=== PATIENT | male | born 1925 | race Caucasian/White ===

== ENCOUNTER 2017-07-17 13:52 | Inpatient (IN) | payer OTHER, MEDICARE ==
[~2017-07-17] VITALS: Ht 165.1 cm; Wt 70.8 kg
[~2017-07-17 13:52] MED LIST: ATORVASTATIN CA40 M1 PO; BACLOFEN10 M1 PO; DILTIAZEM 24HR240 MG PO; DONEPEZIL HCL5 MG PO; ISOSORBIDE MONO30 M1 PO; LISINOPRIL10 M1 PO; NITROSTAT0.4 M1 SL; PHENYTOIN SODI100 MG PO; RISPERDAL0.25 M1 PO; RISPERDAL1 M1 PO; TRAMADOL HCL50 M1 PO; VITAMIN B-121000 MC3 PO
[2017-07-17 14:22] LABS: ABSOLUTE BASOPHIL COUNT 0 /CUMM (0.0-0.2); ABSOLUTE EOSINOPHIL COUNT 0.3 /CUMM (0.0-0.7); ABSOLUTE GRANULOCYTE CT 4.6 /CUMM (1.4-6.5); ABSOLUTE LYMPH COUNT 0.9 /CUMM (1.2-3.4); ABSOLUTE MONOCYTE COUNT 0.5 /CUMM (0.10-0.60); BASOPHIL % 0.4 % (0.0-2.0); HEMATOCRIT 39.5 % (42-52); MEAN CORPUSCULAR HGB 28.8 PG (27.0-31.0); MEAN CORPUSCULAR HGB CONC 32.9 G/DL (33.0-37.0); MEAN CORPUSCULAR VOLUME 87.5 FL (80.0-94.0); MEAN PLATELET VOLUME 7.9 FL (7.4-10.4); PLATELET COUNT 166 /CUMM (130-400); RBC DISTRIBUTION WIDTH 14.6 % (11.5-14.5); RED BLOOD CELL CT 4.52 /CUMM (4.70-6.10); WHITE BLOOD CELL COUNT 6.3 /CUMM (4.8-10.8)
[2017-07-17 14:23] LABS: PT 12.8 SEC (9.4-12.5)
--- NOTE | 2017-07-17 15:06 | ED AMS/SEIZURE/WEAK/DIZZY ---
History of Present Illness General Chief Complaint: Altered Mental Status Stated Complaint: BIBA ALTERED MENTAL STATUS Source: patient, family Exam Limitations: poor historian Vital Signs & Intake/Output Vital Signs & Intake/Output Vital Signs Date Time Temp Pulse Resp B/P B/P Pulse O2 O2 Flow FiO2 Mean Ox Delivery Rate 07/17 1357 98.5 100 18 161/70 95 Room Air Allergies Coded Allergies: adhesive (UNKNOWN 12/05/15) Reconcile Medications Aspirin (Ecotrin*) 81 MG TABLET.DR 1 TAB PO DAILY HEART HEALTH (Reported) Atorvastatin Calcium 40 MG TABLET 1 TAB PO DAILY CHOLESTEROL (Reported) Cyanocobalamin (Vitamin B-12) (Unknown Strength) TABLET (Unknown Dose) PO AD SUPPLEMENT (Reported) Cyanocobalamin (Vitamin B-12) 1,000 MCG TABLET 1 TAB PO DAILY VITAMIN SUPPORT (Reported) Diltiazem HCl (Diltiazem 24HR ER) 240 MG CAP.ER.24H 1 CAP PO DAILY HEART/BP ( Reported) Donepezil HCl 5 MG TABLET 1 TAB PO DAILY MEMORY (Reported) Folic Acid 1 MG TABLET 1 TAB PO DAILY VITAMIN SUPPORT (Reported) Isosorbide Mononitrate (Isosorbide Mononitrate ER) 30 MG TAB.ER.24H 1 TAB PO DAILY HEART (Reported) Lisinopril 10 MG TABLET 1 TAB PO DAILY BP (Reported) Nitroglycerin (Nitrostat) (Unknown Strength) TAB.SUBL 0.3 MG SL AD PRN HEART (Reported) 1st sign of attack; may repeat every 5 minutes until relief; if pain persists after 3 tablets in 15 minutes, prompt medical att Phenytoin Sodium Extended 100 MG CAPSULE 1 CAP PO BID SEIZURES (Reported) Risperidone (Risperdal) 0.25 MG TABLET 1 TAB PO 4 TIMES/DAY MENTAL HEALTH ( Reported) Vit C/E/Zn/Coppr/Lutein/Zeaxan (Preservision Areds 2 Softgel) 250-200-40 CAPSULE 1 CAP PO BID EYE (Reported) Triage Note: PER EMS LAST SEEN BY STACI AT 2300 07/16/17,AIDE WENT TO HOUSE TODAY, PT WAS STILL ASLEEP, WHICH IS UNUSUAL FOR PT STRONG ODOR OF URINE. PER EMS UNABLE TO SPEAK FOLLOW DIRECTION UPON ED ARRIVAL ABLE TO SLOWLY MOVE ALL 4 EXTREMITIES WITH EQUAL STRENGTH, PT ANSWERS SIMPLE QUESTIONS APPROP INCONTINENT OF LARGE AMT OF STRONG ODOROUS URINE Triage Nurses Notes Reviewed? yes HPI: Patient presents for evaluation of altered mental status noted this morning by family. He was last seen in his usual state of health at about 11:00 last night. Today the patient seemed to sleep a lot more than usual. (Haylee GRIFFIN,Harvinder Trinidad) Past History Travel History Traveled to [place] past 21 day No Medical History Any Pertinent Medical History? 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 No (Haylee GRIFFIN,Harvinder Trinidad) Review of Systems Review of Systems Constitutional: Reports: no symptoms. EENTM: Reports: no symptoms. Respiratory: Reports: no symptoms. Cardiovascular: Reports: no symptoms. GI: Reports: no symptoms. Genitourinary: Reports: no symptoms. Musculoskeletal: Reports: no symptoms. Skin: Reports: no symptoms. Neurological/Psychological: Reports: see HPI. Hematologic/Endocrine: Reports: no symptoms. Immunologic/Allergic: Reports: no symptoms. All Other Systems: Reviewed and Negative (Haylee GRIFFIN,Harvinder Trinidad) Physical Exam Physical Exam General Appearance: SEE BELOW Comments: Gen.: Well-nourished, well-developed, no acute respiratory distress. Alert but somewhat lethargic appearing. Head: Normocephalic, atraumatic. Eyes: Normal inspection bilaterally Ears: Normal inspection bilaterally Nose: Normal inspection Throat/mouth : Moist mucosa Neck: Supple, full range of motion, no goiter Heart: Regular rate and rhythm, no murmurs rubs or gallops Lungs: Clear to auscultation bilaterally with normal air entry Chest: Nontender Back: Normal range of motion Abdomen: Soft, nontender, nondistended, normal bowel sounds Extremities: Normal range of motion grossly, equal radial pulses, no cyanosis clubbing or edema Neurologic: Cranial nerves grossly intact, speech is clear Skin: warm and dry Psychiatric: Calm, cooperative, no apparent delusions or hallucinations (Haylee GRIFFIN,Harvinder Trinidad) Core Measures ACS in differential dx? No CVA/TIA Diagnosis No Sepsis Present: No Sepsis Focused Exam Completed? No (Harvinder Coburn DO) Progress Differential Diagnosis: anemia, CVA/stroke, dehydration, electrolyte imbalance, hypoglycemia, hypoxia, intracranial Hem., intracranial mass/tumor, pneumonia, seizure disorder, UTI/pyelo Plan of Care: Orders Procedure Date/time Status Heart Healthy Diet 07/18 B Active Patient Data 07/17 162 Active ED Holding Orders 07/17 161 Active Admit to inpatient 07/17 1619 Active Vital Signs 07/17 161 Active EKG 07/17 161 Active CULTURE,URINE 07/17 140 Active URINALYSIS 07/17 1402 Complete TROPONIN LEVEL 07/17 1402 Complete PROTHROMBIN TIME 07/17 140 Complete COMPREHENSIVE METABOLIC PANEL 07/17 1402 Complete CBC WITHOUT DIFFERENTIAL 07/17 140 Complete Laboratory Tests 07/17/17 1408: Anion Gap 15, Estimated GFR > 60, BUN/Creatinine Ratio 19.0, Glucose 183 H, Calcium 9.4, Total Bilirubin 0.5, AST 17, ALT 32, Alkaline Phosphatase 114, Troponin I 0.02, Total Protein 6.5, Albumin 3.8, Globulin 2.7, Albumin/Globulin Ratio 1.4, PT 12.8 H, INR 1.17, CBC w Diff NO MAN DIFF REQ, RBC 4.52 L, MCV 87.5, MCH 28.8, MCHC 32.9 L, RDW 14.6 H, MPV 7.9, Gran % 73.0, Lymphocytes % 14.6 L, Monocytes % 8.0, Eosinophils % 4.0, Basophils % 0.4, Absolute Granulocytes 4.6, Absolute Lymphocytes 0.9 L, Absolute Monocytes 0.5, Absolute Eosinophils 0.3, Absolute Basophils 0 07/17/17 1400: Urinalysis LIGHT H, Urine Color YEL, Urine Clarity HAZY H, Urine pH 6.0, Ur Specific [place] 1.020, Urine Protein NEG, Urine Ketones NEG, Urine Nitrite NEG, Urine Bilirubin NEG, Urine Urobilinogen 0.2, Ur Leukocyte Esterase NEG, Ur Microscopic SEDIMENT EXAMINED, Urine RBC 15-25 H, Urine WBC 1-3 H, Ur Epithelial Cells FEW, Hyaline Casts RARE H, Granular Casts RARE H, Urine Mucus FEW, Urine Hemoglobin MOD H, Urine Glucose NEG Microbiology 07/17 1400 URINE ROUT: Urine Culture - RECD Comments: 07/17/2017 3:46:12 PM patient signed out to Dr. Coburn at shift exchange administrator. (Harvinder Leach MD) Initial ED EKG: pending (Harvinder Coburn DO) Departure Departure Condition: Stable Referrals: Uday Marina MD (PCP/Family) Departure Forms: Customer Survey General Discharge Information (Harvinder Leach MD) Departure Disposition: STILL A PATIENT Clinical Impression Primary Impression: Altered mental status Secondary Impressions: CHF (congestive heart failure) Admission Note Spoke With: Alexander Leslie MD Documentation of Exam: Documentation of any treatments & extenuating circumstances including Concerns Regarding Discharge (functional status, medication knowledge or non-compliance, living conditions, etc.) that warrant an admission rather than observation: [ Patient needs admission for telemetry monitoring, serial troponins, neuro checks every 6 hours, consider MRI of the head] 07/17/17 4:30 PM The patient was signed out to me by Dr. Leach. He is being admitted to the telemetry unit for further care. EKG shows lateral T-wave abnormality and poor R-wave progression which is new compared to the old tracing. (Harvinder Coburn DO)
[2017-07-17] MEDS ORDERED: VITAMIN B-121000 MC3 PO (15:11)
[2017-07-17] MEDS ORDERED: ASPIRIN EC81 M1 PO (15:11)
[2017-07-17] MEDS ORDERED: FOLIC ACID1 M1 PO (15:11)
[2017-07-17] MEDS ORDERED: PRESERVISION A1 EAC1 PO (15:11)
[2017-07-17] MEDS ORDERED: RISPERDAL0.25 M1 PO (15:12)
--- NOTE | 2017-07-17 15:13 | RADIOLOGY REPORT ---
EXAMINATION: XR CHEST CLINICAL INFORMATION: Found by family. Nonverbal COMPARISON: Chest x-ray 12/05/2015 TECHNIQUE: 2 views of the chest were obtained. FINDINGS: Cardiomediastinal contour is unchanged. The heart size appears mildly enlarged. There are calcifications of the aorta. There is mild central pulmonary vascular congestion with increased lung markings, mild interstitial edema. There is no focal consolidation or pleural effusion. There is degenerative spondylosis of dorsal spine with multilevel disc height narrowing and endplate spurring of vertebrae. IMPRESSION: Mild central pulmonary vascular congestion with increased lung markings, mild interstitial edema.
--- NOTE | 2017-07-17 16:00 | CT SCAN REPORT ---
EXAMINATION: CT HEAD WITHOUT CONTRAST CLINICAL INFORMATION: Altered mental status. COMPARISON: CT head 12/05/2015 TECHNIQUE: Contiguous axial imaging was performed from the skull base to vertex without intravenous administration of contrast. DLP: 617.13 mGy-cm FINDINGS: There is no evidence of acute intracranial hemorrhage or territorial infarction. No abnormal mass effect or midline shift is seen. Myles to white matter differentiation is well preserved. No extra-axial fluid collections are identified. There is atrophy with prominence of the ventricles and the sulci and hypodensity of the periventricular white matter due to chronic small vessel ischemic disease. There is vascular calcifications of the internal carotid arteries bilaterally. There is soft tissue density opacifying the frontal sinuses bilateral extending into the superior anterior ethmoids. The mastoid air cells and middle ear cavities are normally aerated. IMPRESSION: 1. No acute intracranial pathology. 2. Sinus disease.
--- NOTE | 2017-07-17 17:32 | History & Physical ---
Kumar Daniels MD 07/17/17 1017: General Information and HPI History of Present Illness: 89-year-old man with past medical history of Alzheimer's dementia, coronary artery disease, hypertension, hyperlipidemia, seizure disorder for 30+ years, gastrointestinal bleed, and mild blindness brought in by ambulance for evaluation of confusion and urinary incontinence. Patient was previously admitted to [facility] from 11/30/15-12/05/15 for altered mental status thought to be secondary to medications (baclofen, tramadol ). These medications were discontinued and patient was started on risperidone and instructed to follow-up with geriatric psychiatrist as an outpatient which she reportedly failed to do. Patient's and multiple family members are present during the interview and offer collateral information. Patient's reports that she last saw her late last evening and his usual normal state of health without any complaints. His baseline mental status is waxing/waning with multiple episodes of confusion per day. He is otherwise independent in all ADLs but needs assistance with multiple IADLs which his performs for him. Patient reportedly was found in his bed around noontime and reportedly never sleeps that late. He ate lunch and shortly thereafter complained of a moderate headache and that he "can't breathe". Patient's gave him a tablet of nitroglycerin for some mild" chest pain". For further evaluation the symptoms EMS was called and patient was brought to the [place] ED for evaluation. Presently patient is oriented to person but not year, month, place, time and does not know who the president is. He reports a mild left-sided headache that radiates to his neck but otherwise denies any limited movement of his neck or photophobia. Patient is a poor historian and offers little information. Review of systems He otherwise denies any fever, chills, lightheadedness, dizziness, blurred/ double vision, chest pain, palpitations, heartburn, shortness breath, cough, nausea, vomiting, diarrhea, or bowel/bladder issues. Allergies/Medications Allergies: Coded Allergies: adhesive (UNKNOWN 12/05/15) Home Med list Aspirin (Ecotrin*) 81 MG TABLET. 1 TAB PO DAILY HEART HEALTH (Reported) Atorvastatin Calcium 40 MG TABLET 1 TAB PO DAILY CHOLESTEROL (Reported) Cyanocobalamin (Vitamin B-12) 1,000 MCG TABLET 1 TAB PO DAILY VITAMIN SUPPORT (Reported) Diltiazem HCl (Diltiazem 24HR ER) 240 MG CAP.ER.24H 1 CAP PO DAILY HEART/BP ( Reported) Donepezil HCl 5 MG TABLET 1 TAB PO DAILY MEMORY (Reported) Folic Acid 1 MG TABLET 1 TAB PO DAILY VITAMIN SUPPORT (Reported) Isosorbide Mononitrate (Isosorbide Mononitrate ER) 30 MG TAB.ER.24H 1 TAB PO DAILY HEART (Reported) Lisinopril 10 MG TABLET 1 TAB PO DAILY BP (Reported) Nitroglycerin (Nitrostat) (Unknown Strength) TAB.SUBL 0.3 MG SL AD PRN HEART (Reported) 1st sign of attack; may repeat every 5 minutes until relief; if pain persists after 3 tablets in 15 minutes, prompt medical att Phenytoin Sodium Extended 100 MG CAPSULE 1 CAP PO BID SEIZURES (Reported) Risperidone (Risperdal) 0.25 MG TABLET 1 TAB PO 4 TIMES/DAY MENTAL HEALTH ( Reported) Vit C/E/Zn/Coppr/Lutein/Zeaxan (Preservision Areds 2 Softgel) 250-200-40 CAPSULE 1 CAP PO BID EYE (Reported) Past History Travel History Traveled to [place] past 21 day No Medical History Neurological: Alzheimer's disease, seizure, TIA EENT: LEGALLY BLIND Cardiovascular: CAD, hypertension, hyperlipidemia Respiratory: bronchitis Gastrointestinal: GI bleed Hepatic: NONE Renal: NONE Musculoskeletal: NONE Psychiatric: NONE Endocrine: NONE Blood Disorders: NONE Cancer(s): NONE 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 Home Who Do You Live With? spouse Services at Home: None Primary Language: Occitan Functional Ability ADLs Independent: dressing, eating, toileting, bathing. Ambulation: independent IADLs Needs Assist: shopping, housework, finances, food prep, telephone, transportation, medication admin. Review of Systems Review of Systems Constitutional: Reports: see HPI. Exam & Diagnostic Data Last 24 Hrs of Vital Signs/I&O Vital Signs Date Time Temp Pulse Resp B/P B/P Pulse O2 O2 Flow FiO2 Mean Ox Delivery Rate 07/17 1357 98.5 100 18 161/70 95 Room Air Intake & Output 07/17 1600 07/17 0800 07/17 0000 Intake Total Output Total 20 Balance -20 Output, Urine 20 Physical Exam General Appearance Alert, Cooperative, No Acute Distress, AAOx1 Skin No Rashes, No Breakdown, No Significant Lesion Skin Temp/Moisture Exam: Warm/Dry Sepsis Skin Exam (color): Normal for Ethnicity HEENT Atraumatic, PERRLA, EOMI, Mucous Membr. moist/pink Neck Supple, No JVD Cardiovascular Regular Rate, 3/6 AMADOR in aortic area with late s2 Lungs Clear to Auscultation, Normal Air Movement Abdomen Normal Bowel Sounds, Soft, No Tenderness, No Hepatospenomegaly, No Masses Neurological Normal Speech, Strength at 5/5 X4 Ext, Normal Tone, Sensation Intact, Cranial Nerves 3-12 NL, Gait not assessed, speech fluent, coordination intact Extremities No Clubbing, No Cyanosis, No Edema, Normal Pulses, No Tenderness/ Swelling Vascular Normal Pulses, Pulses Symmetrical Last 24 Hrs of Labs/Carlos A: Laboratory Tests 07/17/17 1408: Anion Gap 15, Estimated GFR > 60, BUN/Creatinine Ratio 19.0, Glucose 183 H, Calcium 9.4, Total Bilirubin 0.5, AST 17, ALT 32, Alkaline Phosphatase 114, Creatine Kinase 46 L, Troponin I 0.02, [id number] Pept Pending, Total Protein 6.5, Albumin 3.8, Globulin 2.7, Albumin/Globulin Ratio 1.4, TSH &T3 & Free T4 Intrp Pending, PT 12.8 H, INR 1.17, CBC w Diff NO MAN DIFF REQ, RBC 4.52 L, MCV 87.5, MCH 28.8, MCHC 32.9 L, RDW 14.6 H, MPV 7.9, Gran % 73.0, Lymphocytes % 14.6 L, Monocytes % 8.0, Eosinophils % 4.0, Basophils % 0.4, Absolute Granulocytes 4.6, Absolute Lymphocytes 0.9 L, Absolute Monocytes 0.5, Absolute Eosinophils 0.3, Absolute Basophils 0 07/17/17 1400: Urinalysis LIGHT H, Urine Color YEL, Urine Clarity HAZY H, Urine pH 6.0, Ur Specific [place] 1.020, Urine Protein NEG, Urine Ketones NEG, Urine Nitrite NEG, Urine Bilirubin NEG, Urine Urobilinogen 0.2, Ur Leukocyte Esterase NEG, Ur Microscopic SEDIMENT EXAMINED, Urine RBC 15-25 H, Urine WBC 1-3 H, Ur Epithelial Cells FEW, Hyaline Casts RARE H, Granular Casts RARE H, Urine Mucus FEW, Urine Hemoglobin MOD H, Urine Glucose NEG Microbiology 07/17 1400 URINE ROUT: Urine Culture - RECD Assessment/Plan Assessment: 89-year-old man with multiple medical problems seen for evaluation of confusion and altered mental status worse than baseline with urinary incontinence. ED course -Vitals: Temp 98.5, HR 100, RR 18, SBP 161, O2 95% on room air -CBC: WBC 6.3, hemoglobin 13.0, hematocrit 39.5, platelet 166 -BMP: Sodium 143, potassium 4.0, chloride 104, CO2 25, urea 19, creatinine 1.0, anion gap 15, glucose 183 -LFT: Within normal limits -Miscellaneous: Troponin 0.02, INR 1.17 and-urinalysis: WBC 1-3, RBC 15-25 with moderate hemoglobin, negative for nitrate/glucoside esterase -CXR: Mild central pulmonary vascular congestion with interstitial edema -CT head without IV contrast: No acute intracranial pathology -EKG: Sinus arrhythmia with old ST changes in V1-V2 -Echocardiogram 01/21/17: LVEF 45-50% with inferior/posterior hypokinesis and stage I diastolic dysfunction Given patient's baseline Alzheimer's dementia mental status is difficult to determine. According to his this morning he was at baseline however has returned to "more or less" his regular self. Patient did not take his medications this morning which may account for his elevated blood pressure and heart rate. She is physical exam is only remarkable for a loud systolic ejection murmur with a history of moderate/severe aortic stenosis. Patient most likely has altered mental status due to his baseline dementia with probable dehydration; toxic metabolic encephalopathy is entirely possible but he has no current evidence of infection. He is to be admitted to the telemetry floor and placed on fall/seizure precautions given that he missed his antiepileptics this morning. CPK, TSH, and BMP are to be evaluated PT evaluation should be obtained tomorrow to assess for any functional declined. Problem list -Altered mental status -Urinary incontinence -History of Alzheimer's Dementia, on Donepezil -Coronary Artery Disease -Moderate / Severa Aortic Stenosis -Hypertension -Hyperlipidemia -History of GI Bleed Plan -Admit to telemetry -Neuro checks every 6 hours -Fall/seizure precautions -Continue home meds: aspirin, atorvastatin, B12, cardizem, donepezil, folic acid , imdur, lisinopril, phenytoin, risperidone -PT evaluation -Follow up cultures & sensitivities -Check TSHR, BNP, CPK -Pain control with acetaminophen -Heart Healthy Diet -DVT PPx with subcutaneous heparin -FULL CODE As Ranked By This Provider Problem List: 1. Dementia Core Measures/Misc (12/21) Acute Coronary Syndrome ACS Diagnosis: No Congestive Heart Failure Congestive Heart Failure Diagnosis No Cerebrovascular Accident CVA/TIA Diagnosis: No VTE (View Protocol) VTE Risk Factors Age>40 No Mechanical VTE Prophylaxis d/t N/A MechProphylax Ordered No VTE Pharm Prophylaxis d/t NA PharmProphylax ordered Sepsis (View protocol) Sepsis Present: No Alexander Leslie 07/17/17 1749: Attending MD Review Statement Attending Statement Attending MD Statement: examined this patient, discuss w/resident/PA/PEDODONTIST, agreed w/resident/PA/PEDODONTIST, discussed with family, reviewed EMR data (avail), discussed with nursing, discussed with case mgmt, reviewed images, amended to note Attending Assessment/Plan: 89 o/m with above mentioned history comes with altered mental status and doubt chest pain. He is poor histroian. History obtained from family/collateral history. He does c/o headache. His labs unremarkable, Chest xray with interstiial edema, received lasix in ER. Obtain bnp, telemetry admit with frequent neruochecks, serial cardiac enzymes r/o TX. Confirm home meds
[2017-07-17 23:22] VITALS: BP 136/86
[2017-07-18 06:30] VITALS: BP 150/68
[2017-07-18 08:02] LABS: ABSOLUTE BASOPHIL COUNT 0 /CUMM (0.0-0.2); ABSOLUTE EOSINOPHIL COUNT 0.2 /CUMM (0.0-0.7); BASOPHIL % 0.4 % (0.0-2.0); MEAN CORPUSCULAR HGB 29.2 PG (27.0-31.0)
[2017-07-18 08:22] LABS: ABSOLUTE GRANULOCYTE CT 7.6 /CUMM (1.4-6.5); ABSOLUTE MONOCYTE COUNT 0.7 /CUMM (0.10-0.60); EOSINOPHIL % 2.1 % (0-5); GRANULOCYTE % 79.8 % (42.2-75.2); HEMATOCRIT 40.9 % (42-52); MEAN CORPUSCULAR HGB CONC 33.4 G/DL (33.0-37.0); MEAN CORPUSCULAR VOLUME 87.5 FL (80.0-94.0); MEAN PLATELET VOLUME 8.8 FL (7.4-10.4); PLATELET COUNT 172 /CUMM (130-400); RBC DISTRIBUTION WIDTH 14.4 % (11.5-14.5); RED BLOOD CELL CT 4.67 /CUMM (4.70-6.10)
[2017-07-18 08:30] LABS: WHITE BLOOD CELL COUNT 9.5 /CUMM (4.8-10.8)
[2017-07-18 14:30] VITALS: BP 120/62
--- NOTE | 2017-07-18 18:00 | PN- Att Addend ---
Attending Addendum Attending Brief Note 89M PMH Alzheimer's dementia, coronary artery disease, hypertension, hyperlipidemia, seizure disorder for 30+ years, gastrointestinal bleed, and legally blind brought in for sleepiness, agitation. Overnight was agitated requiring restraints. He is currently sleeping and unable to provide history. at bedside provides history. Patient complained of chest pain at home to so patient was placed on telemetry. No EKG changes or troponin. Labs unremarkable. Plan - Continue on telemetry - Would discontinue standing Risperidone and make it PRN instead, as patient is very somnolent - Give Lasix 20mg IV once - I/O, daily weights - Cardiology consult - Continue remaining home medications - Follow cultures - DVT PPx
[2017-07-18 18:49] VITALS: BP 108/62
--- NOTE | 2017-07-18 20:44 | Event Note ---
See Addendum Event Note Event Note: Patient noted to have low grade fever on the chart (100), unknown if this is reported to MD. He was admitted for confusion and urinary incontinence. Yesterday he was agitated which requiring restraints. He was also noted to UA which was hazy with +ve RBs and WBCs. I'll start the patient on Ceftrixone as UTI can present with confusion, delerium in elderly, he also present with incontinence.
[2017-07-18 22:18] VITALS: BP 118/76
[2017-07-19] VITALS (11 sets, daily range): BP systolic 100–126; BP diastolic 60–84
--- NOTE | 2017-07-19 10:16 | PN- Housestaff ---
Jose GRIFFIN,Silvana 07/19/17 1016: Subjective Follow-up For: AMS Subjective: pt refusing all his meds today and keeps repeating "please stop" if I attempt to even place my stethescope on him. He had low grade temp this am. Review of Systems Constitutional: Reports: no symptoms. Objective Last 24 Hrs of Vital Signs/I&O Vital Signs Date Time Temp Pulse Resp B/P B/P Pulse O2 O2 Flow FiO2 Mean Ox Delivery Rate 07/19 1246 101.0 07/19 0650 98.5 70 20 126/80 90 07/18 2218 99.0 68 26 118/76 93 07/18 2138 Room Air 07/19 2003 99.8 07/19 2003 99.8 07/18 1906 1.4 07/18 1849 100.0 71 22 108/62 94 Room Air 07/18 1430 99.6 70 20 120/62 91 Room Air Intake & Output 07/19 1600 07/19 0800 07/19 0000 Intake Total 60 Output Total Balance 60 Intake, Oral 60 Patient 70.987 kg Weight Physical Exam General Appearance: Mild Distress Skin: No Significant Lesion HEENT: Atraumatic Neck: Supple Cardiovascular: tachycardic Lungs: crackles throughout. He would not sit up for me Abdomen: Soft, No Tenderness Extremities: No Edema Last 24 Hrs of Lab/Carlos A Results Last 24 Hrs of Labs/Mics: Laboratory Tests 07/19/17 1054: Troponin I 0.13 *H 07/19/17 0645: Anion Gap 15, Estimated GFR > 60, BUN/Creatinine Ratio 26.0 H, Vitamin B12 841, Folate 12.9, TSH 1.010, Total T3 0.74 L, Phenytoin 3.3 L Microbiology 07/19 1240 BLOOD: Blood Culture - ORD 07/19 1240 BLOOD: Blood Culture - ORD Assessment/Plan Assessment: This is a 89 yo male with PMH of Alzheimers dementia, CAD, HTN, HLD, legally blind, seizure d/o, GIB who comes in for CC of somnolence, confusion and urinary incontinence. Will evaluate for the following: PLAN Altered mental status: CT head shows atrophy w/ prominence of ventricles and chronic small vessel disease. Pt has WBC 6.3-9.5 and has low grade temperature up to 100.0. His UA had 1-3 wbc, few cast and some nitrite and LE. He was started on ceftriaxone by overnight team. * Hold standing risperdal and make PRN for agitation * Will stop Ceftriaxone Chest pain: Pt c/o CP at home. bnp 4320. TSH WNL. Note XRY: Mild central pulmonary vascular congestion with increased lung markings, mild interstitial edema. * EKG/Trops * I/O and daily weights * Cardio consult History of Alzheimer's Dementia * Con't Donepezil * Check B12/Folate/TSH Moderate / Severe Aortic Stenosis: * echo * Got 20 of IV lasix yesterday. Will be cautious and administer per clinical status Coronary Artery Disease/Hypertension/Hyperlipidemia: * Con't lisinopril 10mg * Con't Isosorbide Mononitrate * Con't Statin * Con't ASA * Con't Diltiazem Hx seizures * Con't Phenytoin * Check level * Con't Folic acid Incidental finding of Soft tissue density opacifying the frontal sinuses: F/U out pt FC CHEM PPX HH Diet Problem List: 1. Chest pain 2. CAD (coronary artery disease) Pain Ratin Pain Location: none Pain Goal: Remain pain free Pain Plan: none Tomorrow's Labs & Rationales: cbc bep Link Paul MD 07/19/17 1515: Attending MD Review Statement Attending Statement Attending MD Statement: examined this patient, discuss w/resident/PA/TRAINING PROJECT MANAGER, agreed w/resident/PA/TRAINING PROJECT MANAGER, reviewed EMR data (avail) Attending Assessment/Plan: 89M PMH Alzheimer's dementia, coronary artery disease, hypertension, hyperlipidemia, seizure disorder for 30+ years, gastrointestinal bleed, and legally blind brought in for sleepiness, agitation. Overnight was agitated requiring restraints. He is currently sleeping and unable to provide history. at bedside provides history. Patient complained of chest pain at home to so patient was placed on telemetry. Spiked 101 today, troponin now 0.13, no EKG changes. Mental status unchanged. 1. Altered mental status 2. Fever 3. Elevated troponin Plan - Continue on telemetry - Risperidone PRN - ASA 81mg - Sputum culture, repeat UA, urine culture, blood culture - Start Unasyn for likely aspiration - I/O, daily weights - Cardiology consult - Continue remaining home medications - Follow cultures - DVT PPx
--- NOTE | 2017-07-19 14:46 | RADIOLOGY REPORT ---
EXAMINATION: XR CHEST PORTABLE CLINICAL INFORMATION: A 61-year-old male presented with fever. COMPARISON: Chest done on 07/17/2017. TECHNIQUE: Portable frontal view of the chest was obtained. FINDINGS: The cardiomediastinal silhouette is mildly enlarged. Bilateral hilar prominence is noted, likely represent enlarged pulmonary arteries, likely secondary to underlying pulmonary arterial hypertension. Mild pulmonary venous congestion is noted. No discrete focal airspace disease identified. Previously documented interstitial edema appears resolved. There is no pleural effusion present. Visualized upper abdomen is unremarkable. IMPRESSION: 1. Compared to most recent prior study dated 07/17/2017, previously documented interstitial edema shows interval resolution. 2. No other significant change. Specifically, no radiographic evidence of pneumonia.
--- NOTE | 2017-07-19 16:24 | Event Note ---
Event Note Event Note: Informed by the nursing staff that patient was in A. fib based on telemetry monitoring at approximately 1500, based on telemetry recording this occurred at approximately 1330. At this time 12-lead EKG was obtained showing the patient was in A. fib. 5 mg of IV diltiazem push was ordered as the patient had been refusing by mouth medications including his by mouth diltiazem. At this time it was requested that the nurse draw up the medication and the on-call resident Dr. Ordoñez was waiting to push it. After the medicine was pushed, the nursing staff realized that rather than 5 mg being drawn up, 5 mL was drawn leading to significant overmedication. Dr. De La Torre, on-call bottle machine operator, was informed of the conversion to atrial fibrillation and was also informed of the overdosing of Cardizem. Atropine was made available at bedside, and pacer pads were placed. IV heparin drip was started for anticoagulation given new onset of atrial fibrillation, stool guaiac was performed and was negative.
--- NOTE | 2017-07-19 17:47 | Cons- Cardiology ---
General Information and HPI Consulting Request Date of Consult: 07/19/17 Requested By: Alexander Leslie MD Reason for Consult: "New onset" atrial fibrillation and troponin I elevation. Source of Information: family, old records Exam Limitations: dementia History of Present Illness: Mr. Ashwin Peoples is an 89-year-old male with a history of advanced dementia, hypertension, dyslipidemia, remote stroke with little residua, carotid artery disease (s/p L CEA 12/18/2005), mild to moderate concentric left ventricular hypertrophy with mild LV dysfunction (EF 45-50%), stage I diastolic dysfunction, mild-moderate range aortic stenosis by echocardiography (01/21/2017 ) and coronary artery disease (s/p ND w/ cath managed medically 1986; angina pectoris prompted POBA-LCx 1993) who presented from home, where he lives with his , to the ED on 07/17/2017 following an episode of unresponsiveness and who we are asked to evaluate after he was observed to go from normal sinus rhythm into atrial fibrillation/flutter with a slightly rapid ventricular response. The patient can give no reliable history secondary to his dementia, but his denies him having had any recent complaints of chest discomfort, palpitations, shortness of breath, edema, etc. Allergies/Medications Allergies: Coded Allergies: adhesive (UNKNOWN 12/05/15) Home Med List: Aspirin (Ecotrin*) 81 MG TABLET.DR 1 TAB PO DAILY HEART HEALTH (Reported) Atorvastatin Calcium 40 MG TABLET 1 TAB PO DAILY CHOLESTEROL (Reported) Cyanocobalamin (Vitamin B-12) 1,000 MCG TABLET 1 TAB PO DAILY VITAMIN SUPPORT (Reported) Diltiazem HCl (Diltiazem 24HR ER) 240 MG CAP.ER.24H 1 CAP PO DAILY HEART/BP ( Reported) Donepezil HCl 5 MG TABLET 1 TAB PO DAILY MEMORY (Reported) Folic Acid 1 MG TABLET 1 TAB PO DAILY VITAMIN SUPPORT (Reported) Isosorbide Mononitrate (Isosorbide Mononitrate ER) 30 MG TAB.ER.24H 1 TAB PO DAILY HEART (Reported) Lisinopril 10 MG TABLET 1 TAB PO DAILY BP (Reported) Nitroglycerin (Nitrostat) (Unknown Strength) TAB.SUBL 0.3 MG SL AD PRN HEART (Reported) 1st sign of attack; may repeat every 5 minutes until relief; if pain persists after 3 tablets in 15 minutes, prompt medical att Phenytoin Sodium Extended 100 MG CAPSULE 1 CAP PO BID SEIZURES (Reported) Risperidone (Risperdal) 0.25 MG TABLET 1 TAB PO 4 TIMES/DAY MENTAL HEALTH ( Reported) Vit C/E/Zn/Coppr/Lutein/Zeaxan (Preservision Areds 2 Softgel) 250-200-40 CAPSULE 1 CAP PO BID EYE (Reported) Past History Travel History Traveled to [place] past 21 day No Medical History Neurological: Alzheimer's disease, seizure, TIA EENT: LEGALLY BLIND Cardiovascular: CAD, hypertension, hyperlipidemia Respiratory: bronchitis Gastrointestinal: GI bleed Hepatic: NONE Renal: NONE Musculoskeletal: NONE Psychiatric: NONE Endocrine: NONE Blood Disorders: NONE Cancer(s): NONE DIRECTOR LEARNING SERVICES/Reproductive: NONE Surgical History Surgical History: appendectomy, cataract removal, hernia repair-inguinal, L carotid endarterectomy Family History Relations & Conditions If Any: MOTHER FH: diabetes mellitus Psychosocial History Where Do You Live? Home Who Do You Live With? spouse Services at Home: None Primary Language: Israeli Smoking Status: Never Smoked Functional Ability ADLs Independent: dressing, eating, toileting, bathing. Ambulation: independent IADLs Needs Assist: shopping, housework, finances, food prep, telephone, transportation, medication admin. Exam & Diagnostic Data Vital Signs and I&O Vital Signs Date Time Temp Pulse Resp B/P B/P Pulse O2 O2 Flow FiO2 Mean Ox Delivery Rate 07/19 1734 101 108/68 07/19 1700 93 108/70 07/19 1630 108 110/70 07/19 1630 88 100/70 07/19 1454 100.6 100 20 110/60 93 Room Air 07/19 1345 100.6 07/19 1246 101.0 07/19 0650 98.5 70 20 126/80 90 07/18 2218 99.0 68 26 118/76 93 07/18 2138 Room Air 07/18 2004 99.8 07/18 2004 99.8 07/18 1906 1.4 07/18 1849 100.0 71 22 108/62 94 Room Air Intake & Output 07/19 1600 07/19 0800 07/19 0000 07/18 1600 07/18 0800 07/18 0000 Intake Total 225 60 200 120 Output Total 300 391 310 8035 Balance -75 60 -150 -280 -1600 Intake, IV 200 Intake, Oral 25 60 200 120 Output, Urine 300 759 781 9375 Patient 157 lb 160 lb Weight Physical Exam: Well-developed, well-nourished elderly male who is mildly agitated and no acute distress with nasal oxygen in place. Vital signs: See above. HEENT: Normocephalic, atraumatic, EOMI, slightly dry mucous membranes. Neck: No JVD. Left CEA scar. Lungs: Decreased breath sounds bilaterally. Heart: S1, S2 (diminished) with grade 2/6 systolic ejection type murmur best heard at the base. No gallop or rub. PMI fifth ICS at [facility]. Abdomen: Soft, nontender, positive bowel sounds. Extremities: No edema. Labs/Carlos A Results: Laboratory Tests 07/19 07/19 07/19 1519 1054 0645 Chemistry Sodium (137 - 145 mmol/L) 141 Potassium (3.5 - 5.1 mmol/L) 4.0 Chloride (98 - 107 mmol/L) 102 Carbon Dioxide (22 - 30 mmol/L) 23 Anion Gap (5 - 16) 15 BUN (9 - 20 mg/dL) 26 H Creatinine (0.7 - 1.2 mg/dL) 1.0 Estimated GFR (>60 ml/min) > 60 BUN/Creatinine Ratio (7 - 25 %) 26.0 H Troponin I (<0.11 ng/ml) 0.35 *H 0.13 *H Vitamin B12 (239 - 931 pg/mL) 841 Folate (2.76 - 20.0 ng/mL) 12.9 TSH (0.270 - 4.200 uIU/mL) 1.010 Total T3 (0.97 - 1.69 ng/mL) 0.74 L Toxicology Phenytoin (10.0 - 20.0 ug/mL) 3.3 L 07/18 0645 Chemistry Sodium (137 - 145 mmol/L) 141 Potassium (3.5 - 5.1 mmol/L) 3.6 Chloride (98 - 107 mmol/L) 107 Carbon Dioxide (22 - 30 mmol/L) 23 Anion Gap (5 - 16) 11 BUN (9 - 20 mg/dL) 17 Creatinine (0.7 - 1.2 mg/dL) 0.8 Estimated GFR (>60 ml/min) > 60 BUN/Creatinine Ratio (7 - 25 %) 21.3 Magnesium (1.6 - 2.3 mg/dL) 1.9 Hematology CBC w Diff NO MAN DIFF REQ WBC (4.8 - 10.8 /CUMM) 9.5 RBC (4.70 - 6.10 /CUMM) 4.67 L Hgb (14.0 - 18.0 G/DL) 13.6 L Hct (42 - 52 %) 40.9 L MCV (80.0 - 94.0 FL) 87.5 MCH (27.0 - 31.0 PG) 29.2 MCHC (33.0 - 37.0 G/DL) 33.4 RDW (11.5 - 14.5 %) 14.4 Plt Count (130 - 400 /CUMM) 172 MPV (7.4 - 10.4 FL) 8.8 Gran % (42.2 - 75.2 %) 79.8 H Lymphocytes % (20.5 - 51.1 %) 10.5 L Monocytes % (1.7 - 9.3 %) 7.2 Eosinophils % (0 - 5 %) 2.1 Basophils % (0.0 - 2.0 %) 0.4 Absolute Granulocytes (1.4 - 6.5 /CUMM) 7.6 H Absolute Lymphocytes (1.2 - 3.4 /CUMM) 1.0 L Absolute Monocytes (0.10 - 0.60 /CUMM) 0.7 H Absolute Eosinophils (0.0 - 0.7 /CUMM) 0.2 Absolute Basophils (0.0 - 0.2 /CUMM) 0 Diagnostic Data EKG Results 07/19/2017 at 1049: Sinus rhythm, CHIN, probable ASMI, anterolateral/bilateral mild ST depression, cannot exclude ischemia, and prolonged QT interval. EKG 07/19/2017 at 1536: Atrial fibrillation/flutter with rapid ventricular response, probable AASM I, and anterolateral/high lateral ST changes. CXR Results 07/19/2017: 1. Compared to most recent prior study dated 07/17/2017, previously documented interstitial edema shows interval resolution. 2. No other significant change. Specifically, no radiographic evidence of pneumonia. Assessment/Plan Assessment/Plan [id number] w/ hx of advanced dementia, HTN, HLD, remote stroke w/ little residua , carotid artery disease (s/p L CEA 12/18/2005), mild to moderate concentric LVH w/ mild LV dysfunction (EF 45-50%), stage I diastolic dysfunction, mild-moderate range by echo (01/21/2017) & CAD (s/p ND w/ cath managed medically 1986; angina pectoris prompted POBA-LCx 1993) who presented from home, where he lives with his , to the ED on 07/17/2017 following an episode of unresponsiveness and who we are asked to evaluate after he was observed to go from normal sinus rhythm into atrial fibrillation/flutter w/ a slightly rapid ventricular response earlier today. The warehouse stocker related the fact that the patient had been accidentally given an IV bolus of diltiazem 25 mg 1 instead of the 5 mg that had been ordered. A short while later the patient had an asymptomatic 3 second pause, but since that time has had an acceptable heart rate. The patient also has a significantly elevated [id number] Score & should be anticoagulated if there are no contraindications. We will place him on IV unfractionated heparin and make a decision about further anticoagulation after discussion with his attending intensivist (Alexis Bush M.D.) who knows the patient's home environment, fall risk, etc. Suspect that his modest troponin elevation is on the basis of a type II ND and not an ACS, but with his risk equivalent and multiple risk factors for coronary artery disease will monitor this closely. Continue on telemetry with strict inputs and outputs. DVT prophylaxis being addressed. Note that his temperature is elevated and will need to be fully evaluated. Consult Acknowledgment - Thank you for your consult request.
[2017-07-20 02:30] LABS: PTT 53 SEC (25-37)
--- NOTE | 2017-07-20 04:02 | Event Note ---
Event Note Event Note: Situation: Elevation in troponin from 0.37 to 0.62 with new EKG changes Brief: 89yo gentleman admitted for AMS. Found to have new onset A.fib earlier today and was started on IV Heparin for AC. He was found to have modest elevation in troponins earlier. His 2am labs showed troponin 0.62 along with new EKG changes of ST elevation in V1-V3. On physical exam, patient is disoriented and unable to tell if he is experiencing any chest pain. His CV exam shows AMADOR which appears to be present since admission. Supervisor Packing Room Dr De La Torre was informed of the changes. He suggested to keep a close eye on the patient for now.
[2017-07-20 07:15] VITALS: BP 112/58
[2017-07-20 07:56] LABS: ABSOLUTE BASOPHIL COUNT 0 /CUMM (0.0-0.2); ABSOLUTE EOSINOPHIL COUNT 0 /CUMM (0.0-0.7); ABSOLUTE GRANULOCYTE CT 8.3 /CUMM (1.4-6.5); ABSOLUTE LYMPH COUNT 1.1 /CUMM (1.2-3.4); ABSOLUTE MONOCYTE COUNT 1.4 /CUMM (0.10-0.60); BASOPHIL % 0.1 % (0.0-2.0); EOSINOPHIL % 0.2 % (0-5); GRANULOCYTE % 76.9 % (42.2-75.2); HEMATOCRIT 39.1 % (42-52); MEAN CORPUSCULAR HGB 29.3 PG (27.0-31.0); MEAN CORPUSCULAR HGB CONC 33.4 G/DL (33.0-37.0); MEAN CORPUSCULAR VOLUME 87.7 FL (80.0-94.0); MEAN PLATELET VOLUME 8.9 FL (7.4-10.4); PLATELET COUNT 182 /CUMM (130-400); RBC DISTRIBUTION WIDTH 14.6 % (11.5-14.5); RED BLOOD CELL CT 4.46 /CUMM (4.70-6.10); WHITE BLOOD CELL COUNT 10.8 /CUMM (4.8-10.8)
[2017-07-20 08:48] LABS: PTT 82 SEC (25-37)
--- NOTE | 2017-07-20 10:42 | PN- Housestaff ---
Ministerio GRIFFIN,Lisa 07/20/17 1042: Subjective Follow-up For: AMS New onset afib Troponin elevation Fever of unknown origin Complaints: pt unable to provide hx Tele-Events Since Last Visit: Patient had new onset atrial flutter/A. fib at 1:30 PM yesterday. Overnight his heart rates ranged from 67-104 with first-degree heart block NM interval 0.28 Subjective: Patient has baseline dementia and is agitated this morning, refusing to speak with me when questioned. Patient has refused to swallow his medications as well. Review of Systems Constitutional: Reports: no symptoms. EENTM: Reports: no symptoms. Cardiovascular: Reports: no symptoms. Respiratory: Reports: no symptoms. Gastrointestinal: Reports: no symptoms. Objective Last 24 Hrs of Vital Signs/I&O Vital Signs Date Time Temp Pulse Resp B/P B/P Pulse O2 O2 Flow FiO2 Mean Ox Delivery Rate 07/20 714 98.7 81 20 112/58 94 Room Air 07/19 2303 98.8 100 22 118/84 91 07/19 2036 92 122/77 07/19 1930 101 104/72 07/19 1900 84 100/70 07/19 1830 92 108/68 07/19 1759 91 106/68 07/19 1734 101 108/68 07/19 1700 93 108/70 07/19 1630 108 110/70 07/19 1630 88 100/70 07/19 1454 100.6 100 20 110/60 93 Room Air 07/19 1345 100.6 07/19 1246 101.0 Intake & Output 07/20 1600 07/20 0800 07/20 0000 Intake Total 592.7 203 Output Total 200 Balance 392.7 203 Intake, IV 592.7 203 Output, Urine 200 Patient 156 lb Weight Weight Bed scale Measurement Method Physical Exam General Appearance: Alert, Mild Distress Skin: No Rashes, No Breakdown, No Significant Lesion Skin Temp/Moisture Exam: Warm/Dry Sepsis Skin Exam (color): Normal for Ethnicity HEENT: Atraumatic, EOMI, Mucous Membr. moist/pink Cardiovascular: Regular Rate, Normal S1, Normal S2, murmur 3/6 loudest atleft lower sternal border Lungs: Clear to Auscultation, Normal Air Movement Abdomen: Normal Bowel Sounds, Soft, No Tenderness Neurological: Normal Speech Extremities: No Clubbing, No Cyanosis, No Edema, Normal Pulses, No Tenderness/ Swelling Vascular: Normal Pulses, Pulses Symmetrical Current Medications: Current Medications Sig/Karel Start time Last Medication Dose Route Stop Time Status Admin Acetaminophen 1,000 MG Q6P PRN 07/19 1245 AC 07/19 N/A 1 UNIT IV 1246 Acetaminophen 650 MG Q6P PRN 07/17 1745 AC PO Ampicillin Sodium/ 1,500 MG Q6 07/19 1318 AC 07/20 Sulbactam Sodium IV 0534 Sodium Chloride 100 ML Aspirin 300 MG ONCE ONE 07/20 0900 DC 07/20 NM 07/20 0901 1132 Aspirin Buffered 81 MG DAILY 07/17 1750 AC 07/18 PO 0917 Atorvastatin Calcium 40 MG DAILY@1700 07/17 1750 AC PO Atropine Sulfate 1 MG ONCE ONE 07/19 1845 DC IV PUSH 07/19 1846 Atropine Sulfate 1 MG .STK-MED ONE 07/19 1844 DC IM 07/19 1845 Cyanocobalamin 1,000 MCG DAILY 07/17 1750 AC 07/18 PO 0917 Dextrose/Sodium 1,000 ML Q13H 07/19 1300 AC 07/19 Chloride IV 1414 Diltiazem HCl 5 MG ONCE ONE 07/19 1600 DC 07/19 IV PUSH 07/19 1601 1630 Diltiazem HCl 240 MG DAILY 07/17 1751 AC 07/18 PO 0917 Donepezil HCl 5 MG DAILY 07/17 1751 AC 07/18 PO 0917 Folic Acid 1 MG DAILY 07/17 1751 AC 07/18 PO 0917 Heparin Sodium 2,832 UNIT BOLUS ONE 07/20 0300 DC 07/20 (Porcine) IV 07/20 0301 0300 Heparin Sodium 25,000 UNIT Q24H 07/19 1630 AC 07/19 (Porcine) IV 1909 Sodium Chloride 500 ML Heparin Sodium 5,000 UNIT Q8 07/17 2200 DC 07/19 (Porcine) SC 1415 Isosorbide 30 MG DAILY 07/17 175 AC 07/18 Mononitrate PO 0918 Lisinopril 10 MG DAILY 07/17 1751 AC 07/18 PO 0917 Phenytoin 100 MG Q12 07/19 1300 AC 07/20 Sodium Chloride 50 ML IV 1132 Phenytoin 100 MG BID 07/19 1248 CAN IV Phenytoin 100 MG BID 07/17 2100 DC 07/18 PO 0917 Risperidone 0.25 MG 4 TIMES/DAY PRN 07/18 2030 AC PO Last 24 Hrs of Lab/Carlos A Results Last 24 Hrs of Labs/Mics: Laboratory Tests 07/20/17 0819: APTT 82 H 07/20/17 0800: Troponin I Cancelled 07/20/17 0715: Anion Gap 12, Estimated GFR > 60, BUN/Creatinine Ratio 30.0 H, Troponin I 0.86 *H, CBC w Diff NO MAN DIFF REQ, RBC 4.46 L, MCV 87.7, MCH 29.3, MCHC 33.4, RDW 14.6 H, MPV 8.9, Gran % 76.9 H, Lymphocytes % 9.8 L, Monocytes % 13.0 H, Eosinophils % 0.2, Basophils % 0.1, Absolute Granulocytes 8.3 H, Absolute Lymphocytes 1.1 L, Absolute Monocytes 1.4 H, Absolute Eosinophils 0, Absolute Basophils 0 07/20/17 0450: Urinalysis HEAVY H, Urine Color BLDY H, Urine Clarity CLDY H, Urine pH 6.0, Ur Specific [place] >= 1.030, Urine Protein 30 H, Urine Ketones NEG, Urine Nitrite NEG, Urine Bilirubin NEG@ICTO, Urine Urobilinogen 0.2, Ur Leukocyte Esterase NEG, Ur Microscopic SEDIMENT EXAMINED, Urine RBC >75 H, Urine WBC 1-3 H, Ur Epithelial Cells FEW, Urine Mucus FEW, Urine Hemoglobin LARGE H, Urine Glucose NEG 07/20/17 0200: Troponin I 0.62 *H, APTT 53 H 07/19/17 2115: Troponin I 0.37 *H 07/19/17 1918: APTT Cancelled 07/19/17 1551: Virus Culture Pending 07/19/17 1519: Troponin I 0.35 *H Microbiology 07/20 0450 URINE ROUT: Urine Culture - RECD 07/19 191 NASOPHARYN: Influenza Virus A & B Rapid Smear - COMP 07/19 1519 BLOOD: Blood Culture - RECD 07/19 143 URINE ROUT: Legionella Antigen - COMP 07/19 143 URINE ROUT: Streptococcus pneumoniae Antigen (M - COMP 07/19 1426 BLOOD: Blood Culture - RECD Assessment/Plan Assessment: This is a 89 yo male with PMH of Alzheimers dementia, CAD, HTN, HLD, legally blind, seizure d/o, GIB who comes in for CC of somnolence, confusion and urinary incontinence. He also complained of moderate headache, chest pain, and breathing difficulties to his prior to admission. He is admitted to telemetry for evaluation and treatment of the following: PLAN Altered mental status: CT head shows atrophy w/ prominence of ventricles and chronic small vessel disease. Patient does have a history of Alzheimer's dementia. He has had a fever since yesterday and is currently on Unasyn for suspected aspiration pneumonia (see below). * Continue to hold standing Risperdal and hold available when necessary for agitation. * Continued donepezil and patient can tolerate by mouth medications * Neurochecks q6h * Patient is refusing to swallow medications, eating around 25% of his meals. Swallow eval was done and suggested pure and nectar. Patient is cleared to take by mouth meds crushed. Fever: Patient was found to have temperature of 101 orally and 100.6 rectally on 07/19. He was initially started on ceftriaxone as his UA showed blood, nitrites and leukocyte esterase negative though. Ceftriaxone was stopped and Unasyn 1.5 mg every 6h started for presumption of aspiration pneumonia in a patient that is having swallowing difficulties, altered mental status. Chest x- ray was clear. * WBC count 6.3 on admission, 10.8 now. * Repeat chest x-ray today showed superimposed patchy right basilar opacities likely due to atelectatic change but similar to the previous study. * Follow cultures * Tylenol when necessary for fever Chest pain: Pt c/o CP at home. bnp 4320. TSH WNL. Note XRY: Mild central pulmonary vascular congestion with increased lung markings, mild interstitial edema. * Patient was found to have increasing troponins the morning of 07/19 which trended out, most recently 0.86 at 7:15 AM 07/20. Overnight EKG showed isolated ST elevations at V2 and V3 that were not suggestive of STEMI. He was also found yesterday at 1:30 PM to be in a flutter/A. fib (and started on heparin drip and Cardizem, unfortunately the latter was accidentally overdosed). We were unable to assess chest pain at this time as patient was altered. Cardiovascular exam was significant for murmur of aortic stenosis which was present on intake. * Dr. De La Torre, riveter helper, was consulted overnight and suggested close monitoring of the patient especially since he was started on heparin drip for anticoagulation secondary to new onset of A. fib earlier in the day. * Follow up repeat EKG and troponin at 1 PM * Overnight patient was found to have first-degree heart block and a 3 second cause status post overmedication with Cardizem. Patient does have atropine and pacer pads available bedside. * I/O and daily weights * Aspirin NM History of Alzheimer's Dementia * Con't Donepezil when patient able to tolerate by mouth medications * B12 normal, folate normal, TSH normal Moderate / Severe Aortic Stenosis: * Follow-up echocardiogram * Received 20 of IV lasix on 07/18. Will be cautious and administer per clinical status. Coronary Artery Disease/Hypertension/Hyperlipidemia: * Con't outpatient lisinopril 10mg, isosorbide mononitrate, statin, diltiazem, when patient able to tolerate oral medications. For now offered diltiazem and blood pressure control if needed. * Con't ASA rectally Hx seizures * Con't Phenytoin * Level on 07/19 was 3.3 * Con't Folic acid * Fall precautions and neuro checks every 6 hours Incidental finding of Soft tissue density opacifying the frontal sinuses: F/U out pt FC CHEM PPX HH Diet Problem List: 1. Altered mental status 2. CAD (coronary artery disease) 3. Troponin level elevated 4. Fever of unknown origin 5. A-fib 6. Aortic stenosis Pain Ratin Pain Location: na Pain Goal: Remain pain free Pain Plan: na Tomorrow's Labs & Rationales: cbc bep MariamaAlexander cuellar 07/20/17 1440: Attending MD Review Statement Attending Statement Attending MD Statement: examined this patient, discuss w/resident/PA/BELT BACK OPERATOR, agreed w/resident/PA/BELT BACK OPERATOR, discussed with family, reviewed EMR data (avail), discussed with nursing, discussed with case mgmt, reviewed images, amended to note Attending Assessment/Plan: Vitals stable. trop 0.86, Repeat cardiac enzymes and EKG. F/u cardiology, c/w anticoagulation, HR controlled. Obtain repeat chest xray.
--- NOTE | 2017-07-20 11:47 | RADIOLOGY REPORT ---
EXAMINATION: XR PORTABLE CHEST CLINICAL INFORMATION: Shortness of breath. Presumptive diagnosis of aspiration pneumonia. COMPARISON: Several prior chest x-rays, most recent of which is dated 07/19/2017. TECHNIQUE: Portable AP semierect view of the chest was obtained. FINDINGS: EKG leads overlie the chest. The cardiomediastinal silhouette is enlarged, unchanged. Ectasia and tortuosity of the aorta is noted along with bilateral central hilar prominence, unchanged. Indistinct perihilar opacities are seen and trace right-sided pleural effusion is noted in the right minor fissure. There is likely also a trace left-sided pleural effusion and mild central vascular congestion. Patchy bibasilar opacities are again noted, unchanged. No pneumothorax is seen. Bony structures are unremarkable. IMPRESSION: 1. Cardiomegaly, mild pulmonary edema, and trace bilateral pleural effusions. 2. Superimposed patchy bibasilar opacities is seen, likely due to atelectatic change, similar to the previous study.
[2017-07-20 14:39] VITALS: BP 108/60; BP 140/78
--- NOTE | 2017-07-20 14:43 | PN- Cardiology ---
Subjective Subjective: increase in troponins at 0.[address] elevations in V1-V2, hemodynamically stable patients, not complaining of pain. Objective Vital Signs and I&Os Vital Signs Date Time Temp Pulse Resp B/P B/P Pulse O2 O2 Flow FiO2 Mean Ox Delivery Rate 07/20 0715 98.7 81 20 112/58 94 Room Air 07/19 2303 98.8 100 22 118/84 91 07/19 2036 92 122/77 07/19 1930 101 104/72 07/19 1900 84 100/70 07/19 1830 92 108/68 07/19 1759 91 106/68 07/19 1734 101 108/68 07/19 1700 93 108/70 07/19 1630 108 110/70 07/19 1630 88 100/70 07/19 1454 100.6 100 20 110/60 93 Room Air Intake & Output 07/20 1600 07/20 0800 07/20 0000 07/19 1600 07/19 0800 07/19 0000 Intake Total 720 592.7 203 225 60 Output Total 200 300 Balance 720 392.7 203 -75 60 Intake, IV 600 592.7 203 200 Intake, Oral 120 25 60 Number 0 Bowel Movements Output, Urine 200 300 Patient 156 lb 157 lb Weight Weight Bed scale Measurement Method Physical Exam: Well-developed, well-nourished elderly male who is mildly agitated and no acute distress with nasal oxygen in place. Vital signs: See above. HEENT: Normocephalic, atraumatic, EOMI. Mucosa moist and pink. Neck: No JVD. Left CEA scar. Lungs: Decreased breath sounds bilaterally. Heart: S1, S2 (diminished) with grade 2/6 systolic ejection type murmur best heard at the base. No gallop or rub. PMI fifth ICS at [facility]. Abdomen: Soft, nontender, positive bowel sounds. Extremities: No edema. Current Medications: Current Medications Sig/Karel Start time Last Medication Dose Route Stop Time Status Admin Acetaminophen 1,000 MG Q6P PRN 07/19 1245 AC 07/19 N/A 1 UNIT IV 1246 Acetaminophen 650 MG Q6P PRN 07/17 1745 AC PO Ampicillin Sodium/ 1,500 MG Q6 07/19 1318 AC 07/20 Sulbactam Sodium IV 0534 Sodium Chloride 100 ML Aspirin 300 MG ONCE ONE 07/20 0900 DC 07/20 LA 07/20 0901 1132 Aspirin Buffered 81 MG DAILY 07/17 1750 AC 07/18 PO 0917 Atorvastatin Calcium 40 MG DAILY@1700 07/17 1750 AC PO Atropine Sulfate 1 MG ONCE ONE 07/19 1845 DC IV PUSH 07/19 1846 Atropine Sulfate 1 MG .STK-MED ONE 07/19 1844 DC IM 07/19 1845 Cyanocobalamin 1,000 MCG DAILY 07/17 1750 07/18 PO 0917 Dextrose/Sodium 1,000 ML Q13H 07/19 1300 AC 07/19 Chloride IV 1414 Diltiazem HCl 5 MG ONCE ONE 07/19 1600 DC 07/19 IV PUSH 07/19 1601 1630 Diltiazem HCl 240 MG DAILY 07/17 1751 07/18 PO 0917 Docusate Sodium 100 MG DAILY 07/20 1415 AC PO Donepezil HCl 5 MG DAILY 07/17 1751 AC 07/18 PO 0917 Folic Acid 1 MG DAILY 07/17 1751 07/18 PO 0917 Heparin Sodium 2,832 UNIT BOLUS ONE 07/20 0300 DC 07/20 (Porcine) IV 07/20 0301 0300 Heparin Sodium 25,000 UNIT Q24H 07/19 1630 07/19 (Porcine) IV 1909 Sodium Chloride 500 ML Heparin Sodium 5,000 UNIT Q8 07/17 2200 DC 07/19 (Porcine) SC 1415 Isosorbide 30 MG DAILY 07/17 1751 07/18 Mononitrate PO 0918 Lisinopril 10 MG DAILY 07/17 1751 07/18 PO 0917 Phenytoin 100 MG Q12 07/19 1300 07/20 Sodium Chloride 50 ML IV 1132 Polyethylene Glycol 17 GM DAILY 07/20 1415 AC PO Risperidone 0.25 MG 4 TIMES/DAY PRN 07/18 2031 AC PO Senna 187 MG AT BEDTIME 07/20 1415 AC PO Results Last 48 Hrs of Labs/Mics: Laboratory Tests 07/20/17 1345: Troponin I Pending 07/20/17 0819: APTT 82 H 07/20/17 0800: Troponin I Cancelled 07/20/17 0715: Anion Gap 12, Estimated GFR > 60, BUN/Creatinine Ratio 30.0 H, Troponin I 0.86 *H, CBC w Diff NO MAN DIFF REQ, RBC 4.46 L, MCV 87.7, MCH 29.3, MCHC 33.4, RDW 14.6 H, MPV 8.9, Gran % 76.9 H, Lymphocytes % 9.8 L, Monocytes % 13.0 H, Eosinophils % 0.2, Basophils % 0.1, Absolute Granulocytes 8.3 H, Absolute Lymphocytes 1.1 L, Absolute Monocytes 1.4 H, Absolute Eosinophils 0, Absolute Basophils 0 07/20/17 0450: Urinalysis HEAVY H, Urine Color BLDY H, Urine Clarity CLDY H, Urine pH 6.0, Ur Specific [place] >= 1.030, Urine Protein 30 H, Urine Ketones NEG, Urine Nitrite NEG, Urine Bilirubin NEG@ICTO, Urine Urobilinogen 0.2, Ur Leukocyte Esterase NEG, Ur Microscopic SEDIMENT EXAMINED, Urine RBC >75 H, Urine WBC 1-3 H, Ur Epithelial Cells FEW, Urine Mucus FEW, Urine Hemoglobin LARGE H, Urine Glucose NEG 07/20/17 0200: Troponin I 0.62 *H, APTT 53 H 07/19/17 2115: Troponin I 0.37 *H 07/19/17 1918: APTT Cancelled 07/19/17 1551: Virus Culture Pending 07/19/17 1519: Troponin I 0.35 *H 07/19/17 1054: Troponin I 0.13 *H 07/19/17 0645: Anion Gap 15, Estimated GFR > 60, BUN/Creatinine Ratio 26.0 H, Vitamin B12 841, Folate 12.9, TSH 1.010, Total T3 0.74 L, Phenytoin 3.3 L Microbiology 07/19 1912 NASOPHARYN: Influenza Virus A & B Rapid Smear - COMP 07/19 143 URINE ROUT: Legionella Antigen - COMP 07/19 143 URINE ROUT: Streptococcus pneumoniae Antigen (M - COMP Assessment/Plan Assessment/Plan New ACS involving septal territory with troponins rising ad 0.8, and patient hemodynamically stable. Conservative management with heparin drip, asa, add plavix, no bolus given age. i would not change diltiazem for beta-dee dee due to risk of instability during transition. Continue telemetry? Yes Problem List: 1. Alzheimer's dementia with behavioral disturbance 2. Dementia 3. Seizure disorder 4. Aortic stenosis 5. A-fib
[2017-07-20 21:50] LABS: PTT 39 SEC (25-37)
[2017-07-20 22:42] VITALS: BP 130/86
[2017-07-21 06:39] VITALS: BP 140/70
[2017-07-21 08:49] LABS: PTT 85 SEC (25-37)
--- NOTE | 2017-07-21 12:00 | PN- Housestaff ---
Lisa Mandel MD 07/21/17 1200: Subjective Follow-up For: AMS New onset afib Troponin elevation Fever of unknown origin Complaints: no complaints Tele-Events Since Last Visit: Sinus rhythm 71-82 with PVCs and couplets. Subjective: Patient's is noncommunicative and confused. He is alternating between somnolent and somewhat more alert but does not answer questions. Patient does have baseline dementia. Review of Systems Constitutional: Reports: no symptoms. Neurological/Psychological: Reports: cognitive dysfunction, confusion, dementia. Objective Last 24 Hrs of Vital Signs/I&O Vital Signs Date Time Temp Pulse Resp B/P B/P Pulse O2 O2 Flow FiO2 Mean Ox Delivery Rate 07/21 1449 75 140/70 07/21 1449 75 140/70 07/21 1430 99.0 72 20 136/78 94 Nasal 2.0L Cannula 07/21 1326 Nasal 2.0L Cannula 07/21 1126 Nasal 2.0L Cannula 07/21 0639 97.0 75 20 140/70 92 Nasal 2.0L Cannula 07/20 2242 97.3 72 22 130/86 89 07/20 2116 Room Air Intake & Output 07/21 1600 07/21 0800 07/21 0000 Intake Total 550 340 Output Total 150 Balance 400 340 Intake, IV 550 340 Output, Urine 150 Patient 158 lb Weight Physical Exam General Appearance: No Acute Distress Skin: No Rashes, No Breakdown, No Significant Lesion Skin Temp/Moisture Exam: Warm/Dry Sepsis Skin Exam (color): Normal for Ethnicity HEENT: Atraumatic, PERRLA, EOMI, Mucous Membr. moist/pink Neck: Supple, No JVD Cardiovascular: Regular Rate, Normal S1, Normal S2 Lungs: Clear to Auscultation, Normal Air Movement Abdomen: Normal Bowel Sounds, Soft, No Hepatospenomegaly Extremities: No Clubbing, No Cyanosis, No Edema, Normal Pulses, No Tenderness/ Swelling Vascular: Normal Pulses, Pulses Symmetrical Current Medications: Current Medications Sig/Karel Start time Last Medication Dose Route Stop Time Status Admin Acetaminophen 1,000 MG Q6P PRN 07/19 1245 AC 07/19 N/A 1 UNIT IV 1246 Acetaminophen 650 MG Q6P PRN 07/17 1745 AC PO Ampicillin Sodium/ 1,500 MG Q6 07/19 1318 DC 07/21 Sulbactam Sodium IV 0559 Sodium Chloride 100 ML Aspirin Buffered 81 MG DAILY 07/17 1750 07/21 PO 1448 Atorvastatin Calcium 40 MG DAILY@1700 07/17 1750 AC 07/20 PO 1800 Clopidogrel Bisulfate 75 MG DAILY 07/21 0900 AC 07/21 PO 1448 Cyanocobalamin 1,000 MCG DAILY 07/17 175 AC 07/18 PO 0917 Dextrose/Sodium 1,000 ML Q13H 07/19 1300 DC 07/20 Chloride IV 2030 Diltiazem HCl 240 MG DAILY 07/17 175 AC 07/21 PO 1449 Docusate Sodium 100 MG DAILY 07/20 1415 AC PO Donepezil HCl 5 MG DAILY 07/17 175 AC 07/21 PO 1449 Folic Acid 1 MG DAILY 07/17 175 AC 07/18 PO 0917 Heparin Sodium 5,355 UNIT BOLUS ONE 07/21 0030 DC 07/21 (Porcine) IV 07/21 003 0030 Heparin Sodium 25,000 UNIT Q24H 07/19 1630 07/20 (Porcine) IV 1534 Sodium Chloride 500 ML Isosorbide 30 MG DAILY 07/17 175 07/21 Mononitrate PO 1449 Lisinopril 10 MG DAILY 07/17 175 07/21 PO 1449 Phenytoin 100 MG Q12 07/19 1300 AC 07/21 Sodium Chloride 50 ML IV 1027 Polyethylene Glycol 17 GM DAILY 07/20 1415 LA PO Risperidone 0.25 MG 4 TIMES/DAY PRN 07/18 203 PO Senna 187 MG AT BEDTIME 07/20 141 LA 07/20 PO 203 Senna/Docusate Sodium 2 TAB DAILY 07/21 0925 07/21 PO 1448 Last 24 Hrs of Lab/Carlos A Results Last 24 Hrs of Labs/Mics: Laboratory Tests 07/21/17 1520: CBC w Diff NO MAN DIFF REQ, RBC 4.58 L, MCV 86.7, MCH 28.8, MCHC 33.2, RDW 14.5 , MPV 8.9, Gran % 80.3 H, Lymphocytes % 8.3 L, Monocytes % 10.5 H, Eosinophils % 0.6, Basophils % 0.3, Absolute Granulocytes 8.9 H, Absolute Lymphocytes 0.9 L, Absolute Monocytes 1.2 H, Absolute Eosinophils 0.1, Absolute Basophils 0 07/21/17 0642: APTT 85 H 07/20/17 2030: APTT 39 H Assessment/Plan Assessment: This is a 89 yo male with PMH of Alzheimers dementia, CAD, HTN, HLD, legally blind, seizure d/o, GIB who comes in for CC of somnolence, confusion and urinary incontinence. He also complained of moderate headache, chest pain, and breathing difficulties to his prior to admission. PLAN Altered mental status: CT head shows atrophy w/ prominence of ventricles and chronic small vessel disease. Patient does have a history of Alzheimer's dementia. He has had a fever since yesterday and is currently on Unasyn for suspected aspiration pneumonia (see below). * Continue to hold standing Risperdal and hold available when necessary for agitation. * Continued donepezil and patient can tolerate by mouth medications * Neurochecks q6h * Patient is refusing to swallow medications, eating around 25% of his meals. Swallow eval was done and suggested pure and nectar. Patient is cleared to take by mouth meds crushed. Of note Cardizem cannot be crushed. Fever: Patient was found to have temperature of 101 orally and 100.6 rectally on 07/19. Currently in his afebrile. He was initially started on ceftriaxone as his UA showed blood, nitrites and leukocyte esterase negative though. Ceftriaxone was stopped and Unasyn 1.5 mg every 6h started for presumption of aspiration pneumonia in a patient that is having swallowing difficulties, altered mental status. Chest x-ray was clear. * Discontinue Unasyn * WBC count 6.3 on admission, 11.0 now * Repeat chest x-ray yesterday showed superimposed patchy right basilar opacities likely due to atelectatic change but similar to the previous study. * Follow cultures which will most likely stay negative as they were taken after patient was dosed ceftriaxone. * Tylenol when necessary for fever Chest pain: Pt c/o CP at home. bnp 4320. TSH WNL. Note XRY: Mild central pulmonary vascular congestion with increased lung markings, mild interstitial edema. * Patient was found to have increasing troponins the morning of 07/19 which trended out, most recently 0.86 at 7:15 AM 07/20 and then fell to 0.76. EKG showed concave ST elevations in V1-V2, hemodynamically stable patient repeat EKG unchanged. He was also found to be in a flutter/A. fib (and started on heparin drip and Cardizem, unfortunately the latter was accidentally overdosed). We were unable to assess chest pain at this time as patient was altered. Cardiovascular exam was significant for murmur of aortic stenosis which was present on intake. * Dr. De La Torre, criminal justice lawyer, was consulted and suggested close monitoring of the patient especially since he was started on heparin drip for anticoagulation secondary to new onset of A. fib. As per cardiology we also added Plavix to the regimen. * Patient's outpatient medication regimen contains Cardizem 240 daily but with his altered mental status, he was not taking this medication reliably prior to admission as well as during this admission. It is at this time that the patient experienced the new onset A. fib. * Patient was found to have first-degree heart block and a 3 second cause status post overmedication with IV Cardizem push. Patient does have atropine and pacer pads available bedside but heart rate and rhythm was stable last night. * I/O and daily weights History of Alzheimer's Dementia * Con't Donepezil when patient able to tolerate by mouth medications * B12 normal, folate normal, TSH normal * Patient has been bedbound for this hospitalization and we will attempt physical therapy for discharge planning. Hematuria * Patient had evidence of RBCs in the way on admission but now is gross. We will do a 6 PM CBC. Patient is on Plavix and heparin drip. Moderate / Severe Aortic Stenosis: * Follow-up echocardiogram * Received 20 of IV lasix on 07/18. Will be cautious and administer per clinical status. Constipation * Senna, Dulcolax * To not give MiraLAX as it begins at the liquids and he requires thick liquids. Coronary Artery Disease/Hypertension/Hyperlipidemia: * Con't outpatient lisinopril 10mg, isosorbide mononitrate, statin, diltiazem, when patient able to tolerate oral medications. For now offered diltiazem and blood pressure control if needed. * Patient is on Cardizem outpatient and refused to swallow the medication yesterday, did successfully take the medication today so we will continue. * Con't ASA Hx seizures * Con't Phenytoin * Level on 07/19 was 3.3 * Con't Folic acid * Fall precautions and neuro checks every 6 hours Incidental finding of Soft tissue density opacifying the frontal sinuses: F/U out pt FC CHEM PPX HH Diet Problem List: 1. Troponin level elevated 2. Fever of unknown origin 3. A-fib 4. Aortic stenosis 5. Seizure disorder 6. History of TIA (transient ischemic attack) 7. Dementia 8. Altered mental status Pain Ratin Pain Location: na Pain Goal: Remain pain free Pain Plan: na Tomorrow's Labs & Rationales: cbc bep Alexander Leslie 07/21/17 1321: Attending MD Review Statement Attending Statement Attending MD Statement: examined this patient, discuss w/resident/PA/LINEN ROOM HOUSEPERSON, agreed w/resident/PA/LINEN ROOM HOUSEPERSON, discussed with family, reviewed EMR data (avail), discussed with nursing, discussed with case mgmt, reviewed images, amended to note Attending Assessment/Plan: Patient seen/examined bedside. Patient is calm, no chest pain. Patient chest xray f/u mild interstitial edema. Patient is found to have new onset afib which is rate controlled. His cardiac enzymes were elevated now trending down type 1 vs type 2 [place], asa/plavix/anticoagulation as per cardiology. Patient has been afebrile , will discontinue antibtiloics and follow off abx. F/u cardiology for NOAC. Patient has advanced dementia. Goals of care discussion with .
[2017-07-21 14:30] VITALS: BP 136/78
[2017-07-21 15:53] LABS: ABSOLUTE BASOPHIL COUNT 0 /CUMM (0.0-0.2); ABSOLUTE EOSINOPHIL COUNT 0.1 /CUMM (0.0-0.7); ABSOLUTE GRANULOCYTE CT 8.9 /CUMM (1.4-6.5); ABSOLUTE LYMPH COUNT 0.9 /CUMM (1.2-3.4); ABSOLUTE MONOCYTE COUNT 1.2 /CUMM (0.10-0.60); BASOPHIL % 0.3 % (0.0-2.0); EOSINOPHIL % 0.6 % (0-5); GRANULOCYTE % 80.3 % (42.2-75.2); HEMATOCRIT 39.7 % (42-52); MEAN CORPUSCULAR HGB 28.8 PG (27.0-31.0); MEAN CORPUSCULAR HGB CONC 33.2 G/DL (33.0-37.0); MEAN CORPUSCULAR VOLUME 86.7 FL (80.0-94.0); MEAN PLATELET VOLUME 8.9 FL (7.4-10.4); PLATELET COUNT 206 /CUMM (130-400); RBC DISTRIBUTION WIDTH 14.5 % (11.5-14.5); RED BLOOD CELL CT 4.58 /CUMM (4.70-6.10)
--- NOTE | 2017-07-21 17:28 | ECHOCARDIOGRAM REPORT ---
TEE PARISI Age: 89 : 1925 Gender: M Exam Date: 07/20/2017 16:34 Exam Location: [address] Ht (in): 65 Wt (lb): 156 BSA: 1.82 BP: 112 / 58 Ordering Physician: Mariluz Garcia MD Referring Physician: Williams De La Torre MD Technologist: Noemy Roa [facility] Room Number: [id number] Indications: CHEST PAIN Rhythm: Sinus Technical Quality: Fair FINDINGS Left Ventricle Normal size left ventricle. Mild to moderate concentric left ventricular hypertrophy. Distal septal, lateral, and inferior hypokinesis. Apical akinesis. [place] not well visualized, cannot exclude apical thrombus. Mildly abnormal left ventricular ejection fraction estimated at 35%. Moderately increased left ventricular outflow tract velocity (1.7 m/s). Right Ventricle Normal right ventricular size and function. Right Atrium Normal right atrial size. Left Atrium Moderate left atrial dilatation. Mitral Valve Mild to moderate mitral annular calcification. Mitral valve thickened. Mild mitral regurgitation. Aortic Valve Trileaflet aortic valve. Diffuse thickening of the aortic valve cusps with reduced excursion. Moderate aortic stenosis. Trace aortic regurgitation. Tricuspid Valve Structurally normal tricuspid valve. Trace tricuspid regurgitation. Moderate pulmonary hypertension. Right ventricular systolic pressure estimated to be elevated at 48 mmHg. Pulmonic Valve Pulmonic valve not well visualized, grossly normal. Mild pulmonic regurgitation. Pericardium No pericardial effusion. Great Vessels Normal size aortic root. CONCLUSIONS Normal size left ventricle. Mild to moderate concentric left ventricular hypertrophy. Distal septal, lateral, and inferior hypokinesis. Apical akinesis. Mildly abnormal left ventricular ejection fraction estimated at 45- 50%. Moderately increased left ventricular outflow tract velocity (1.7 m/s). Normal right ventricular size and function. Normal right atrial size. Moderate left atrial dilatation. Mild mitral regurgitation. Moderate aortic stenosis. Trace aortic regurgitation. Trace tricuspid regurgitation. Moderate pulmonary hypertension. Mild pulmonic regurgitation. Williams De La Torre M.D. (Electronically Signed) Final Date: 21 July 2017 17:27 MEASUREMENTS (Male / Female) Normal Values 2D ECHO LV Diastolic Diameter PLAX 4.7 cm 4.2 - 5.9 / 3.9 - 5.3 cm LV Systolic Diameter PLAX 3.6 cm 2.1 - 4.0 cm LV Fractional Shortening PLAX 23.4 % 25 - 46 % LV Ejection Fraction 2D Teich 46.8 % IVS Diastolic Thickness 1.4 cm LVPW Diastolic Thickness 1.3 cm LV Relative Wall Thickness 0.6 RV Internal Dim ED PLAX 3.3 cm 1.9 - 3.8 cm LVOT Diameter 1.9 cm Aortic Root Diameter 2.7 cm LA Systolic Diameter LX 4.8 cm 3.0 - 4.0 / 2.7 - 3.8 cm LA Volume 67.0 cm 18 - 58 / 22 - 52 cm Ascending Aorta Diameter 3.3 cm DOPPLER AV Peak Velocity 329.0 cm/s AV Peak Gradient 43.3 mmHg AV Mean Velocity 255.0 cm/s AV Mean Gradient 29.0 mmHg AV Velocity Time Integral 76.0 cm LVOT Peak Velocity 170.0 cm/s LVOT Peak Gradient 11.6 mmHg LVOT Mean Velocity 115.0 cm/s LVOT Mean Gradient 6.0 mmHg LVOT Velocity Time Integral 36.2 cm LVOT Stroke Volume 102.6 cm AV Area Cont Eq vti 1.4 cm AV Area Cont Eq pk 1.5 cm MV Peak Velocity 140.0 cm/s MV Peak Gradient 7.8 mmHg MV Mean Velocity 70.0 cm/s MV Mean Gradient 2.0 mmHg Mitral E Point Velocity 133.0 cm/s Mitral A Point Velocity 65.4 cm/s Mitral E to A Ratio 2.0 MV PHT Velocity 144.0 cm/s MV Deceleration [place] 486.0 cm/s MV Pressure Half Time 88.9 ms MV Area PHT 2.5 cm MV Deceleration Time 153.0 ms TR Peak Velocity 306.0 cm/s TR Peak Gradient 37.5 mmHg Right Atrial Pressure 10.0 mmHg Pulmonary Artery Systolic Pressu 47.5 mmHg Right Ventricular Systolic Press 47.5 mmHg PV Peak Velocity 207.0 cm/s PV Peak Gradient 17.1 mmHg PV Mean Velocity 116.0 cm/s PV Mean Gradient 7.0 mmHg PV Velocity Time Integral 31.5 cm LV E' Lateral Velocity 4.0 cm/s Mitral E to LV E' Lateral Ratio 33.3 LV E' Septal Velocity 5.1 cm/s Mitral E to LV E' Septal Ratio 26.2
[2017-07-21 20:54] LABS: PTT 58 SEC (25-37)
[2017-07-21 21:36] VITALS: BP 100/50
[2017-07-22 05:03] LABS: PTT 77 SEC (25-37)
[2017-07-22 06:39] VITALS: BP 130/70
--- NOTE | 2017-07-22 07:48 | PN- Housestaff ---
Ministerio GRIFFIN,Lisa 07/22/17 0748: Subjective Follow-up For: AMS New onset afib Troponin elevation Hematuria Complaints: no complaints Tele-Events Since Last Visit: A flutter rate 82-110 PVCs Subjective: Patient has seen mental status as before, remains confused. Patient continues to have more hematuria. Review of Systems Constitutional: Reports: no symptoms. EENTM: Reports: no symptoms. Cardiovascular: Reports: no symptoms. Respiratory: Reports: short of breath. Gastrointestinal: Reports: no symptoms. Genitourinary: Reports: hematuria. Musculoskeletal: Reports: no symptoms. Neurological/Psychological: Reports: cognitive dysfunction, confusion, dementia. Objective Last 24 Hrs of Vital Signs/I&O Vital Signs Date Time Temp Pulse Resp B/P B/P Pulse O2 O2 Flow FiO2 Mean Ox Delivery Rate 07/22 1506 98.9 72 20 120/72 96 Nasal 1.0L Cannula 07/22 1102 84 102/50 07/22 1101 84 102/50 07/22 0800 90 Nasal 2.0L Cannula 07/22 0639 98.6 87 20 130/70 90 Room Air 07/22 0000 92 Nasal 2.0L Cannula 07/21 2136 99.1 87 18 100/50 92 07/21 1600 92 Nasal 2.0L Cannula Intake & Output 07/22 1600 07/22 0800 07/22 0000 Intake Total 535.2 295.2 320 Output Total 200 Balance 335.2 295.2 320 Intake, IV 295.2 295.2 Intake, Oral 240 320 Output, Urine 200 Patient 161 lb Weight Weight Bed scale Measurement Method Physical Exam General Appearance: Alert, No Acute Distress Skin: No Rashes, No Breakdown, No Significant Lesion Sepsis Skin Exam (color): Normal for Ethnicity HEENT: Atraumatic, PERRLA, EOMI, Mucous Membr. moist/pink Cardiovascular: Regular Rate, Normal S1, Normal S2 Lungs: Clear to Auscultation, Normal Air Movement Abdomen: Normal Bowel Sounds, Soft, No Tenderness, No Hepatospenomegaly Extremities: No Clubbing, No Cyanosis Assessment/Plan Assessment: Assessment: This is a 89 yo male with PMH of Alzheimers dementia, CAD, HTN, HLD, legally blind, seizure d/o, GIB who comes in for CC of somnolence, confusion and urinary incontinence. He also complained of moderate headache, chest pain, and breathing difficulties to his prior to admission. PLAN Altered mental status: CT head shows atrophy w/ prominence of ventricles and chronic small vessel disease. Patient does have a history of Alzheimer's dementia. He has had a fever since yesterday and is currently on Unasyn for suspected aspiration pneumonia (see below). * Continue to hold standing Risperdal and hold available when necessary for agitation. * Continued donepezil and patient can tolerate by mouth medications * Neurochecks q6h * Patient is refusing to swallow medications, eating around 25% of his meals. Swallow eval was done and suggested pure and nectar. Patient is cleared to take by mouth meds crushed. Of note Cardizem cannot be crushed. Fever: Patient was found to have temperature of 101 orally and 100.6 rectally on 07/19. Currently in his afebrile. He was initially started on ceftriaxone as his UA showed blood, nitrites and leukocyte esterase negative though. Ceftriaxone was stopped and Unasyn 1.5 mg every 6h started for presumption of aspiration pneumonia in a patient that is having swallowing difficulties, altered mental status. Chest x-ray was clear. * Continue to follow off antibiotics * WBC count 6.3 on admission, 11.0 now * Repeat chest x-ray yesterday showed superimposed patchy right basilar opacities likely due to atelectatic change but similar to the previous study. * Follow cultures which will most likely stay negative as they were taken after patient was dosed ceftriaxone. * Tylenol when necessary for fever if it reappears Chest pain: Pt c/o CP at home. bnp 4320. TSH WNL. Note XRY: Mild central pulmonary vascular congestion with increased lung markings, mild interstitial edema. * Patient was found to have increasing troponins the morning of 07/19 which trended down, most recently 0.86 at 7:15 AM 07/20 and then fell to 0.76. EKG showed concave ST elevations in V1-V2, hemodynamically stable patient repeat EKG unchanged, suggest new ACS Type I [place] septal territory. He was also found to be in a flutter/A. fib (and started on heparin drip and Cardizem, unfortunately the latter was accidentally overdosed) prior to this. We were unable to assess chest pain at this time as patient was altered mentally. Cardiovascular exam was significant for murmur of aortic stenosis which was present on intake. * Dr. De La Torre, plane captain, was consulted and suggested close monitoring of the patient especially since he was started on heparin drip for anticoagulation secondary to new onset of A. fib. As per cardiology we also added Plavix to the regimen. We will stop heparin after 48 hours (at 4 PM) today. * Patient's outpatient medication regimen contains Cardizem 240 daily but with his altered mental status, he was not taking this medication reliably prior to admission as well as during this admission. It is at this time that the patient experienced the new onset A. fib. Patient has been continued on his Cardizem because he is eating now but he has taken to chewing on his Cardizem extended release capsules so we will convert his Cardizem dosing to 30 mg every 6 tablets. * Patient was found to have first-degree heart block and a 3 second cause status post overmedication with IV Cardizem push. Patient does have atropine and pacer pads available bedside but heart rate and rhythm was stable last night. * I/O and daily weights History of Alzheimer's Dementia * Con't Donepezil when patient able to tolerate by mouth medications * B12 normal, folate normal, TSH normal * Patient has been bedbound for this hospitalization and we will attempt physical therapy for discharge planning. Hematuria * Patient had evidence of RBCs in the way on admission but now is gross. Hemoglobin stable around 13. Patient is on Plavix and heparin drip. Acute on chronic systolic congestive heart failure and moderate / severe Aortic Stenosis: * Patient has clear chest on auscultation but required increasing oxygen overnight. We will dose 20 mg of IV Lasix today. Chest x-ray shows increasing vascular congestion. At time of discharge, we will discharge him on 20 mg by mouth Lasix. * Echocardiogram shows multisegmental hypokinesis, moderate pulmonary hypertension, moderate aortic stenosis, moderate left atrial dilatation with an ejection fraction of 35-45%. * Received 20 of IV lasix on 07/18. Will be cautious contrary to his aortic stenosis and administer cautiously. Constipation * Senna, Dulcolax * Do not give MiraLAX as it begins at the liquids and he requires thick liquids. Coronary Artery Disease/Hypertension/Hyperlipidemia: * Con't outpatient lisinopril 10mg, isosorbide mononitrate, statin, diltiazem, when patient able to tolerate oral medications. For now offered diltiazem and blood pressure control if needed. * Patient is on Cardizem outpatient and refused to swallow the medication yesterday, did successfully take the medication today so we will continue. * Con't ASA Hx seizures * Con't Phenytoin convert to oral * Con't Folic acid * Fall precautions and neuro checks every 6 hours Incidental finding of Soft tissue density opacifying the frontal sinuses: F/U out pt Disposition * PT is suggesting short-term rehabilitation but the patient may require longer term rehabilitation. * Patient used to care for his but at this point it is clear that he most likely will not be able to care for her so goals of care must be addressed. FC CHEM PPX HH Diet Problem List: 1. Troponin level elevated 2. A-fib 3. CHF (congestive heart failure) 4. HTN (hypertension) 5. HLD (hyperlipidemia) Pain Ratin Pain Location: na Pain Goal: Remain pain free Pain Plan: na Tomorrow's Labs & Rationales: cbc bep Alexander Leslie 07/22/17 1139: Attending MD Review Statement Attending Statement Attending MD Statement: examined this patient, discuss w/resident/PA/COFFEE SOMMELIER, agreed w/resident/PA/COFFEE SOMMELIER, discussed with family, reviewed EMR data (avail), discussed with nursing, discussed with case mgmt, reviewed images, amended to note Attending Assessment/Plan: Patient seen/examined bedside. Patient is calm, no chest pain. Patient chest xray with mild worsening of interstitial edema. ECHO with reduced EF 35% with diffuse hypokinesia. Acute on chronic Systolic heart failure. Lasix 1v 20 mg daily, DALE inhibitor. Aortic stenosis moderate. New onset afib rate controlled on cardizem. Transition from heparin to NOAC as per cardiology. His cardiac enzymes were elevated now trended down likely type 2 [place], asa/plavix/ anticoagulation as per cardiology. F/u cardiology for NOAC. Patient has advanced dementia. Goals of care discussion with /family, Arrange family meeting.
[2017-07-22 08:20] LABS: ABSOLUTE BASOPHIL COUNT 0 /CUMM (0.0-0.2); ABSOLUTE EOSINOPHIL COUNT 0.3 /CUMM (0.0-0.7); ABSOLUTE GRANULOCYTE CT 6.1 /CUMM (1.4-6.5); ABSOLUTE LYMPH COUNT 0.9 /CUMM (1.2-3.4); ABSOLUTE MONOCYTE COUNT 0.8 /CUMM (0.10-0.60); BASOPHIL % 0.3 % (0.0-2.0); EOSINOPHIL % 3.2 % (0-5); HEMATOCRIT 39.1 % (42-52); MEAN CORPUSCULAR HGB 29.1 PG (27.0-31.0); MEAN CORPUSCULAR HGB CONC 33.5 G/DL (33.0-37.0); MEAN CORPUSCULAR VOLUME 86.7 FL (80.0-94.0); MEAN PLATELET VOLUME 8.7 FL (7.4-10.4); PLATELET COUNT 198 /CUMM (130-400); RBC DISTRIBUTION WIDTH 13.9 % (11.5-14.5); RED BLOOD CELL CT 4.51 /CUMM (4.70-6.10); WHITE BLOOD CELL COUNT 8.1 /CUMM (4.8-10.8)
[2017-07-22 09:27] LABS: PTT 30 SEC (25-37)
--- NOTE | 2017-07-22 10:42 | RADIOLOGY REPORT ---
EXAMINATION: XR PORTABLE CHEST CLINICAL INFORMATION: Shortness of breath and low O2 saturation. Assess for pneumonia or fluid overload. COMPARISON: Multiple prior studies, the most recent x-ray 07/20/2017. TECHNIQUE: Portable AP erect view of the chest was obtained. FINDINGS: The study redemonstrates prominence of the cardiac silhouette, increased compared to the prior study. There is unfolding of the aortic arch and the ascending artery appears ectatic. There is mild interval increase in the central pulmonary vasculature. There are increased areas of opacification in the lower zones bilaterally, increased compared to the prior study and more extensive on the left. There is a moderate left-sided pleural effusion. There is a small right pleural effusion. No pneumothoraces are seen. There are no acute osseous findings. 2 special forces engineer sergeant leads overlie the chest. IMPRESSION: 1. There has been slight interval increase in the size of the cardiac silhouette and central pulmonary vasculature. There is also increase in the left greater than right lower zone opacifications and in the left pleural effusion. The findings are consistent with worsening congestive heart failure although fluid overload may also have this appearance. 2. Underlying consolidative changes at the bases cannot be excluded.
--- NOTE | 2017-07-22 14:13 | Discharge Summary ---
See Addendum Visit Information Visit Dates Admission Date: 07/17/17 Discharge Date: 07/25/2017 Hospital Course Course Attending Physician: Alexander Leslie MD Primary Care Physician: Uday Marina MD Hospital Course: 89-year-old man with past medical history of Alzheimer's dementia, coronary artery disease, hypertension, hyperlipidemia, seizure disorder for 30+ years, gastrointestinal bleed, and mild blindness brought in by ambulance for evaluation of confusion and urinary incontinence.marylu reportedly was found in his bed around noontime and reportedly never sleeps that late. He ate lunch and shortly thereafter complained of a moderate headache and that he "can't breathe ". Patient's gave him a tablet of nitroglycerin for some mild" chest pain ". For further evaluation the symptoms EMS was called and patient was brought to the [place] ED for evaluation. Patient was previously admitted to [facility] from 11/30/15-12/05/15 for altered mental status thought to be secondary to medications (baclofen, tramadol ). These medications were discontinued and patient was started on risperidone and instructed to follow-up with geriatric psychiatrist as an outpatient which she reportedly failed to do. Admisison Labs and Physical Exam: Physical Exam General Appearance Alert, Cooperative, No Acute Distress, AAOx1 Skin No Rashes, No Breakdown, No Significant Lesion Skin Temp/Moisture Exam: Warm/Dry Sepsis Skin Exam (color): Normal for Ethnicity HEENT Atraumatic, PERRLA, EOMI, Mucous Membr. moist/pink Neck Supple, No JVD Cardiovascular Regular Rate, 3/6 AMADOR in aortic area with late s2 Lungs Clear to Auscultation, Normal Air Movement Abdomen Normal Bowel Sounds, Soft, No Tenderness, No Hepatospenomegaly, No Masses Neurological Normal Speech, Strength at 5/5 X4 Ext, Normal Tone, Sensation Intact, Cranial Nerves 3-12 NL, Gait not assessed, speech fluent, coordination intact Extremities No Clubbing, No Cyanosis, No Edema, Normal Pulses, No Tenderness/ Swelling Vascular Normal Pulses, Pulses Symmetrical Last 24 Hrs of Labs/Carlos A: Laboratory Tests 07/17/17 1408: Anion Gap 15, Estimated GFR > 60, BUN/Creatinine Ratio 19.0, Glucose 183 H, Calcium 9.4, Total Bilirubin 0.5, AST 17, ALT 32, Alkaline Phosphatase 114, Creatine Kinase 46 L, Troponin I 0.02, Zzb-F-Kbucyollvag Pept Pending, Total Protein 6.5, Albumin 3.8, Globulin 2.7, Albumin/Globulin Ratio 1.4, TSH &T3 & Free T4 Intrp Pending, PT 12.8 H, INR 1.17, CBC w Diff NO MAN DIFF REQ, RBC 4.52 L, MCV 87.5, MCH 28.8, MCHC 32.9 L, RDW 14.6 H, MPV 7.9, Gran % 73.0, Lymphocytes % 14.6 L, Monocytes % 8.0, Eosinophils % 4.0, Basophils % 0.4, Absolute Granulocytes 4.6, Absolute Lymphocytes 0.9 L, Absolute Monocytes 0.5, Absolute Eosinophils 0.3, Absolute Basophils 0 Problem list Altered mental status: CT head shows atrophy w/ prominence of ventricles and chronic small vessel disease. Patient does have a history of Alzheimer's dementia. He has had a fever since yesterday and is currently on Unasyn for suspected aspiration pneumonia (see below). * Continue to hold standing Risperdal and hold available when necessary for agitation. * Continued donepezil and patient can tolerate by mouth medications * Neurochecks q6h * Patient is refusing to swallow medications, eating around 25% of his meals. Swallow eval was done and suggested pure and nectar. Patient is cleared to take by mouth meds crushed. Of note Cardizem cannot be crushed. Fever: RESOLVED. Pt had temperature of 101 orally and 100.6 rectally on 07/19. Treated for presumed aspiration PNA with Unasyn. Currently afebrile with no leukocytosis. Chest pain: Pt c/o CP at home. bnp 4320. TSH WNL. Note XRY: Mild central pulmonary vascular congestion with increased lung markings, mild interstitial edema. Patient was found to have increasing troponins the morning of 07/19. Peak at 0.86EKG showed concave ST elevations in V1-V2, hemodynamically stable patient repeat EKG unchanged, suggest new ACS septal territory yet morphology of ST elevations not completely characteristic. He was also found to be in a flutter/ A. fib prior to this. * Dr. De La Torre, first dyer, was consulted and he was started on heparin drip for anticoagulation secondary to new onset of A. fib and ACS. started on ASA, Statin and plavix. Not a good candidate for catheterization. * Need to follow up with first dyer for duation of DAPT * Outpatient work up per first dyer Afib: In hospital pt went into afib with RVR. Patient's outpatient medication regimen contains Cardizem 240 daily but with his altered mental status, he was not taking this medication reliably. He is not a good candidate for AC given frequent falls and high HASBLED score. * convert his Cardizem dosing to 30 mg every 6 tablets as pt was chewing his ER cardizem * Follow up with first dyer. History of Alzheimer's Dementia, on Donepezil * Con't Donepezil when patient able to tolerate by mouth medications * B12 normal, folate normal, TSH normal * Patient has been bedbound for this hospitalization and we will attempt physical therapy for discharge planning.-Moderate / Severa Aortic Stenosis Acute on chronic systolic congestive heart failure and moderate / severe Aortic Stenosis: * Continue him on 10mg lisinopril po daily. * Echocardiogram shows multisegmental hypokinesis, moderate pulmonary hypertension, moderate aortic stenosis, moderate left atrial dilatation with an ejection fraction of 35-45%. * Caution with lasix secondary to his aortic stenosis and administer cautiously. Coronary Artery Disease/Hypertension/Hyperlipidemia: * Con't outpatient lisinopril 10mg, isosorbide mononitrate, statin, diltiazem, when patient able to tolerate oral medications. For now offered diltiazem and blood pressure control if needed. * Con't ASA History of GI Bleed * PPI Hx seizures * Con't Phenytoin * Con't Folic acid * Fall precautions and neuro checks every 6 hours Incidental finding of Soft tissue density opacifying the frontal sinuses: F/U out pt Allergies: Coded Allergies: adhesive (UNKNOWN 12/05/15) Pertinent Lab Results: Laboratory Tests 07/24 07/23 0645 0719 Chemistry Sodium (137 - 145 mmol/L) 147 H 146 H Potassium (3.5 - 5.1 mmol/L) 4.2 4.1 Chloride (98 - 107 mmol/L) 109 H 108 H Carbon Dioxide (22 - 30 mmol/L) 26 25 Anion Gap (5 - 16) 12 13 BUN (9 - 20 mg/dL) 21 H 23 H Creatinine (0.7 - 1.2 mg/dL) 0.7 0.8 Estimated GFR (>60 ml/min) > 60 > 60 BUN/Creatinine Ratio (7 - 25 %) 30.0 H 28.8 H Coagulation APTT (25 - 37 SEC) 32 Hematology CBC w Diff NO MAN DIFF REQ NO MAN DIFF REQ WBC (4.8 - 10.8 /CUMM) 10.6 7.7 RBC (4.70 - 6.10 /CUMM) 4.47 L 4.33 L Hgb (14.0 - 18.0 G/DL) 13.1 L 12.7 L Hct (42 - 52 %) 38.7 L 37.8 L MCV (80.0 - 94.0 FL) 86.6 87.3 MCH (27.0 - 31.0 PG) 29.4 29.3 MCHC (33.0 - 37.0 G/DL) 33.9 33.6 RDW (11.5 - 14.5 %) 14.5 14.3 Plt Count (130 - 400 /CUMM) 224 204 MPV (7.4 - 10.4 FL) 8.5 8.7 Gran % (42.2 - 75.2 %) 82.2 H 73.6 Lymphocytes % (20.5 - 51.1 %) 8.3 L 13.1 L Monocytes % (1.7 - 9.3 %) 7.8 9.6 H Eosinophils % (0 - 5 %) 1.5 3.4 Basophils % (0.0 - 2.0 %) 0.2 0.3 Absolute Granulocytes (1.4 - 6.5 /CUMM) 8.7 H 5.6 Absolute Lymphocytes (1.2 - 3.4 /CUMM) 0.9 L 1.0 L Absolute Monocytes (0.10 - 0.60 /CUMM) 0.8 H 0.7 H Absolute Eosinophils (0.0 - 0.7 /CUMM) 0.2 0.3 Absolute Basophils (0.0 - 0.2 /CUMM) 0 0 07/22 07/22 07/22 07/21 0815 1890 0320 1940 Chemistry Sodium (137 - 145 mmol/L) 145 Potassium (3.5 - 5.1 mmol/L) 3.8 Chloride (98 - 107 mmol/L) 108 H Carbon Dioxide (22 - 30 mmol/L) 24 Anion Gap (5 - 16) 13 BUN (9 - 20 mg/dL) 22 H Creatinine (0.7 - 1.2 mg/dL) 0.8 Estimated GFR (>60 ml/min) > 60 BUN/Creatinine Ratio (7 - 25 %) 27.5 H Coagulation APTT (25 - 37 SEC) 30 77 H 58 H Hematology CBC w Diff NO MAN DIFF REQ WBC (4.8 - 10.8 /CUMM) 8.1 RBC (4.70 - 6.10 /CUMM) 4.51 L Hgb (14.0 - 18.0 G/DL) 13.1 L Hct (42 - 52 %) 39.1 L MCV (80.0 - 94.0 FL) 86.7 MCH (27.0 - 31.0 PG) 29.1 MCHC (33.0 - 37.0 G/DL) 33.5 RDW (11.5 - 14.5 %) 13.9 Plt Count (130 - 400 /CUMM) 198 MPV (7.4 - 10.4 FL) 8.7 Gran % (42.2 - 75.2 %) 75.0 Lymphocytes % (20.5 - 51.1 %) 11.1 L Monocytes % (1.7 - 9.3 %) 10.4 H Eosinophils % (0 - 5 %) 3.2 Basophils % (0.0 - 2.0 %) 0.3 Absolute Granulocytes (1.4 - 6.5 /CUMM) 6.1 Absolute Lymphocytes (1.2 - 3.4 /CUMM) 0.9 L Absolute Monocytes (0.10 - 0.60 /CUMM) 0.8 H Absolute Eosinophils (0.0 - 0.7 /CUMM) 0.3 Absolute Basophils (0.0 - 0.2 /CUMM) 0 Disposition Summary Disposition Principal Diagnosis: dementia Additional Diagnosis: afib Discharge Disposition: SNF Discharge Instructions General Discharge Information Code Status: Full Code Patient's Diet: puree and nectar thick diet Patient's Activity: as tolerated Follow-Up Instructions/Appts: see above Medications at Discharge Discharge Medications: Stop taking the following medications: Diltiazem HCl (Diltiazem 24HR ER) 240 MG CAP.ER.24H ORAL DAILY Qty = 30 Risperidone (Risperdal) 0.25 MG TABLET ORAL 4 TIMES A DAY Qty = 360 Continue taking these medications: Lisinopril (Lisinopril) 10 MG TABLET 1 Tablet ORAL DAILY Qty = 90 Comments: Last Taken: 12/05/15 Time: 9:00 AM Donepezil HCl (Donepezil HCl) 5 MG TABLET 1 Tablet ORAL DAILY Qty = 30 Comments: Last Taken: 12/05/15 Time: 9:00 AM Phenytoin Sodium Extended (Phenytoin Sodium Extended) 100 MG CAPSULE 1 Capsule ORAL TWICE DAILY Qty = 60 Comments: Last Taken: 12/05/15 Time: 9:00 AM Atorvastatin Calcium (Atorvastatin Calcium) 40 MG TABLET 1 Tablet ORAL DAILY Qty = 90 Comments: Last Taken: 12/05/15 Time: 9:00 AM Isosorbide Mononitrate (Isosorbide Mononitrate ER) 30 MG TAB.ER.24H 1 Tablet ORAL DAILY Qty = 30 Comments: NOT GIVEN IN HOSPITAL Nitroglycerin (Nitrostat) (Unknown Strength) TAB.SUBL 0.3 Milligram SUBLINGUAL As Directed as needed for HEART Days = 30 Instructions: 1st sign of attack; may repeat every 5 minutes until relief; if pain persists after 3 tablets in 15 minutes, prompt medical att Comments: NOT GIVEN IN HOSPITAL Aspirin (Ecotrin*) 81 MG TABLET.DR 1 Tablet ORAL DAILY Folic Acid (Folic Acid) 1 MG TABLET 1 Tablet ORAL DAILY Cyanocobalamin (Vitamin B-12) 1,000 MCG TABLET 1 Tablet ORAL DAILY Vit C/E/Zn/Coppr/Lutein/Zeaxan (Preservision Areds 2 Softgel) 250-200-40 CAPSULE 1 Capsule ORAL TWICE DAILY Start taking the following new medications: Risperidone (Risperidone) 0.25 MG TABLET 1 Tablet ORAL 4 TIMES A DAY as needed for AGITAT/HALLUCINATION/IRRITABIL Qty = 30 No Refills Clopidogrel Bisulfate (Plavix) 75 MG TABLET 75 Milligram ORAL DAILY Qty = 30 No Refills Diltiazem HCl (Cardizem) 30 MG TABLET 1 Tablet ORAL EVERY SIX HOURS Qty = 60 No Refills Furosemide (Furosemide) 20 MG TABLET 20 Milligram ORAL DAILY Qty = 30 No Refills Omeprazole (Omeprazole) 20 MG TABLET.DR 1 Tablet ORAL DAILY Qty = 30 No Refills Copies To: Salas GRIFFIN,Uday Arroela
[2017-07-22 15:06] VITALS: BP 120/72
[2017-07-22 22:49] VITALS: BP 120/70
--- NOTE | 2017-07-22 23:39 | PN- Cardiology ---
Subjective Subjective: No particular complaints. No recurrence of chest pains, no recurrence of fever. Hematuria observed. Objective Vital Signs and I&Os Vital Signs Date Time Temp Pulse Resp B/P B/P Pulse O2 O2 Flow FiO2 Mean Ox Delivery Rate 07/22 2249 99.0 88 20 120/70 93 Nasal Cannula 07/22 1724 88 120/74 07/22 1600 Nasal 1.0L Cannula 07/22 1528 72 120/72 07/22 1506 98.9 72 20 120/72 96 Nasal 1.0L Cannula 07/22 1102 84 102/50 07/22 1101 84 102/50 07/22 0800 90 Nasal 2.0L Cannula 07/22 0639 98.6 87 20 130/70 90 Room Air 07/22 0000 92 Nasal 2.0L Cannula Intake & Output 07/22 1600 07/22 0800 07/22 0000 07/21 1600 07/21 0800 07/21 0000 Intake Total 535.2 295.2 320 772 550 340 Output Total 200 150 Balance 335.2 295.2 320 772 400 340 Intake, IV 295.2 295.2 572 550 340 Intake, Oral 240 320 200 Number 1 0 Bowel Movements Output, Urine 200 150 Patient 161 lb 158 lb Weight Weight Bed scale Measurement Method Physical Exam: General Appearance: Alert, No Acute Distress HEENT: PERRLA, EOMI, Mucous Membr. moist/pink Cardiovascular: irregular, systolic murmur 2/6 LUSB Lungs: Clear to Auscultation, Normal Air Movement Abdomen: Normal Bowel Sounds, Soft, No Tenderness, No Hepatospenomegaly Extremities: No Clubbing, No Cyanosis Current Medications: Current Medications Sig/Karel Start time Last Medication Dose Route Stop Time Status Admin Acetaminophen 1,000 MG Q6P PRN 07/19 1245 AC 07/19 N/A 1 UNIT IV 1246 Acetaminophen 650 MG Q6P PRN 07/17 1745 AC PO Aspirin Buffered 81 MG DAILY 07/17 1750 AC 07/22 PO 1102 Atorvastatin Calcium 40 MG DAILY@1700 07/17 1750 AC 07/22 PO 1724 Clopidogrel Bisulfate 75 MG DAILY 07/21 0900 AC 07/22 PO 1101 Cyanocobalamin 1,000 MCG DAILY 07/17 1750 AC 07/22 PO 1103 Diltiazem HCl 30 MG Q6 07/22 1200 AC 07/22 PO 1724 Diltiazem HCl 240 MG DAILY 07/17 175 DC 07/21 PO 1449 Docusate Sodium 100 MG DAILY 07/20 1415 AC PO Donepezil HCl 5 MG DAILY 07/17 175 AC 07/22 PO 1102 Folic Acid 1 MG DAILY 07/17 175 AC 07/22 PO 1101 Furosemide 20 MG 0915 07/22 0915 DC 07/22 IV 07/22 0916 1101 Heparin Sodium 25,000 UNIT Q24H 07/22 2300 AC (Porcine) IV Sodium Chloride 500 ML Heparin Sodium 25,000 UNIT Q24H 07/19 1630 DC 07/22 (Porcine) IV 07/22 1600 0128 Sodium Chloride 500 ML Isosorbide 30 MG DAILY 07/17 175 07/22 Mononitrate PO 1102 Lisinopril 10 MG DAILY 07/17 175 AC 07/22 PO 1101 Phenytoin 100 MG BID 07/22 0926 AC 07/22 PO 1957 Phenytoin 100 MG Q12 07/19 1300 DC 07/21 Sodium Chloride 50 ML IV 205 Risperidone 0.25 MG 4 TIMES/DAY PRN 07/18 203 AC PO Senna/Docusate Sodium 2 TAB DAILY 07/21 0925 AC 07/21 PO 1448 Results Last 48 Hrs of Labs/Mics: Laboratory Tests 07/22/17 0828: APTT 30 07/22/17 0645: Anion Gap 13, Estimated GFR > 60, BUN/Creatinine Ratio 27.5 H, CBC w Diff NO MAN DIFF REQ, RBC 4.51 L, MCV 86.7, MCH 29.1, MCHC 33.5, RDW 13.9, MPV 8.7, Gran % 75.0, Lymphocytes % 11.1 L, Monocytes % 10.4 H, Eosinophils % 3.2, Basophils % 0.3, Absolute Granulocytes 6.1, Absolute Lymphocytes 0.9 L, Absolute Monocytes 0.8 H, Absolute Eosinophils 0.3, Absolute Basophils 0 07/22/17 0320: APTT 77 H 07/21/17 1940: APTT 58 H 07/21/17 1520: CBC w Diff NO MAN DIFF REQ, RBC 4.58 L, MCV 86.7, MCH 28.8, MCHC 33.2, RDW 14.5 , MPV 8.9, Gran % 80.3 H, Lymphocytes % 8.3 L, Monocytes % 10.5 H, Eosinophils % 0.6, Basophils % 0.3, Absolute Granulocytes 8.9 H, Absolute Lymphocytes 0.9 L, Absolute Monocytes 1.2 H, Absolute Eosinophils 0.1, Absolute Basophils 0 07/21/17 0642: APTT 85 H Assessment/Plan Assessment/Plan Recent NSTEMI and likely community acquired pneumonia. Hematuria on plavix/ASA/heparin. Heparin could be discontinued tomorrow. Continue telemetry? Yes
[2017-07-23 07:21] VITALS: BP 120/80
--- NOTE | 2017-07-23 08:10 | PN- Housestaff ---
Ministerio GRIFFIN,Lisa 07/23/17 0810: Subjective Follow-up For: AMS New onset afib Troponin elevation Hematuria Complaints: no complaints Tele-Events Since Last Visit: Atrial flutter rates 102 to 150s, highest rate 150 at 12:26 AM, PVC at 2:25 AM Subjective: Patient's remains confused as he has baseline dementia. Overnight he was pulling at lines and required restraints. He continues to be in atrial fibrillation/A flutter. He is on 1 L of oxygen right now. Review of Systems Constitutional: Reports: no symptoms. Cardiovascular: Reports: no symptoms. Respiratory: Reports: no symptoms. Gastrointestinal: Reports: no symptoms. Genitourinary: Reports: no symptoms. Musculoskeletal: Reports: no symptoms. Neurological/Psychological: Reports: confusion, dementia. Objective Last 24 Hrs of Vital Signs/I&O Vital Signs Date Time Temp Pulse Resp B/P B/P Pulse O2 O2 Flow FiO2 Mean Ox Delivery Rate 07/23 1312 67 130/70 07/23 0856 67 130/52 07/23 0856 130/52 07/23 0800 95 Nasal 1.0L Cannula 07/23 0721 97.6 67 20 120/80 96 Room Air 07/23 0608 58 128/70 07/23 0023 100 120/80 07/23 0000 93 Nasal 1.0L Cannula 07/22 2249 99.0 88 20 120/70 93 Nasal Cannula 07/22 1724 88 120/74 07/22 1600 Nasal 1.0L Cannula 07/22 1528 72 120/72 07/22 1506 98.9 72 20 120/72 96 Nasal 1.0L Cannula Intake & Output 07/23 1600 07/23 0800 07/23 0000 Intake Total 302 60 Output Total Balance 302 60 Intake, IV 182 Intake, Oral 120 60 Number 1 1 Bowel Movements Patient 159 lb Weight Weight Bed scale Measurement Method Physical Exam General Appearance: No Acute Distress Skin: No Rashes, No Breakdown, No Significant Lesion Skin Temp/Moisture Exam: Warm/Dry Sepsis Skin Exam (color): Normal for Ethnicity HEENT: Atraumatic, EOMI, Mucous Membr. moist/pink Cardiovascular: Regular Rate, Normal S1, Normal S2 Lungs: Clear to Auscultation, Normal Air Movement Abdomen: Normal Bowel Sounds, Soft, No Tenderness, No Hepatospenomegaly, No Masses Extremities: No Clubbing, No Cyanosis, No Edema, Normal Pulses, No Tenderness/ Swelling Vascular: Normal Pulses, Pulses Symmetrical Sepsis Peripheral Pulse Location: Radial Sepsis Peripheral Pulse Exam: Normal Current Medications: Current Medications Sig/Karel Start time Last Medication Dose Route Stop Time Status Admin Acetaminophen 1,000 MG Q6P PRN 07/19 1245 AC 07/19 N/A 1 UNIT IV 1246 Acetaminophen 650 MG Q6P PRN 07/17 1745 AC PO Aspirin Buffered 81 MG DAILY 07/17 175 AC 07/23 PO 0856 Atorvastatin Calcium 40 MG DAILY@1700 07/17 1750 AC 07/22 PO 1724 Clopidogrel Bisulfate 75 MG DAILY 07/21 0900 AC 07/23 PO 0856 Cyanocobalamin 1,000 MCG DAILY 07/17 175 AC 07/23 PO 0855 Diltiazem HCl 30 MG Q6 07/22 1200 AC 07/23 PO 1312 Docusate Sodium 100 MG DAILY 07/20 1415 AC 07/23 PO 0907 Donepezil HCl 5 MG DAILY 07/17 175 AC 07/23 PO 0856 Folic Acid 1 MG DAILY 07/17 175 AC 07/23 PO 0856 Heparin Sodium 25,000 UNIT Q24H 07/22 2300 DC 07/23 (Porcine) IV 0024 Sodium Chloride 500 ML Heparin Sodium 25,000 UNIT Q24H 07/19 1630 DC 07/22 (Porcine) IV 07/22 1600 0128 Sodium Chloride 500 ML Isosorbide 30 MG DAILY 07/17 175 AC 07/23 Mononitrate PO 0856 Lisinopril 10 MG DAILY 07/17 175 AC 07/23 PO 0856 Phenytoin 100 MG BID 07/22 0926 AC 07/23 PO 0856 Risperidone 0.25 MG 4 TIMES/DAY PRN 07/18 203 AC 07/23 PO 0023 Senna/Docusate Sodium 2 TAB DAILY 07/21 0925 AC 07/23 PO 0855 Last 24 Hrs of Lab/Carlos A Results Last 24 Hrs of Labs/Mics: Laboratory Tests 07/23/17 0719: Anion Gap 13, Estimated GFR > 60, BUN/Creatinine Ratio 28.8 H, APTT 32, CBC w Diff NO MAN DIFF REQ, RBC 4.33 L, MCV 87.3, MCH 29.3, MCHC 33.6, RDW 14.3, MPV 8.7, Gran % 73.6, Lymphocytes % 13.1 L, Monocytes % 9.6 H, Eosinophils % 3.4, Basophils % 0.3, Absolute Granulocytes 5.6, Absolute Lymphocytes 1.0 L, Absolute Monocytes 0.7 H, Absolute Eosinophils 0.3, Absolute Basophils 0 Lines/Diet/Fluids Restraints: right wrist, left wrist Assessment/Plan Assessment: This is a 89 yo male with PMH of Alzheimers dementia, CAD, HTN, HLD, legally blind, seizure d/o, GIB who comes in for CC of somnolence, confusion and urinary incontinence. He also complained of moderate headache, chest pain, and breathing difficulties to his prior to admission. PLAN Altered mental status: CT head shows atrophy w/ prominence of ventricles and chronic small vessel disease. Patient does have a history of Alzheimer's dementia. He has had a fever since yesterday and is currently on Unasyn for suspected aspiration pneumonia (see below). * Continue to hold standing Risperdal and hold available when necessary for agitation. * Continued donepezil and patient can tolerate by mouth medications * Neurochecks q6h * Patient is refusing to swallow medications, eating around 25% of his meals. Swallow eval was done and suggested pure and nectar. Patient is cleared to take by mouth meds crushed. Of note Cardizem cannot be crushed. Fever: Patient was found to have temperature of 101 orally and 100.6 rectally on 07/19. Currently in his afebrile. He was initially started on ceftriaxone as his UA showed blood, nitrites and leukocyte esterase negative though. Ceftriaxone was stopped and Unasyn 1.5 mg every 6h started for presumption of aspiration pneumonia in a patient that is having swallowing difficulties, altered mental status. Chest x-ray was clear. * Continue to follow off antibiotics * WBC count 6.3 on admission, 7.7 now * Follow cultures which will most likely stay negative as they were taken after patient was dosed ceftriaxone. * Tylenol when necessary for fever if it reappears Chest pain: Pt c/o CP at home. bnp 4320. TSH WNL. Note XRY: Mild central pulmonary vascular congestion with increased lung markings, mild interstitial edema. * Patient was found to have increasing troponins the morning of 07/19 which trended down, most recently 0.86 at 7:15 AM 07/20 and then fell to 0.76. EKG showed concave ST elevations in V1-V2, hemodynamically stable patient repeat EKG unchanged, suggest new ACS Type I [place] septal territory yet morphology of ST elevations not completely characteristic. He was also found to be in a flutter/ A. fib (and started on heparin drip and Cardizem, unfortunately the latter was accidentally overdosed) prior to this. We were unable to assess chest pain at this time as patient was altered mentally. Cardiovascular exam was significant for murmur of aortic stenosis which was present on intake. * Dr. De La Torre, radiation oncology nurse, was consulted and suggested close monitoring of the patient especially since he was started on heparin drip for anticoagulation secondary to new onset of A. fib. As per cardiology we also added Plavix to the regimen. As of this point we have stopped heparin. HAS-BLED score 5.8%. * Patient's outpatient medication regimen contains Cardizem 240 daily but with his altered mental status, he was not taking this medication reliably prior to admission as well as during this admission. It is at this time that the patient experienced the new onset A. fib. Patient has been continued on his Cardizem because he is eating now but he has taken to chewing on his Cardizem extended release capsules so we will convert his Cardizem dosing to 30 mg every 6 tablets. * Patient was found to have first-degree heart block and a 3 second pause status post overmedication with IV Cardizem push. Patient does have atropine and pacer pads available bedside but heart rate and rhythm was stable last night. * I/O and daily weights History of Alzheimer's Dementia * Con't Donepezil when patient able to tolerate by mouth medications * B12 normal, folate normal, TSH normal * Patient has been bedbound for this hospitalization and we will attempt physical therapy for discharge planning. Hematuria * Patient had evidence of RBCs in the way on admission but now is gross. Hemoglobin stable around 13. Patient is on Plavix. Acute on chronic systolic congestive heart failure and moderate / severe Aortic Stenosis: * Patient has clear chest on auscultation and good oxygen saturation overnight. Chest x-ray shows increasing vascular congestion. We are currently continuing him on 10mg lisinopril po daily. * Echocardiogram shows multisegmental hypokinesis, moderate pulmonary hypertension, moderate aortic stenosis, moderate left atrial dilatation with an ejection fraction of 35-45%. * Caution with lasix secondary to his aortic stenosis and administer cautiously. Constipation * Senna, Dulcolax * Do not give MiraLAX as it begins at the liquids and he requires thick liquids. Coronary Artery Disease/Hypertension/Hyperlipidemia: * Con't outpatient lisinopril 10mg, isosorbide mononitrate, statin, diltiazem, when patient able to tolerate oral medications. For now offered diltiazem and blood pressure control if needed. * Patient is on Cardizem outpatient and refused to swallow the medication yesterday, did successfully take the medication today so we will continue. * Con't ASA Hx seizures * Con't Phenytoin convert to oral * Con't Folic acid * Fall precautions and neuro checks every 6 hours Incidental finding of Soft tissue density opacifying the frontal sinuses: F/U out pt Disposition * PT is suggesting short-term rehabilitation but the patient may require longer term rehabilitation. * Patient used to care for his but at this point it is clear that he most likely will not be able to care for her so goals of care must be addressed. FC CHEM PPX HH Diet Problem List: 1. A-fib 2. Troponin level elevated 3. Aortic stenosis 4. CHF (congestive heart failure) 5. History of TIA (transient ischemic attack) 6. Seizure disorder 7. Dementia Pain Ratin Pain Location: na Pain Goal: Remain pain free Pain Plan: na Tomorrow's Labs & Rationales: cbc bep Alexander Leslie 07/23/17 1143: Attending MD Review Statement Attending Statement Attending MD Statement: examined this patient, discuss w/resident/PA/LOG BUNCHER, agreed w/resident/PA/LOG BUNCHER, discussed with family, reviewed EMR data (avail), discussed with nursing, discussed with case mgmt, reviewed images, amended to note Attending Assessment/Plan: Patient with no new complaints. NO chest pain. He remains poor historian due to his dementia. Acute on chronic Systolic heart failure. Chage iv to Lasix PO 20 mg daily, DALE inhibitor. ECHO with reduced EF 35% with diffuse hypokinesia. Aortic stenosis moderate. New onset afib rate controlled on cardizem PO 30 q 6. Transition from heparin to NOAC as per cardiology. His cardiac enzymes were elevated now trended down likely type 2 [place], antiplatelet therapy as per cardiology. Hematuria: júnior hemturia, h/h stable. HOLD A/C for now. PT recommends STR at discharge. Patient has advanced dementia. Goals of care discussion with /family, f/u family meeting.
[2017-07-23 08:17] LABS: ABSOLUTE BASOPHIL COUNT 0 /CUMM (0.0-0.2); ABSOLUTE EOSINOPHIL COUNT 0.3 /CUMM (0.0-0.7); ABSOLUTE GRANULOCYTE CT 5.6 /CUMM (1.4-6.5); ABSOLUTE MONOCYTE COUNT 0.7 /CUMM (0.10-0.60); BASOPHIL % 0.3 % (0.0-2.0); EOSINOPHIL % 3.4 % (0-5); GRANULOCYTE % 73.6 % (42.2-75.2); HEMATOCRIT 37.8 % (42-52); MEAN CORPUSCULAR HGB 29.3 PG (27.0-31.0); MEAN CORPUSCULAR HGB CONC 33.6 G/DL (33.0-37.0); MEAN CORPUSCULAR VOLUME 87.3 FL (80.0-94.0); MEAN PLATELET VOLUME 8.7 FL (7.4-10.4); PLATELET COUNT 204 /CUMM (130-400); RBC DISTRIBUTION WIDTH 14.3 % (11.5-14.5); RED BLOOD CELL CT 4.33 /CUMM (4.70-6.10); WHITE BLOOD CELL COUNT 7.7 /CUMM (4.8-10.8)
[2017-07-23 08:26] LABS: PTT 32 SEC (25-37)
[2017-07-23 14:51] VITALS: BP 110/62
[2017-07-23 22:24] VITALS: BP 142/70
[2017-07-24 07:30] VITALS: BP 130/70
[2017-07-24 07:41] LABS: ABSOLUTE BASOPHIL COUNT 0 /CUMM (0.0-0.2); ABSOLUTE EOSINOPHIL COUNT 0.2 /CUMM (0.0-0.7); ABSOLUTE GRANULOCYTE CT 8.7 /CUMM (1.4-6.5); ABSOLUTE LYMPH COUNT 0.9 /CUMM (1.2-3.4); ABSOLUTE MONOCYTE COUNT 0.8 /CUMM (0.10-0.60); BASOPHIL % 0.2 % (0.0-2.0); EOSINOPHIL % 1.5 % (0-5); GRANULOCYTE % 82.2 % (42.2-75.2); HEMATOCRIT 38.7 % (42-52); MEAN CORPUSCULAR HGB 29.4 PG (27.0-31.0); MEAN CORPUSCULAR HGB CONC 33.9 G/DL (33.0-37.0); MEAN CORPUSCULAR VOLUME 86.6 FL (80.0-94.0); MEAN PLATELET VOLUME 8.5 FL (7.4-10.4); PLATELET COUNT 224 /CUMM (130-400); RBC DISTRIBUTION WIDTH 14.5 % (11.5-14.5); RED BLOOD CELL CT 4.47 /CUMM (4.70-6.10); WHITE BLOOD CELL COUNT 10.6 /CUMM (4.8-10.8)
--- NOTE | 2017-07-24 08:37 | PN- Housestaff ---
Ministerio GRIFFIN,Lisa 07/24/17 0837: Subjective Follow-up For: AMS New onset afib nstemi Hematuria Complaints: pain scale (0-10) Tele-Events Since Last Visit: Normal sinus rhythm 69-83 Subjective: Patient today is slightly more lethargic than before but is rouse with sternal rub. Other than that patient is unchanged, vital stable 94% oxygen saturation on 1 L nasal cannula. Review of Systems Constitutional: Reports: no symptoms. Neurological/Psychological: Reports: confusion, dementia. Objective Last 24 Hrs of Vital Signs/I&O Vital Signs Date Time Temp Pulse Resp B/P B/P Pulse O2 O2 Flow FiO2 Mean Ox Delivery Rate 07/24 1600 9 Nasal 1.0L Cannula 07/24 1438 98.4 68 18 112/60 92 Nasal 1.0L Cannula 07/24 1313 98.3 86 18 130/70 07/24 1101 98.3 86 18 130/70 07/24 1100 86 130/70 07/24 0800 94 Nasal 1.0L Cannula 07/24 0730 98.3 86 18 130/70 94 Nasal Cannula 07/24 0632 130/75 07/24 0022 71 142/70 07/24 0000 Nasal 1.0L Cannula 07/23 2224 98.9 70 18 142/70 99 07/23 1849 67 110/62 Intake & Output 07/24 1600 07/24 0800 07/24 0000 Intake Total 120 40 240 Output Total Balance 120 40 240 Intake, Oral 120 40 240 Number 1 Bowel Movements Patient 158 lb Weight Physical Exam General Appearance: No Acute Distress Skin: No Rashes, No Breakdown, No Significant Lesion Sepsis Skin Exam (color): Normal for Ethnicity HEENT: Atraumatic, EOMI, Mucous Membr. moist/pink Cardiovascular: Regular Rate, Normal S1, Normal S2, No Murmurs Lungs: Clear to Auscultation, Normal Air Movement Abdomen: Normal Bowel Sounds, Soft, No Tenderness, No Hepatospenomegaly Extremities: No Clubbing, No Cyanosis, No Edema Current Medications: Current Medications Sig/Karel Start time Last Medication Dose Route Stop Time Status Admin Acetaminophen 1,000 MG Q6P PRN 07/19 1245 AC 07/19 N/A 1 UNIT IV 1246 Acetaminophen 650 MG Q6P PRN 07/17 1745 AC PO Aspirin Buffered 81 MG DAILY 07/17 1750 AC 07/24 PO 1100 Atorvastatin Calcium 40 MG DAILY@1700 07/17 1750 AC 07/24 PO 1703 Clopidogrel Bisulfate 75 MG DAILY 07/21 0900 AC 07/24 PO 1101 Cyanocobalamin 1,000 MCG DAILY 07/17 175 AC 07/24 PO 1100 Diltiazem HCl 30 MG Q6 07/22 1200 AC 07/24 PO 1702 Docusate Sodium 100 MG DAILY 07/20 1415 AC 07/24 PO 1107 Donepezil HCl 5 MG DAILY 07/17 175 AC 07/24 PO 1100 Folic Acid 1 MG DAILY 07/17 175 AC 07/24 PO 1100 Furosemide 20 MG DAILY 07/24 0948 AC 07/24 PO 1101 Isosorbide 30 MG DAILY 07/17 1750 AC 07/24 Mononitrate PO 1100 Lisinopril 10 MG DAILY 07/17 1750 AC 07/24 PO 1101 Phenytoin 100 MG BID 07/22 0926 AC 07/24 PO 1100 Risperidone 0.25 MG 4 TIMES/DAY PRN 07/18 2030 AC 07/24 PO 170 Senna/Docusate Sodium 2 TAB DAILY 07/21 0925 AC 07/24 PO 1100 Last 24 Hrs of Lab/Carlos A Results Last 24 Hrs of Labs/Mics: Laboratory Tests 07/24/17 0645: Anion Gap 12, Estimated GFR > 60, BUN/Creatinine Ratio 30.0 H, CBC w Diff NO MAN DIFF REQ, RBC 4.47 L, MCV 86.6, MCH 29.4, MCHC 33.9, RDW 14.5, MPV 8.5, Gran % 82.2 H, Lymphocytes % 8.3 L, Monocytes % 7.8, Eosinophils % 1.5, Basophils % 0.2, Absolute Granulocytes 8.7 H, Absolute Lymphocytes 0.9 L, Absolute Monocytes 0.8 H, Absolute Eosinophils 0.2, Absolute Basophils 0 Assessment/Plan Assessment: This is a 89 yo male with PMH of Alzheimers dementia, CAD, HTN, HLD, legally blind, seizure d/o, GIB who comes in for CC of somnolence, confusion and urinary incontinence. He also complained of moderate headache, chest pain, and breathing difficulties to his prior to admission. PLAN Altered mental status: CT head shows atrophy w/ prominence of ventricles and chronic small vessel disease. Patient does have a history of Alzheimer's dementia. He has had a fever since yesterday and is currently on Unasyn for suspected aspiration pneumonia (see below). * Continue to hold standing Risperdal and hold available when necessary for agitation. * Continued donepezil and patient can tolerate by mouth medications * Neurochecks q6h * Patient is refusing to swallow medications, eating around 25% of his meals. Swallow eval was done and suggested pure and nectar. Patient is cleared to take by mouth meds crushed. Of note Cardizem cannot be crushed so we will discharge him on Cardizem 30 mg every 6. Fever: Patient was found to have temperature of 101 orally and 100.6 rectally on 07/19. Currently in his afebrile. He was initially started on ceftriaxone as his UA showed blood, nitrites and leukocyte esterase negative though. Ceftriaxone was stopped and Unasyn 1.5 mg every 6h started for presumption of aspiration pneumonia in a patient that is having swallowing difficulties, altered mental status. Chest x-ray was clear. * Continue to follow off antibiotics * WBC count 6.3 on admission, and 10.6 now * Follow cultures which will most likely stay negative as they were taken after patient was dosed ceftriaxone. * Tylenol when necessary for fever if it reappears Chest pain: Pt c/o CP at home. bnp 4320. TSH WNL. Note XRY: Mild central pulmonary vascular congestion with increased lung markings, mild interstitial edema. * Patient was found to have increasing troponins the morning of 07/19 which trended down, most recently 0.86 at 7:15 AM 07/20 and then fell to 0.76. EKG showed concave ST elevations in V1-V2, hemodynamically stable patient repeat EKG unchanged, suggest new ACS Type I [place], NSTEMI septal territory, morphology of ST elevations not completely characteristic of ST elevation [place]. He was also found to be in a flutter/A. fib (and started on heparin drip and Cardizem, unfortunately the latter was accidentally overdosed) prior to this. We were unable to assess chest pain at this time as patient was altered mentally. Cardiovascular exam was significant for murmur of aortic stenosis which was present on intake. * Dr. De La Torre, orange grower, was consulted and suggested close monitoring of the patient especially since he was started on heparin drip for anticoagulation secondary to new onset of A. fib. As per cardiology we also added Plavix to the regimen. As of this point we have stopped heparin. HAS-BLED score 5.8%. * Patient's outpatient medication regimen contains Cardizem 240 daily but with his altered mental status, he was not taking this medication reliably prior to admission as well as during this admission. It is at this time that the patient experienced the new onset A. fib. Patient has been continued on his Cardizem because he is eating now but he has taken to chewing on his Cardizem extended release capsules so we will convert his Cardizem dosing to 30 mg every 6 tablets. * Patient was found to have first-degree heart block and a 3 second pause status post overmedication with IV Cardizem push. Patient does have atropine and pacer pads available bedside but heart rate and rhythm was stable last night. History of Alzheimer's Dementia * Con't Donepezil when patient able to tolerate by mouth medications * B12 normal, folate normal, TSH normal Hematuria * Hematuria has resolved. Hemoglobin stable around 13. Patient is on Plavix. Acute on chronic systolic congestive heart failure and moderate / severe Aortic Stenosis: * Patient has clear chest on auscultation and good oxygen saturation overnight. Chest x-ray shows increasing vascular congestion. We are currently continuing him on 10mg lisinopril po daily. * Echocardiogram shows multisegmental hypokinesis, moderate pulmonary hypertension, moderate aortic stenosis, moderate left atrial dilatation with an ejection fraction of 35-45%. * Caution with lasix secondary to his aortic stenosis and administer cautiously. Continue patient's home Lasix dose of 20 mg per day. * I/O and daily weights Constipation * Senna, Dulcolax * Do not give MiraLAX as it begins at the liquids and he requires thick liquids. Coronary Artery Disease/Hypertension/Hyperlipidemia: * Con't outpatient lisinopril 10mg, isosorbide mononitrate, statin, diltiazem, when patient able to tolerate oral medications. For now offered diltiazem and blood pressure control if needed. * Patient is on Cardizem outpatient and refused to swallow the medication yesterday, did successfully take the medication today so we will continue. * Con't ASA Hx seizures * Con't Phenytoin convert to oral * Con't Folic acid * Fall precautions and neuro checks every 6 hours Incidental finding of Soft tissue density opacifying the frontal sinuses: F/U out pt Disposition * PT is suggesting short-term rehabilitation but the patient may require longer term rehabilitation. * Patient used to care for his but at this point it is clear that he most likely will not be able to care for her so goals of care must be addressed. FC CHEM PPX HH Diet Problem List: 1. Troponin level elevated 2. Fever of unknown origin 3. A-fib 4. Aortic stenosis 5. CHF (congestive heart failure) Pain Ratin Pain Location: na Pain Goal: Remain pain free Pain Plan: na Tomorrow's Labs & Rationales: Alexander Escobar 07/24/17 1149: Attending MD Review Statement Attending Statement Attending MD Statement: examined this patient, discuss w/resident/PA/PATIENT CENTERED CARE SPECIALIST, agreed w/resident/PA/PATIENT CENTERED CARE SPECIALIST, discussed with family, reviewed EMR data (avail), discussed with nursing, discussed with case mgmt, reviewed images, amended to note Attending Assessment/Plan: Await family meeting today.
--- NOTE | 2017-07-24 13:36 | PN- Cardiology ---
Subjective Subjective: Lethargic and more confused. No particular complaints. No recurrence of fever. Denies chest pains. AFib with satisfactory control of ventricular rate (80-110). Objective Vital Signs and I&Os Vital Signs Date Time Temp Pulse Resp B/P B/P Pulse O2 O2 Flow FiO2 Mean Ox Delivery Rate 07/24 1313 98.3 86 18 130/70 07/24 1101 98.3 86 18 130/70 07/24 1100 86 130/70 07/24 0800 94 Nasal 1.0L Cannula 07/24 0730 98.3 86 18 130/70 94 Nasal Cannula 07/24 0632 130/75 07/24 0022 71 142/70 07/24 0000 Nasal 1.0L Cannula 07/23 2224 98.9 70 18 142/70 99 07/23 1849 67 110/62 07/23 1600 Nasal 1.0L Cannula 07/23 1451 98.0 67 20 110/62 94 Nasal 1.0L Cannula Intake & Output 07/24 1600 07/24 0800 07/24 0000 07/23 1600 07/23 0800 07/23 0000 Intake Total 40 240 480 302 60 Output Total Balance 40 240 480 302 60 Intake, IV 182 Intake, Oral 40 240 480 120 60 Number 1 1 1 1 Bowel Movements Patient 158 lb 159 lb Weight Weight Bed scale Measurement Method Physical Exam: General Appearance: No Acute Distress HEENT: Atraumatic, EOMI, Mucous Membr. moist/pink Cardiovascular: irregular rate, systolic murmur 2/6 LUSB Lungs: Clear to Auscultation, Normal Air Movement Abdomen: Normal Bowel Sounds, Soft, No Tenderness Extremities: Normal Pulses, no edema Vascular: Normal Pulses, Pulses Symmetrical Current Medications: Current Medications Sig/Karel Start time Last Medication Dose Route Stop Time Status Admin Acetaminophen 1,000 MG Q6P PRN 07/19 1245 AC 07/19 N/A 1 UNIT IV 1246 Acetaminophen 650 MG Q6P PRN 07/17 1745 AC PO Aspirin Buffered 81 MG DAILY 07/17 175 AC 07/24 PO 1100 Atorvastatin Calcium 40 MG DAILY@1700 07/17 1750 AC 07/23 PO 1849 Clopidogrel Bisulfate 75 MG DAILY 07/21 0900 AC 07/24 PO 1101 Cyanocobalamin 1,000 MCG DAILY 07/17 175 AC 07/24 PO 1100 Diltiazem HCl 30 MG Q6 07/22 1200 AC 07/24 PO 1313 Docusate Sodium 100 MG DAILY 07/20 1415 AC 07/24 PO 1107 Donepezil HCl 5 MG DAILY 07/17 175 AC 07/24 PO 1100 Folic Acid 1 MG DAILY 07/17 175 AC 07/24 PO 1100 Furosemide 20 MG DAILY 07/24 0948 AC 07/24 PO 1101 Isosorbide 30 MG DAILY 07/17 175 AC 07/24 Mononitrate PO 1100 Lisinopril 10 MG DAILY 07/17 175 AC 07/24 PO 1101 Phenytoin 100 MG BID 07/22 0926 AC 07/24 PO 1100 Risperidone 0.25 MG 4 TIMES/DAY PRN 07/18 2030 AC 07/23 PO 0023 Senna/Docusate Sodium 2 TAB DAILY 07/21 09 AC 07/24 PO 1100 Results Last 48 Hrs of Labs/Mics: Laboratory Tests 07/24/17 0645: Anion Gap 12, Estimated GFR > 60, BUN/Creatinine Ratio 30.0 H, CBC w Diff NO MAN DIFF REQ, RBC 4.47 L, MCV 86.6, MCH 29.4, MCHC 33.9, RDW 14.5, MPV 8.5, Gran % 82.2 H, Lymphocytes % 8.3 L, Monocytes % 7.8, Eosinophils % 1.5, Basophils % 0.2, Absolute Granulocytes 8.7 H, Absolute Lymphocytes 0.9 L, Absolute Monocytes 0.8 H, Absolute Eosinophils 0.2, Absolute Basophils 0 07/23/17 0719: Anion Gap 13, Estimated GFR > 60, BUN/Creatinine Ratio 28.8 H, APTT 32, CBC w Diff NO MAN DIFF REQ, RBC 4.33 L, MCV 87.3, MCH 29.3, MCHC 33.6, RDW 14.3, MPV 8.7, Gran % 73.6, Lymphocytes % 13.1 L, Monocytes % 9.6 H, Eosinophils % 3.4, Basophils % 0.3, Absolute Granulocytes 5.6, Absolute Lymphocytes 1.0 L, Absolute Monocytes 0.7 H, Absolute Eosinophils 0.3, Absolute Basophils 0 Assessment/Plan Assessment/Plan New onset Afib and NSTEMI in the context of sepsis of pulmonary +/- urinary origin in elderly patient with dementia. ventricular rate is satifactory at this time. Plavix has been started during his hospital stay for the NSTEMI (seems he had a primary small plaque rupture after a type 2 NSTEMI initially...). I would keep it for a total of 4 weeks if tolerated due to his frailty. I would also refrain from [facility] antico[facility] in this patient who is at high risk of fall and injury. Continue telemetry? Yes
[2017-07-24] MEDS ORDERED: RISPERIDONE0.25 M1 PO (14:36)
[2017-07-24 14:38] VITALS: BP 112/60
[2017-07-24] MEDS ORDERED: PLAVIX75 M1 PO (15:10)
[2017-07-24] MEDS ORDERED: CARDIZEM30 M1 PO (15:10)
[2017-07-24] MEDS ORDERED: FUROSEMIDE20 M1 PO (15:10)
--- NOTE | 2017-07-24 15:12 | Patient Discharge Instructions ---
Discharge Instructions General Discharge Information You were seen/treated for: altered mental status new onset atrial fibrillation NSTEMI (myocardial infarction/heart attack) Special Instructions: 1. please follow up with your pcp in one week 2. please follow up with your polymer tester in one week for duration of plavax therapy 3. please take all medications as directed 4. if chest pain or severe shortness of breath recurs, call 911 Diet Continue normal diet: Yes Activity Full Activity/No Limits: Yes (as tolerated) Acute Coronary Syndrome Inclusion Criteria At DC or during hospital stay patient has or had the following: ACS DIAGNOSIS Yes Discharge Core Measures Meds if any: Prescribed or Continued at Discharge Meds if any: NOT Prescribed or Continued at Discharge Congestive Heart Failure Inclusion Criteria At DC or during hospital stay patient has or had the following: CHF DIAGNOSIS No Discharge Core Measures Meds if any: Prescribed or Continued at Discharge Meds if any: NOT Prescribed or Continued at Discharge Cerebrovascular accident Inclusion Criteria At DC or during hospital stay patient has or had the following: CVA/TIA Diagnosis No Discharge Core Measures Meds if any: Prescribed or Continued at Discharge Meds if any: NOT Prescribed or Continued at Discharge Venous thromboembolism Inclusion Criteria VTE Diagnosis No VTE Type NONE VTE Confirmed by (Test) NONE Discharge Core Measures - Per Current guidelines, there needs to be overlap - treatment for the first 5 days of Warfarin therapy. - If discharged on Warfarin prior to 5 days of - overlap therapy, the patient will need to be - assessed for post discharge needs including - *Post discharge parental anticoagulation - *Warfarin and/or parental anticoagulation education - *Follow up date to check INR post discharge At least 5 days overlap therapy as Inpatient No Meds if any: Prescribed or Continued at Discharge Note: Overlap Therapy is Warfarin and Anticoagulant Meds if any: NOT Prescribed or Continued at Discharge
[2017-07-24] MEDS ORDERED: OMEPRAZOLE20 M3 PO (15:43)
[2017-07-24 22:44] VITALS: BP 128/80
[2017-07-25 07:18] VITALS: BP 150/80
--- NOTE | 2017-07-25 08:53 | PN- Housestaff ---
Dom GRIFFIN,Cecilio 07/25/17 0852: Subjective Follow-up For: AMS New onset afib nstemi Hematuria Tele-Events Since Last Visit: A. fib HR in 70s Subjective: Patient was seen and examined at bedside. He was lethargic and uncooperative with most of the exam and was not responsive to most questions. He did say that he was feeling comfortable but would not answer if he was in any pain. Review of systems was not able to be assessed. Review of Systems Constitutional: Reports: see HPI. Objective Last 24 Hrs of Vital Signs/I&O Vital Signs Date Time Temp Pulse Resp B/P B/P Pulse O2 O2 Flow FiO2 Mean Ox Delivery Rate 07/25 0718 98.0 74 22 150/80 95 07/25 0526 80 140/72 07/25 0000 94 Nasal 1.0L Cannula 07/24 2302 74 07/24 2244 98.4 65 20 128/80 97 07/24 1600 9 Nasal 1.0L Cannula 07/24 1438 98.4 68 18 112/60 92 Nasal 1.0L Cannula 07/24 1313 98.3 86 18 130/70 07/24 1101 98.3 86 18 130/70 07/24 1100 86 130/70 Intake & Output 07/25 1600 07/25 0800 07/25 0000 Intake Total Output Total Balance Patient 156 lb Weight Physical Exam General Appearance: No Acute Distress, lethargic and not cooperative with exam Skin Temp/Moisture Exam: Warm/Dry Sepsis Skin Exam (color): Normal for Ethnicity Cardiovascular: Regular Rate, Normal S1, Normal S2, irregularly irregular rhythm Lungs: diminished breath sounds, but patient is not cooperative with exam Abdomen: Normal Bowel Sounds, Soft, No Tenderness Neurological: Normal Tone Extremities: No Clubbing, No Cyanosis, No Edema Current Medications: Current Medications Sig/Karel Start time Last Medication Dose Route Stop Time Status Admin Acetaminophen 1,000 MG Q6P PRN 07/19 1245 AC 07/19 N/A 1 UNIT IV 1246 Acetaminophen 650 MG Q6P PRN 07/17 1745 AC PO Aspirin Buffered 81 MG DAILY 07/17 175 AC 07/24 PO 1100 Atorvastatin Calcium 40 MG DAILY@1700 07/17 1750 AC 07/24 PO 1703 Clopidogrel Bisulfate 75 MG DAILY 07/21 0900 AC 07/24 PO 1101 Cyanocobalamin 1,000 MCG DAILY 07/17 1750 AC 07/24 PO 1100 Diltiazem HCl 30 MG Q6 07/22 1200 AC 07/25 PO 0526 Docusate Sodium 100 MG DAILY 07/20 1415 AC 07/24 PO 1107 Donepezil HCl 5 MG DAILY 07/17 175 AC 07/24 PO 1100 Folic Acid 1 MG DAILY 07/17 175 AC 07/24 PO 1100 Furosemide 20 MG DAILY 07/24 0948 AC 07/24 PO 1101 Isosorbide 30 MG DAILY 07/17 175 AC 07/24 Mononitrate PO 1100 Lisinopril 10 MG DAILY 07/17 175 AC 07/24 PO 1101 Phenytoin 100 MG BID 07/22 09 AC 07/24 PO 205 Risperidone 0.25 MG 4 TIMES/DAY PRN 07/18 2030 AC 07/24 PO 230 Senna/Docusate Sodium 2 TAB DAILY 07/21 0925 AC 07/24 PO 1100 Last 24 Hrs of Lab/Carlos A Results Last 24 Hrs of Labs/Mics: Laboratory Tests 07/24/171835: Urine Color YEL, Urine Clarity CLEAR, Urine pH 6.0, Ur Specific [place] 1.025, Urine Protein NEG, Urine Ketones NEG, Urine Nitrite NEG, Urine Bilirubin NEG, Urine Urobilinogen 0.2, Ur Leukocyte Esterase NEG, Ur Microscopic SEDIMENT EXAMINED, Urine RBC 5-10 H, Urine WBC RARE, Ur Epithelial Cells RARE, Urine Bacteria RARE H, Urine Mucus RARE, Urine Hemoglobin LARGE H, Urine Glucose NEG Assessment/Plan Assessment: This is a 89 yo male with PMH of Alzheimers dementia, CAD, HTN, HLD, legally blind, seizure d/o, GIB who comes in for CC of somnolence, confusion and urinary incontinence. He also complained of moderate headache, chest pain, and breathing difficulties to his prior to admission. PLAN Altered mental status: CT head shows atrophy w/ prominence of ventricles and chronic small vessel disease. Patient does have a history of Alzheimer's dementia. He has had a fever since yesterday and is currently on Unasyn for suspected aspiration pneumonia (see below). * Continued donepezil and patient can tolerate by mouth medications * Patient is refusing to swallow medications, eating around 25% of his meals. Swallow eval was done and suggested pure and nectar. Patient is cleared to take by mouth meds crushed. Of note Cardizem CD cannot be crushed so we will discharge him on Cardizem 30 mg every 6. * Patient is stable for discharge to [facility] Fib: rate controlled * Continue on Cardizem 30 mg every 6 hours * Due to dementia fall risk he will not be anticoagulated Fever: Patient was found to have temperature of 101 orally and 100.6 rectally on 07/19. Currently in his afebrile. He was initially started on ceftriaxone as his UA showed blood, nitrites and leukocyte esterase negative though. Ceftriaxone was stopped and Unasyn 1.5 mg every 6h started for presumption of aspiration pneumonia in a patient that is having swallowing difficulties, altered mental status. Chest x-ray was clear. * Continue to follow off antibiotics * WBC count 6.3 on admission, and 10.6 now * Follow cultures which will most likely stay negative as they were taken after patient was dosed ceftriaxone. * Tylenol when necessary for fever if it reappears Chest pain: Pt c/o CP at home. bnp 4320. TSH WNL. Note XRY: Mild central pulmonary vascular congestion with increased lung markings, mild interstitial edema. * Patient was found to have increasing troponins the morning of 07/19 which trended down, most recently 0.86 at 7:15 AM 07/20 and then fell to 0.76. EKG showed concave ST elevations in V1-V2, hemodynamically stable patient repeat EKG unchanged, suggest new ACS Type I AK, NSTEMI septal territory, morphology of ST elevations not completely characteristic of ST elevation AK. He was also found to be in a flutter/A. fib (and started on heparin drip and Cardizem, unfortunately the latter was accidentally overdosed) prior to this. We were unable to assess chest pain at this time as patient was altered mentally. Cardiovascular exam was significant for murmur of aortic stenosis which was present on intake. * Dr. De La Torre, vault keeper, was consulted and suggested close monitoring of the patient especially since he was started on heparin drip for anticoagulation secondary to new onset of A. fib. As per cardiology we also added Plavix to the regimen. As of this point we have stopped heparin. HAS-BLED score 5.8%. * Patient's outpatient medication regimen contains Cardizem 240 daily but with his altered mental status, he was not taking this medication reliably prior to admission as well as during this admission. It is at this time that the patient experienced the new onset A. fib. Patient has been continued on his Cardizem because he is eating now but he has taken to chewing on his Cardizem extended release capsules so we will convert his Cardizem dosing to 30 mg every 6 tablets. * Patient was found to have first-degree heart block and a 3 second pause status post overmedication with IV Cardizem push. Patient does have atropine and pacer pads available bedside but heart rate and rhythm was stable last night. History of Alzheimer's Dementia * Con't Donepezil when patient able to tolerate by mouth medications * B12 normal, folate normal, TSH normal Hematuria * Hematuria has resolved. Hemoglobin stable around 13. Patient is on Plavix. Acute on chronic systolic congestive heart failure and moderate / severe Aortic Stenosis: * Patient has clear chest on auscultation and good oxygen saturation overnight. Chest x-ray shows increasing vascular congestion. We are currently continuing him on 10mg lisinopril po daily. * Echocardiogram shows multisegmental hypokinesis, moderate pulmonary hypertension, moderate aortic stenosis, moderate left atrial dilatation with an ejection fraction of 35-45%. * Caution with lasix secondary to his aortic stenosis and administer cautiously. Continue patient's home Lasix dose of 20 mg per day. * I/O and daily weights Constipation * Senna, Dulcolax * Do not give MiraLAX as it begins at the liquids and he requires thick liquids. Coronary Artery Disease/Hypertension/Hyperlipidemia: * Con't outpatient lisinopril 10mg, isosorbide mononitrate, statin, diltiazem, when patient able to tolerate oral medications. For now offered diltiazem and blood pressure control if needed. * Patient is on Cardizem outpatient and refused to swallow the medication yesterday, did successfully take the medication today so we will continue. * Con't ASA Hx seizures * Con't Phenytoin convert to oral * Con't Folic acid * Fall precautions and neuro checks every 6 hours Incidental finding of Soft tissue density opacifying the frontal sinuses: F/U out pt Disposition * PT is suggesting short-term rehabilitation but the patient may require longer term rehabilitation. * Patient used to care for his but at this point it is clear that he most likely will not be able to care for her so goals of care must be addressed. FC CHEM PPX HH Diet Problem List: 1. A-fib 2. Aortic stenosis 3. CHF (congestive heart failure) 4. Dementia Pain Ratin Pain Location: unable to assess Pain Goal: Remain pain free Pain Plan: pain pathway Tomorrow's Labs & Rationales: none Alexander Leslie 07/25/17 1309: Attending MD Review Statement Attending Statement Attending MD Statement: examined this patient, discuss w/resident/PA/LOAN COORDINATOR, agreed w/resident/PA/LOAN COORDINATOR, discussed with family, reviewed EMR data (avail), discussed with nursing, discussed with case mgmt, reviewed images, amended to note Attending Assessment/Plan: Poor historian, no overnight complaints. Acute on chronic Systolic heart failure. Lasix PO 20 mg daily, DALE inhibitor. ECHO with reduced EF 35% with diffuse hypokinesia. Aortic stenosis moderate. afib rate controlled on cardizem PO 30 q 6. Cardiology recommend No A/c considering hematuria/advanced dementia with risk/benefit. His cardiac enzymes were elevated now trended down likely type 2 AK, antiplatelet therapy as per cardiology. Hematuria:h/h stable with improvement. PT recommends STR at discharge. Patient has advanced dementia Cont supportive care. Goals of care discussion with /family who decided to transfer patient to STR. Medically stable for discharge.
[2017-07-25 15:00] VITALS: BP 116/58
[2017-07-25 16:43] VITALS: BP 116/58
== END 2017-07-25 17:00 | DRG 177 ==
LOC: ERH 13:52 → 1NO 16:19 → ERHI 16:19 → ENRESERV 22:09 → ENTRNSPT 22:49 → 1NO 23:08
PROVIDERS: Dermatology; Emergency Medicine; Internal Medicine; Internal Medicine Interventional Cardiology; Student in an Organized Health Care Education/Training Program
DX: J69.0 Pneumonitis due to inhalation of food and vomit (principal); I21.A1 Myocardial infarction type 2; I50.23 Acute on chronic systolic (congestive) heart failure; I48.91 Unspecified atrial fibrillation; F02.81 Dementia in other diseases classified elsewhere, unspecified severity, with behavioral disturbance; G30.9 Alzheimer's disease, unspecified; G40.909 Epilepsy, unspecified, not intractable, without status epilepticus; I35.0 Nonrheumatic aortic (valve) stenosis; E78.5 Hyperlipidemia, unspecified; H54.7 Unspecified visual loss; I48.92 Unspecified atrial flutter; I11.0 Hypertensive heart disease with heart failure; R31.9 Hematuria, unspecified; I25.10 Atherosclerotic heart disease of native coronary artery without angina pectoris; T46.1X1A Poisoning by calcium-channel blockers, accidental (unintentional), initial encounter; K59.00 Constipation, unspecified; I44.0 Atrioventricular block, first degree; Y92.230 Patient room in hospital as the place of occurrence of the external cause; Z90.49 Acquired absence of other specified parts of digestive tract; R32 Unspecified urinary incontinence; Z91.048 Other nonmedicinal substance allergy status; Z86.73 Personal history of transient ischemic attack (TIA), and cerebral infarction without residual deficits
CPT/HCPCS: 1NP; 36415; 36592; 71045; 71046; 81001; 82436; 87040; 87086; 87449; 87450; 87804; 87804-59; 93005; 93010; 93306; 96374; 97110-GO; 97112-GO; 97161-GP; 97530-GO; J0131; J0461; J0696; J1165; J1644; J1940; J3490; J7042

== ENCOUNTER 2017-07-28 15:38 | Observation (INO) | payer OTHER, MEDICARE ==
[~2017-07-28] VITALS: Ht 165.1 cm; Wt 64.0 kg
[~2017-07-28 15:38] MED LIST changes: +ASPIRIN EC81 M1 PO; +CARDIZEM30 M1 PO; +FOLIC ACID1 M1 PO; +FUROSEMIDE20 M1 PO; +OMEPRAZOLE20 M3 PO; +PLAVIX75 M1 PO; +PRESERVISION A1 EAC1 PO; +RISPERIDONE0.25 M1 PO
--- NOTE | 2017-07-28 16:00 | ED GENERAL ADULT ---
History of Present Illness General Chief Complaint: General Adult Stated Complaint: BIBA FOR HIGH SODIUM LEVELS Source: EMS, W10 Exam Limitations: unable to give history, dementia Vital Signs & Intake/Output Vital Signs & Intake/Output Vital Signs Date Time Temp Pulse Resp B/P B/P Pulse O2 O2 Flow FiO2 Mean Ox Delivery Rate 07/29 0826 98.0 62 20 115/58 95 Nasal 2.0L Cannula 07/29 0621 98.4 69 20 128/63 07/29 0605 98.4 69 20 128/63 95 Nasal 2.0L Cannula 07/29 0358 97.7 66 18 109/59 97 Nasal 2.0L Cannula 07/28 2001 66 18 112/61 95 Nasal 1.5L Cannula 07/28 1724 99.6 74 16 114/57 94 Nasal 1.5L Cannula 07/28 1548 99.2 66 20 120/58 94 Nasal 2.0L Cannula ED Intake and Output 07/29 0000 07/28 1200 Intake Total 1000 Output Total Balance 1000 Intake, IV 1000 Allergies Coded Allergies: adhesive (UNKNOWN 12/05/15) Reconcile Medications Aspirin (Ecotrin*) 81 MG TABLET.DR 1 TAB PO DAILY HEART HEALTH (Reported) Atorvastatin Calcium 40 MG TABLET 1 TAB PO DAILY CHOLESTEROL (Reported) Clopidogrel Bisulfate (Plavix) 75 MG TABLET 75 MG PO DAILY coronary artery disease Cyanocobalamin (Vitamin B-12) 1,000 MCG TABLET 1 TAB PO DAILY VITAMIN SUPPORT (Reported) Diltiazem HCl (Cardizem) 30 MG TABLET 1 TAB PO Q6 heart rate Folic Acid 1 MG TABLET 1 TAB PO DAILY VITAMIN SUPPORT (Reported) Furosemide 20 MG TABLET 20 MG PO DAILY diuresis Isosorbide Mononitrate (Isosorbide Mononitrate ER) 30 MG TAB.ER.24H 1 TAB PO DAILY HEART (Reported) Lisinopril 10 MG TABLET 1 TAB PO DAILY BP (Reported) Nitroglycerin (Nitrostat) (Unknown Strength) TAB.SUBL 0.3 MG SL AD PRN HEART (Reported) 1st sign of attack; may repeat every 5 minutes until relief; if pain persists after 3 tablets in 15 minutes, prompt medical att Omeprazole 20 MG TABLET.DR 1 TAB PO DAILY gastric protection Phenytoin Sodium Extended 100 MG CAPSULE 1 CAP PO BID SEIZURES (Reported) Risperidone 0.25 MG TABLET 1 TAB PO 4 TIMES/DAY PRN AGITAT/HALLUCINATION/ IRRITABIL Vit C/E/Zn/Coppr/Lutein/Zeaxan (Preservision Areds 2 Softgel) 250-200-40 CAPSULE 1 CAP PO BID EYE (Reported) Triage Note: PT BIBA FROM [facility] TO ER SENT IN BY PRIMARY OF NH/REHAB FOR HIGH SODIUM LEVEL Triage Nurses Notes Reviewed? yes HPI: Patient presents for evaluation of an elevated sodium level. Patient himself is unable to provide history. (Haylee GRIFFIN,Harvinder Trinidad) Past History Travel History Traveled to [place] past 21 day No Medical History Any Pertinent Medical History? 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 No (Haylee GRIFFIN,Harvinder Trinidad) Review of Systems Review of Systems Constitutional: Reports: no symptoms. EENTM: Reports: no symptoms. Respiratory: Reports: no symptoms. Cardiovascular: Reports: no symptoms. GI: Reports: no symptoms. Genitourinary: Reports: no symptoms. Musculoskeletal: Reports: no symptoms. Skin: Reports: no symptoms. Neurological/Psychological: Reports: no symptoms. Hematologic/Endocrine: Reports: no symptoms. Immunologic/Allergic: Reports: no symptoms. All Other Systems: Reviewed and Negative Comments Patient unable to provide review of systems (Haylee GRIFFIN,Harvinder Trinidad) Physical Exam Physical Exam General Appearance: SEE BELOW Comments: Gen.: Well-nourished, well-developed, no acute respiratory distress. Head: Normocephalic, atraumatic. Eyes: Normal inspection bilaterally Ears: Normal inspection bilaterally Nose: Normal inspection Throat/mouth : Moist mucosa Neck: No goiter or JVD Heart: Regular rate and rhythm, no murmurs rubs or gallops Lungs: Clear to auscultation bilaterally with normal air entry (poor respiratory effort) Chest: Nontender Back: Normal range of motion Abdomen: Soft, nontender, nondistended, normal bowel sounds Extremities: Normal range of motion grossly, equal radial pulses, no cyanosis clubbing or edema Neurologic: Cranial nerves grossly intact, speech is clear Skin: warm and dry Psychiatric: Calm, cooperative, no apparent delusions or hallucinations (Haylee GRIFFIN,Harvinder Trinidad) Core Measures ACS in differential dx? No CVA/TIA Diagnosis: No Sepsis Present: No Sepsis Focused Exam Completed? No (Harvinder Coburn DO) Progress Differential Diagnoses I considered the following diagnoses in my evaluation of the patient: Plan of Care: Orders Procedure Date/time Status Heart Healthy Diet 07/29 B Active BASIC METABOLIC PANEL 07/29 0616 Complete URINE OSMOLALITY 07/28 2133 Complete ED Holding Orders 07/28 1956 Active Vital Signs 07/28 1956 Active URINE LYTES, SPOT 07/28 1956 Complete URINALYSIS 07/28 1956 Complete Intake & Output 07/[address] in observation 07/28 1944 Active Patient Data 07/28 1944 Active SERUM OSMOLALITY 07/28 181 Complete BASIC METABOLIC PANEL 07/28 1732 Complete Lab Add-on Test 07/28 UNK Active Current Medications Sig/Karel Start time Last Medication Dose Stop Time Status Admin Atorvastatin Calcium 40 MG 1700 07/29 1700 AC (Lipitor) Aspirin Buffered 81 MG DAILY 07/29 09 AC (Ecotrin) Clopidogrel Bisulfate 75 MG DAILY 07/29 09 AC (Plavix) Donepezil HCl 5 MG DAILY 07/29 899 AC (Aricept) Furosemide 20 MG DAILY 07/29 899 CAN (Lasix) Isosorbide 30 MG DAILY 07/29 09 AC Mononitrate (Imdur) Lisinopril 10 MG DAILY 07/29 09 AC (Prinivil) Diltiazem HCl 30 MG Q6 07/28 2359 AC 07/29 (Cardizem) 0621 Dextrose/Sodium 1,000 ML Q13H 07/28 2145 AC 07/28 Chloride 2251 (D5W-1/2 Normal Saline 1000ML) Phenytoin 100 MG BID 07/28 2100 AC 07/28 (Dilantin ER) 2251 Risperidone 0.25 MG 4 TIMES/DAY PRN 07/29 1999 AC (risperiDONE) Laboratory Tests 07/29/17 0632: Anion Gap 12, Estimated GFR > 60, BUN/Creatinine Ratio 28.6 H, Glucose 132 H, Calcium 8.9 07/28/172133: Urine Color YEL, Urine Clarity CLEAR, Urine pH 6.5, Ur Specific [place] 1.025, Urine Protein TRACE H, Urine Ketones NEG, Urine Nitrite NEG, Urine Bilirubin NEG, Urine Urobilinogen 0.2, Ur Leukocyte Esterase NEG, Ur Microscopic SEDIMENT EXAMINED, Urine RBC 3-5, Urine WBC RARE, Ur Epithelial Cells RARE, Urine Bacteria RARE H, Urine Mucus FEW, Urine Hemoglobin TRACE-INTACT H, Urine Glucose NEG 07/28/172133: Urine Osmolality 899, Ur Random Creatinine 119.9, Ur Random Sodium 211 H, Ur Random Potassium 42.0, Fraction Sodium Excret 1.0 07/28/171814: Anion Gap 8, Estimated GFR > 60, BUN/Creatinine Ratio 30.0 H, Glucose 113 H, Serum Osmolality 316 H, Calcium 8.6 Comments: 07/28/2017 7:47:09 PM patient signed out to Dr. Mcbride at shift address change clerk. (Haylee GRIFFIN,Harvinder Trinidad) Differential Diagnoses I considered the following diagnoses in my evaluation of the patient: Hand-Off Endorsed To: Harvinder Coburn DO Endorsed Time: 0700 Pending: labs (Reed GRIFFIN,Cecilio Gambino) Initial ED EKG: pending (Harvinder Coburn DO) Departure Departure Condition: Stable Referrals: Uday Marina MD (PCP/Family) Departure Forms: Customer Survey General Discharge Information PA/GEOSCIENCE LABORATORY TECHNICIAN Co-Sign Statement Statement: ED Attending supervision documentation- [x] I saw and evaluated the patient. I have also reviewed all the pertinent lab results and diagnostic results. I agree with the findings and the plan of care as documented in the PA's/GEOSCIENCE LABORATORY TECHNICIAN's documentation. [] I have reviewed the ED Record and agree with the PA's/GEOSCIENCE LABORATORY TECHNICIAN's documentation. [] Additions or exceptions (if any) to the PAs/GEOSCIENCE LABORATORY TECHNICIAN's note and plan are summarized below: [] (Haylee GRIFFIN,Harvinder Trinidad) Departure Disposition: STILL A PATIENT Clinical Impression Primary Impression: Alteration consciousness Secondary Impressions: Hypernatremia (Harvinder Coburn DO) Critical Care Note Critical Care Note Critical Care Time: non-applicable (Harvinder Coburn DO) ED Attending Observation Initial Observation Note: I have seen and personally examined TEE PARISI on 07/28/17 at 1946. I agree with the current emergency department documentation. The disposition (admission or discharge) is uncertain at this time, he needs a period of observation for the following reason(s): Patient has significant hyponatremia and is at risk of altered mental status, seizures and other deterioration clinically. Disposition is uncertain and will be based on the patient's response to IV hydration. Repeat sodium should be obtained after treatment. The ED Nurse caring for this patient has been personally informed as to what the patient is being observed for. (Haylee GRIFFIN,Harvinder Trinidad) Observation Re-Evaluation: I have reevaluated TEE PARISI on 07/28/17 at 2259. The physical findings that support the continued need to observe this patient include [patient received gentle hydration with D5 half-normal saline at 75 mL an hour. We'll continue to closely monitor given his history of CHF with an ejection fraction of 35%. Currently his lungs are clear to auscultation bilaterally.]. (Reed GRIFFIN,Cecilio Gambino) Observation Discharge: I have reevaluated TEE PARISI on 07/29/17 at 0907. The patient is: (): Stable for discharge ([x]): To be admitted to Nursing Floor (): To be placed in Observation on Nursing Floor (): For transfer to other facility The patient was being observed for As a result of that observation, I have determined . 07/29/17 9 AM The patient remains confused. After IV fluids his serum sodium has increased slightly 149. He is therefore being admitted to the hospital for further care. The case was discussed with Dr. Calhoun My rationale for admission is that he is having ongoing confusion, is unsafe for discharge, and has been refractory to initial treatment performed while in observation. (Harvinder Coburn DO)
--- NOTE | 2017-07-28 21:50 | Cons- Medical ---
Sierra Lopez 07/28/17 2147: General Information and HPI Consulting Request Date of Consult: 07/28/17 Requested By: Haylee GRIFFIN,Harvinder Trinidad Reason for Consult: Hypernatremia Source of Information: patient, family, old records Exam Limitations: dementia, poor historian History of Present Illness: 89-year-old gentleman with past medical history of Alzheimer dementia, CAD, Aortic stenosis, hypertension, hyperlipidemia,Legally blind, , Who was recently admitted to [facility] for new onset A. fib and CHF with EF of 35% and was discharged to [facility], was brought back to the hospital with chief complaint of elevated sodium level and lethargy. Medical consultations was placed by ED staff for evaluation And treatment of hypernatremia. information was obtained from old records, patient's family members and minimally patient himself. According to the family patient functional status has declined since his recent admission in the hospital and he has never recovered to his previous baseline. In the [facility], he was able to eat all of his foot given by the family members for 2 days and weekends.However,Looking at the medical records in the hospital showed that patient had poor oral intake in the hospital and also his regimen is changed to Pure and nectar thick diet as well.According to the ED staff and notes from the [facility], patient was lethargic and less responsive today and the sodium in the morning was 152 and he was brought to the hospital for management of hypernatremia. Patient is lethargic but arousable, he is sporadically answers to the questions and follows commands. At the moment patient denied any chest pain, nausea, diarrhea, constipation however he reproted lower abdominal mild tenderness.Rest of the ROS was unfeasible due to patient's condition. It should be noted that patient was put on 20 mg Lasix by mouth CHF management in the hospital. Labs are notable for urine osmolality 899, serum osmolality 316, sodium 148, chloride 111, BUN 24 Allergies/Medications Allergies: Coded Allergies: adhesive (UNKNOWN 12/05/15) Home Med List: Aspirin (Ecotrin*) 81 MG TABLET.DR 1 TAB PO DAILY HEART HEALTH (Reported) Atorvastatin Calcium 40 MG TABLET 1 TAB PO DAILY CHOLESTEROL (Reported) Clopidogrel Bisulfate (Plavix) 75 MG TABLET 75 MG PO DAILY coronary artery disease Cyanocobalamin (Vitamin B-12) 1,000 MCG TABLET 1 TAB PO DAILY VITAMIN SUPPORT (Reported) Diltiazem HCl (Cardizem) 30 MG TABLET 1 TAB PO Q6 heart rate Folic Acid 1 MG TABLET 1 TAB PO DAILY VITAMIN SUPPORT (Reported) Furosemide 20 MG TABLET 20 MG PO DAILY diuresis Isosorbide Mononitrate (Isosorbide Mononitrate ER) 30 MG TAB.ER.24H 1 TAB PO DAILY HEART (Reported) Lisinopril 10 MG TABLET 1 TAB PO DAILY BP (Reported) Nitroglycerin (Nitrostat) (Unknown Strength) TAB.SUBL 0.3 MG SL AD PRN HEART (Reported) 1st sign of attack; may repeat every 5 minutes until relief; if pain persists after 3 tablets in 15 minutes, prompt medical att Omeprazole 20 MG TABLET.DR 1 TAB PO DAILY gastric protection Phenytoin Sodium Extended 100 MG CAPSULE 1 CAP PO BID SEIZURES (Reported) Risperidone 0.25 MG TABLET 1 TAB PO 4 TIMES/DAY PRN AGITAT/HALLUCINATION/ IRRITABIL Vit C/E/Zn/Coppr/Lutein/Zeaxan (Preservision Areds 2 Softgel) 250-200-40 CAPSULE 1 CAP PO BID EYE (Reported) Current Medications: Current Medications Sig/Karel Start time Last Medication Dose Route Stop Time Status Admin Aspirin Buffered 81 MG DAILY 07/29 899 AC PO Atorvastatin Calcium 40 MG 1700 07/29 1700 AC PO Clopidogrel Bisulfate 75 MG DAILY 07/29 899 AC PO Dextrose/Sodium 1,000 ML Q13H 07/28 2145 UNVr Chloride IV Diltiazem HCl 30 MG Q6 07/28 2359 AC PO Donepezil HCl 5 MG DAILY 07/29 899 AC PO Furosemide 20 MG DAILY 07/29 09 AC PO Isosorbide 30 MG DAILY 07/29 0900 AC Mononitrate PO Lisinopril 10 MG DAILY 07/29 0900 AC PO Phenytoin 100 MG BID 07/28 2100 AC PO Risperidone 0.25 MG 4 TIMES/DAY PRN 07/28 2000 AC PO Sodium Chloride 1,000 ML BOLUS ONE 07/28 1600 DC 07/28 IV 07/28 1759 1604 Review of Systems Review of Systems Constitutional: Reports: see HPI. 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 spouse Services at Home: None Primary Language: Yoruba Smoking Status: Unknown If Ever Smoked Functional Ability ADLs Independent: dressing, eating, toileting, bathing. Ambulation: independent IADLs Needs Assist: shopping, housework, finances, food prep, telephone, transportation, medication admin. Exam & Diagnostic Data Last 24 Hrs of Vital Signs/I&O Vital Signs Date Time Temp Pulse Resp B/P B/P Pulse O2 O2 Flow FiO2 Mean Ox Delivery Rate 07/28 2000 66 18 112/61 95 Nasal 1.5L Cannula 07/28 1724 99.6 74 16 114/57 94 Nasal 1.5L Cannula 07/28 1548 99.2 66 20 120/58 94 Nasal 2.0L Cannula Physical Exam General Appearance: no apparent distress, confused and disoriented with closed eyes but opens on command Head: atraumatic Eyes: Bilateral: other (non reactive to light). Cardiovascular: systolic murmur, irregularly irregular Gastrointestinal: normal bowel sounds, soft, tenderness (mild in lower abdomen) Extremities: no edema Last 24 Hrs of Labs/Carlos A: . Assessment/Plan Assessment/Plan 89-year-old gentleman with past medical history of Alzheimer dementia, CAD, Aortic stenosis, hypertension, hyperlipidemia,Legally blind, , Who was recently admitted to [facility] for new onset A. fib and CHF with EF of 35% and was discharged to [facility], was brought back to the hospital with chief complaint of elevated sodium level and lethargy. Medical consultations was placed by ED staff for evaluation And treatment of hypernatremia. Looking at the medical records in the hospital showed that patient had poor oral intake in the hospital and also his regimen is changed to Pure and nectar thick diet as well. He was also put on 20 mg Lasix by mouth for CHF management Initial sodium in the [facility] 152. Labs are notable for urine osmolality 899, serum osmolality 316, sodium 148, chloride 111, BUN 24 Patient received 1 L of of normal saline in the ED Assessment History of Alzheimer's dementia lethargy Oral intake intake Hypernatremia History of A. fib Artery stenosis with CHF and EF of 35% Plan Observation in ED Give patient 500 ml D5 half normal saline 75 mL per hour Check electrolytes in the morning Do bladder scan to assess postvoid residual volume Changes of risperidone 0.25 to twice a day by mouth PRN DC lasix Encourage oral intake OT/PT eval Management of the rest of the medical issues per ED physician DVT prophylaxis all-time Problem List: 1. Alzheimer's dementia with behavioral disturbance Consult Acknowledgment - Thank you for your consult request. Remi Savage 07/28/17 6234: Assessment/Plan Consult Acknowledgment - Thank you for your consult request. Attending MD Review Statement Attending Statement Attending MD Statement: examined this patient, discuss w/resident/PA/SERVICE DESK MANAGER, agreed w/resident/PA/SERVICE DESK MANAGER, discussed with family, reviewed EMR data (avail), reviewed images, amended to note Attending Assessment/Plan: CC: Hypernatremia PMH: Dementia, CAD, HTN, HLD, seizure disorder, new onset A. fib, moderate to severe aortic stenosis. Patient was admitted from July 17 to July 25 for confusion, acute changes in mental status, at that time he was considered to have aspiration pneumonia and was treated with Unasyn. Swallow evaluation was done and patient was discharged on pured and nectar thick diet. In the same hospitalization patient was also found to have new onset A. fib. He also had NSTEMI, he was discharged on dual antiplatelet agent. For his moderate to severe aortic stenosis and HFrEF, Lasix 20 mg by mouth daily was started. Since discharge patient's functionality did not improve as expected, his appetite was less and this morning he appeared more drowsy and lethargic so BMP was obtained in [facility] which showed hypernatremia and patient was sent to ER. Patient is alert, talks irrelevant, no appropriate response, does not follow instructions. He appears dehydrated but otherwise examination unremarkable except mild abdominal distention in the lower aspect probably bladder distention and harsh systolic murmur in aortic area. I think hypernatremia is secondary to dehydration in the setting of low by mouth intake and newly added Lasix. Even at the time of discharge when reviewed the dietary chart patient was eating 15-20% of the portions. According to this is acute decline at the time of his previous hospitalization. Even though Lasix may benefit his heart failure, he has moderate to severe aortic stenosis and Lasix may not benefit in that situation as well as it may be causing his dehydration causing lethargy as well as hypernatremia, hyperchloremia and metabolic alkalosis. We will also decrease the dose of risperidone from 0.25 mg 4 times a day to 0.25 mg 2 times a day, for mental status changes. Given that patient is on by mouth Lasix urine electrolytes and osmolality may not be beneficial at this point. We suggest bladder scan and straight cath if required, continue gentle hydration with D5 half normal saline at 75 mL for 500 ml. Patient's sodium was 152 this morning which improved to 148 after 1 L normal saline bolus in ER. Check BEP in a.m , OT PT evaluation. Discussed plan with patient's family.
--- NOTE | 2017-07-29 09:48 | History & Physical ---
Marisa GRIFFIN,[facility] 07/29/17 0940: General Information and HPI MD Statement: I have seen and personally examined TEE PARISI and documented this H&P. The patient is a 89 year old M who presented with a patient stated chief complaint of [lethargy and hyponatremia]. Source of Information: patient, family, old records Exam Limitations: dementia, poor historian History of Present Illness: Patient is 89-year-old male male with past medical history significant for Alzheimer dementia, CAD with recent type II ID on dual antibiotic, CHF EF 35% was recently started on lasix 20 mg daily, moderate aortic stenosis, new onset atrial fibrillation not on anticoagulation for history of hematuria and high risk bleeding, hypertension, hyperlipidemia, seziure, Legally blind, recently discharged from [facility] on July 25 after was treated for aspiration pneumonia, and type II ID was transferred to [facility]. Patient was transferred back to hospital for progressive lethargy and confusion and was found to have hypernatremia. As per Family ([id number] and granddaughter) at baseline patient is active, able to communicate however has dementia. Last seen in normal regular state of health was Thursday, patient was able to have breakfast independently, and participate in physical therapy. started to be lethargic and drowsy. They denied any complaint of chest pain, difficulty breathing, cough, fever, diarrhea. Patient was kept as an ED OBS 80 over Over the last 24 hours, patient received 1 bolus of normal saline in the ED followed by 500 cc of D5 half-normal running at 75, bag still running, Na this morning 149 up from 148. Patient has poor urine output only 100 cc over the last 24 hours with normal kidney function. Continue to be confused and lethargic. Family at bedside. Patient was unable to answer any question as he was mumbling to verbal stimulus. 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 spouse Services at Home: None Primary Language: Malay Smoking Status: Unknown If Ever Smoked Functional Ability ADLs Independent: dressing, eating, toileting, bathing. Ambulation: independent IADLs Needs Assist: shopping, housework, finances, food prep, telephone, transportation, medication admin. Review of Systems Review of Systems Constitutional: Reports: see HPI. Neurological/Psychological: Reports: confusion, dementia. Exam & Diagnostic Data Last 24 Hrs of Vital Signs/I&O Vital Signs Date Time Temp Pulse Resp B/P B/P Pulse O2 O2 Flow FiO2 Mean Ox Delivery Rate 07/29 921 98.0 62 20 115/58 07/29 0922 98.0 62 20 115/58 07/29 0826 98.0 62 20 115/58 95 Nasal 2.0L Cannula 07/29 0621 98.4 69 20 128/63 07/29 0605 98.4 69 20 128/63 95 Nasal 2.0L Cannula 07/29 0358 97.7 66 18 109/59 97 Nasal 2.0L Cannula 07/28 2001 66 18 112/61 95 Nasal 1.5L Cannula 07/28 1724 99.6 74 16 114/57 94 Nasal 1.5L Cannula 07/28 1548 99.2 66 20 120/58 94 Nasal 2.0L Cannula Intake & Output 07/29 1600 07/29 0800 07/29 0000 Intake Total 1000 Output Total 100 Balance -100 1000 Intake, IV 1000 Output, Urine 100 Physical Exam General Appearance No Acute Distress, SLEEPING, RESPONSE TO VERBAL STIMULI Skin No Rashes Skin Temp/Moisture Exam: Warm/Dry HEENT Atraumatic, PERRLA Neck Supple Cardiovascular Normal S1, Normal S2, irregular irregular Lungs Clear to Auscultation, Normal Air Movement Abdomen Normal Bowel Sounds, Soft, No Tenderness Extremities No Clubbing, No Cyanosis, No Edema, Normal Pulses Assessment/Plan Assessment: Patient is 89-year-old male male with past medical history significant for Alzheimer dementia, CAD with recent type II ID on dual antibiotic, CHF EF 35% was recently started on lasix 20 mg daily, moderate aortic stenosis, new onset atrial fibrillation not on anticoagulation for history of hematuria and high risk bleeding, hypertension, hyperlipidemia, Legally blind, recently discharged from [facility] on July 25 after was treated for aspiration pneumonia, and type II ID was transferred to [facility]. Patient was transferred back to hospital for progressive lethargy and confusion and was found to have hypernatremia. Problem list Hyponatremia Lethargy Atrial fibrillation not on anticoagulation Congestive heart failure Alzheimer disease Hyperlipidemia, hypertension Plan -Admit to general medical floor -Vitals every shift -Calculated free water deficit is 1 L to bring the sodium to 145. Please give 1 L of D5 half-normal running at 100 mL/h -Repeat BEP this evening 7 PM -Consider obtaining CBC to rule out infectious causes of lethargy -Consider obtaining flu swab -Monitor input and output, please obtain post voiding bladder scan for decreased urine output -Continue to hold Lasix -Continue rest of home medication as ordered -Wean off oxygen, maintain saturation above 90% -Consider repeating swallow evaluation, last evaluation recommend pure and nectar thick, absence of regular thin water participate in patient's hypernatremia in addition to having Lasix -To avoid hospital-acquired delirium, maintain circadian rhythm, consider moving patient to room with window, stimulate the patient to interact during daytime, maintain quiet environment during night time -Please follow attending note for final recommendations Diet pure and nectar heart healthy Code DNR/DNI, note that code was changed from last admission as it was full code after discussion with cardiology. Per [id number] who's her is POA, DNR/DNI documentation will be brought to the hospital and file. As Ranked By This Provider Problem List: 1. Hypernatremia 2. Alteration consciousness Core Measures/Misc (12/21) Acute Coronary Syndrome ACS Diagnosis: No Congestive Heart Failure Congestive Heart Failure Diagnosis No Cerebrovascular Accident CVA/TIA Diagnosis: No VTE (View Protocol) VTE Risk Factors Age>40 No Mechanical VTE Prophylaxis d/t N/A MechProphylax Ordered No VTE Pharm Prophylaxis d/t NA PharmProphylax ordered Sepsis (View protocol) Sepsis Present: No Nessa Samano MD 07/29/17 1156: General Information and HPI Allergies/Medications Home Med list Aspirin (Ecotrin*) 81 MG TABLET. 1 TAB PO DAILY HEART HEALTH (Reported) Atorvastatin Calcium 40 MG TABLET 1 TAB PO DAILY CHOLESTEROL (Reported) Clopidogrel Bisulfate (Plavix) 75 MG TABLET 75 MG PO DAILY coronary artery disease Cyanocobalamin (Vitamin B-12) 1,000 MCG TABLET 1 TAB PO DAILY VITAMIN SUPPORT (Reported) Diltiazem HCl (Cardizem) 30 MG TABLET 1 TAB PO Q6 heart rate Folic Acid 1 MG TABLET 1 TAB PO DAILY VITAMIN SUPPORT (Reported) Furosemide 20 MG TABLET 20 MG PO DAILY diuresis Isosorbide Mononitrate (Isosorbide Mononitrate ER) 30 MG TAB.ER.24H 1 TAB PO DAILY HEART (Reported) Lisinopril 10 MG TABLET 1 TAB PO DAILY BP (Reported) Nitroglycerin (Nitrostat) (Unknown Strength) TAB.SUBL 0.3 MG SL AD PRN HEART (Reported) 1st sign of attack; may repeat every 5 minutes until relief; if pain persists after 3 tablets in 15 minutes, prompt medical att Omeprazole 20 MG TABLET.DR 1 TAB PO DAILY gastric protection Phenytoin Sodium Extended 100 MG CAPSULE 1 CAP PO BID SEIZURES (Reported) Risperidone 0.25 MG TABLET 1 TAB PO 4 TIMES/DAY PRN AGITAT/HALLUCINATION/ IRRITABIL Vit C/E/Zn/Coppr/Lutein/Zeaxan (Preservision Areds 2 Softgel) 250-200-40 CAPSULE 1 CAP PO BID EYE (Reported) Attending MD Review Statement Attending Statement Attending MD Statement: examined this patient, discuss w/resident/PA/FRUIT LOADER MACHINE OPERATOR, agreed w/resident/PA/FRUIT LOADER MACHINE OPERATOR, reviewed EMR data (avail), discussed with nursing, reviewed images, amended to note Attending Assessment/Plan: 89 y/o M with pmh sig for Alzheimer dementia, CAD with recent type II ID on dual antibiotic, CHF EF 35% was recently started on lasix 20 mg daily, moderate aortic stenosis, new onset atrial fibrillation not on anticoagulation for history of hematuria and high risk bleeding, hypertension, hyperlipidemia, seziure, Legally blind, recently discharged from [facility] on July 25 after was treated for aspiration pneumonia, and type II ID was transferred to [facility]. Patient is sent in from the [facility] secondary to having hypernatremia that was found on the blood work. Patient himself has severe dementia therefore not able to provide any history. According to his W 10 patient was found to have a sodium level which was high on a routine blood work that's by the transferred to the [facility] was made. Patient was kept as an ED observation overnight and kept on IV fluids. Unfortunately sodium levels were not improving therefore decision was made to admit the patient this point. Vital Signs Date Time Temp Pulse Resp B/P B/P Pulse O2 O2 Flow FiO2 Mean Ox Delivery Rate 07/29 1144 98.0 64 20 108/58 94 Nasal 2.0L Cannula 07/29 1040 64 20 117/55 94 Nasal 2.0L Cannula 07/29 0922 98.0 62 20 115/58 07/29 0922 98.0 62 20 115/58 07/29 0826 98.0 62 20 115/58 95 Nasal 2.0L Cannula 07/29 0621 98.4 69 20 128/63 07/29 0605 98.4 69 20 128/63 95 Nasal 2.0L Cannula 07/29 0358 97.7 66 18 109/59 97 Nasal 2.0L Cannula 07/28 2001 66 18 112/61 95 Nasal 1.5L Cannula 07/28 1724 99.6 74 16 114/57 94 Nasal 1.5L Cannula 07/28 1548 99.2 66 20 120/58 94 Nasal 2.0L Cannula on exam; awake, nad. cv; s1,s2, rrr with some PVCs. resp: clear abd; soft, nt bs+ ext: no edema Laboratory Tests 07/29 07/28 07/28 0632 2134 2134 Chemistry Sodium (137 - 145 mmol/L) 149 H Potassium (3.5 - 5.1 mmol/L) 4.0 Chloride (98 - 107 mmol/L) 112 H Carbon Dioxide (22 - 30 mmol/L) 25 Anion Gap (5 - 16) 12 BUN (9 - 20 mg/dL) 20 Creatinine (0.7 - 1.2 mg/dL) 0.7 Estimated GFR (>60 ml/min) > 60 BUN/Creatinine Ratio (7 - 25 %) 28.6 H Glucose (65 - 99 mg/dL) 132 H Calcium (8.4 - 10.2 mg/dL) 8.9 Urines Urine Color (YEL,AMB,STR) YEL Urine Clarity (CLEAR) CLEAR Urine pH (5.0 - 8.0) 6.5 Ur Specific [place] (1.001 - 1.035) 1.025 Urine Protein (NEG,<30 MG/DL) TRACE H Urine Ketones (NEG) NEG Urine Nitrite (NEG) NEG Urine Bilirubin (NEG) NEG Urine Urobilinogen (0.1 - 1.0 EU/dl) 0.2 Ur Leukocyte Esterase (NEG) NEG Ur Microscopic SEDIMENT EXAMINED Urine RBC (0 - 5 /HPF) 3-5 Urine WBC (0 - 2 /HPF) RARE Ur Epithelial Cells (NONE,FEW) RARE Urine Bacteria (NEG/NONE) RARE H Urine Mucus (FEW,NONE) FEW Urine Hemoglobin (NEG) TRACE-INTACT H Urine Osmolality (300 - 1000 MOSM/KG) 899 Ur Random Creatinine (mg/dL) 119.9 Ur Random Sodium (30 - 90 mmol/L) 211 H Ur Random Potassium (mmol/L) 42.0 Fraction Sodium Excret (<1% %) 1.0 Urine Glucose (N MG/DL) NEG 07/28 1815 Chemistry Sodium (137 - 145 mmol/L) 148 H Potassium (3.5 - 5.1 mmol/L) 3.7 Chloride (98 - 107 mmol/L) 111 H Carbon Dioxide (22 - 30 mmol/L) 30 Anion Gap (5 - 16) 8 BUN (9 - 20 mg/dL) 24 H Creatinine (0.7 - 1.2 mg/dL) 0.8 Estimated GFR (>60 ml/min) > 60 BUN/Creatinine Ratio (7 - 25 %) 30.0 H Glucose (65 - 99 mg/dL) 113 H Serum Osmolality (285 - 295 MOSM/KG) 316 H Calcium (8.4 - 10.2 mg/dL) 8.6 A/P: 89 y/o M with pmh sig for Alzheimer dementia, CAD with recent type II ID on dual antibiotic, CHF EF 35% was recently started on lasix 20 mg daily, moderate aortic stenosis, new onset atrial fibrillation not on anticoagulation for history of hematuria and high risk bleeding, hypertension, hyperlipidemia, seziure, Legally blind with recent admission to [facility] respiration ammonia, type II ID and was discharged on Lasix now admitted with hyponatremia likely secondary to dehydration. Patient was kept as an ED observation overnight but secondary to sodium levels not improving, decision was made to bring patient in to gen med OBS. Patient has been started on IV fluids. We'll continue the fluids and continue to monitor sodium. Please check EKG. Will hold Lasix. We'll continue the patient on his other medications. His Risperdal dose has been decreased because patient was found to be lethargic. ID with that and will reevaluate the dosing during the hospital course. Continue other home meds including cardiac medications. DVT prophylaxis: Heparin subcutaneous. Patient is DNR/I.
--- NOTE | 2017-07-29 09:49 | PN- Medicine Consult ---
Assessment/PlanMedical Consult Assessment/Plan Assessment: Patient is 89-year-old male male with past medical history significant for Alzheimer dementia, CAD with recent and NSTEMI on dual antibiotic, CHF EF 35% was recently started on lasix 20 mg daily, moderate aortic stenosis, hypertension, hyperlipidemia, Legally blind, recently discharged from [facility] on July 25 after was treated for aspiration pneumonia, new onset atrial fibrillation and an STEMI was transferred to [facility]. Patient was transferred back to hospital for progressive lethargy and confusion and was found to have hyponatremia. Over the last 24 hours, patient received 1 bolus of normal saline in the ED followed by 500 cc of D5 half-normal running at 75, bag still running, Na this morning 149 up from 148. Patient has poor urine output only 100 cc over the last 24 hours with normal kidney function. Continue to be confused and lethargic. Family at bedside. Patient was unable to answer any question as he was mumbling to verbal stimulus. As per Family at baseline patient is active, able to communicate however has dementia with memory issues. Last seen in normal regular state of health was Thursday, patient was able to have breakfast independently, and participate in physical therapy. started to be lethargic and drowsy. Plan: -Calculated free water deficit is 1 L to bring the sodium to 145. Please give 1 L of D5 half-normal running at 100 mL/h -Repeat BEP this evening -Consider obtaining CBC to rule out infectious causes of lethargy -Consider obtaining flu swab -Monitor input and output, please obtain post voiding bladder scan for decreased urine output -Continue to hold Lasix -Continue rest of home medication as ordered -Consider repeating swallow evaluation, last evaluation recommend pure and nectar thick, absence of regular thin water participate in patient's hypernatremia in addition to having Lasix -To avoid hospital-acquired delirium, maintain circadian rhythm, consider moving patient to room with window, stimulate the patient to interact during daytime, maintain quiet environment during night time -Please follow attending note for final recommendations
--- NOTE | 2017-07-29 11:55 | RADIOLOGY REPORT ---
EXAMINATION:\H\ \N\XR CHEST CLINICAL INFORMATION: Hypoxia. Altered mental status. COMPARISON: 07/22/2017 TECHNIQUE: Frontal view of the chest was obtained. FINDINGS: Lung volumes are low. Hazy opacities are seen at both lung bases. Likely small pleural effusions. Overall the appearance is fairly similar to prior. Persistent central vascular prominence with mild interstitial prominence. No pneumothorax. The cardiomediastinal silhouette is unchanged. IMPRESSION: No significant change in appearance from the prior study. Likely small pleural effusions with basilar airspace opacities. Mild interstitial edema.
[2017-07-29 14:52] LABS: ABSOLUTE BASOPHIL COUNT 0 /CUMM (0.0-0.2); ABSOLUTE EOSINOPHIL COUNT 0.3 /CUMM (0.0-0.7); ABSOLUTE GRANULOCYTE CT 10.2 /CUMM (1.4-6.5); ABSOLUTE LYMPH COUNT 1.1 /CUMM (1.2-3.4); ABSOLUTE MONOCYTE COUNT 0.9 /CUMM (0.10-0.60); BASOPHIL % 0.3 % (0.0-2.0); EOSINOPHIL % 2.1 % (0-5); GRANULOCYTE % 81.8 % (42.2-75.2); HEMATOCRIT 37.1 % (42-52); MEAN CORPUSCULAR HGB 29.7 PG (27.0-31.0); MEAN CORPUSCULAR HGB CONC 34.3 G/DL (33.0-37.0); MEAN CORPUSCULAR VOLUME 86.5 FL (80.0-94.0); MEAN PLATELET VOLUME 8.4 FL (7.4-10.4); PLATELET COUNT 309 /CUMM (130-400); RED BLOOD CELL CT 4.29 /CUMM (4.70-6.10); WHITE BLOOD CELL COUNT 12.4 /CUMM (4.8-10.8)
[2017-07-29 15:00] VITALS: BP 110/58
[2017-07-29 22:08] VITALS: BP 102/60
[2017-07-30 00:08] VITALS: BP 124/60
[2017-07-30 06:42] VITALS: BP 124/60
--- NOTE | 2017-07-30 07:11 | PN- Housestaff ---
Subjective Follow-up For: Hypernatremia Complaints: pt unable to provide hx Subjective: Patient was seen and examined at bedside. He has dementia at baseline and unable to offer complaints. He does not appear to be in any acute distress. Review of Systems Constitutional: Reports: no symptoms. Objective Last 24 Hrs of Vital Signs/I&O Vital Signs Date Time Temp Pulse Resp B/P B/P Pulse O2 O2 Flow FiO2 Mean Ox Delivery Rate 07/30 0642 97.6 70 20 124/60 94 Nasal 2.0L Cannula 07/30 0552 76 18 124/60 07/30 0014 99.0 100 20 124/60 07/30 0008 100 22 124/60 90 Nasal 2.0L Cannula 07/30 0000 92 Nasal 3.0L Cannula 07/29 2208 99.0 60 20 102/60 91 Nasal 2.0L Cannula 07/29 1814 68 98/60 07/29 1523 97.7 60 20 07/29 1500 97.7 60 20 110/58 92 07/29 1443 Nasal 2.0L Cannula 07/29 1326 98.6 76 18 103/56 98 Nasal 2.0L Cannula 07/29 1144 98.0 64 20 108/58 94 Nasal 2.0L Cannula 07/29 1040 64 20 117/55 94 Nasal 2.0L Cannula 07/29 0922 98.0 62 20 115/58 07/29 0922 98.0 62 20 115/58 07/29 0826 98.0 62 20 115/58 95 Nasal 2.0L Cannula Intake & Output 07/30 0800 07/30 0000 07/29 1600 Intake Total 240 1005 Output Total Balance 240 1005 Intake, IV 525 Intake, Oral 240 480 Number 1 Bowel Movements Patient 141 lb Weight Physical Exam General Appearance: Mild Distress, awake, alert Skin: No Rashes, No Breakdown Skin Temp/Moisture Exam: Warm/Dry Sepsis Skin Exam (color): Normal for Ethnicity HEENT: Atraumatic Cardiovascular: Normal S1, Normal S2, AMADOR Lungs: Clear to Auscultation, Normal Air Movement Abdomen: Soft, No Tenderness Neurological: Normal Speech Extremities: No Edema Assessment/Plan Problem List: 1. Hypernatremia Pain Ratin Pain Location: none Pain Goal: Remain pain free Pain Plan: none Tomorrow's Labs & Rationales: CBC, BEP
[2017-07-30 08:23] LABS: ABSOLUTE BASOPHIL COUNT 0 /CUMM (0.0-0.2); ABSOLUTE EOSINOPHIL COUNT 0.2 /CUMM (0.0-0.7); ABSOLUTE GRANULOCYTE CT 10.1 /CUMM (1.4-6.5); ABSOLUTE LYMPH COUNT 0.9 /CUMM (1.2-3.4); ABSOLUTE MONOCYTE COUNT 0.8 /CUMM (0.10-0.60); BASOPHIL % 0.4 % (0.0-2.0); EOSINOPHIL % 1.3 % (0-5); HEMATOCRIT 39.3 % (42-52); MEAN CORPUSCULAR HGB 28.8 PG (27.0-31.0); MEAN CORPUSCULAR HGB CONC 33.2 G/DL (33.0-37.0); MEAN CORPUSCULAR VOLUME 86.8 FL (80.0-94.0); MEAN PLATELET VOLUME 8.5 FL (7.4-10.4); RBC DISTRIBUTION WIDTH 13.9 % (11.5-14.5); RED BLOOD CELL CT 4.52 /CUMM (4.70-6.10); WHITE BLOOD CELL COUNT 11.9 /CUMM (4.8-10.8)
[2017-07-30 09:15] LABS: GRANULOCYTE % 84.4 % (42.2-75.2); PLATELET COUNT 274 /CUMM (130-400)
--- NOTE | 2017-07-30 09:27 | PN-Observation ---
Andres GRIFFIN,[facility] 07/30/17 0927: Observation Note Observation Note _ I have personally examined TEE PARISI. him disposition is uncertain at this time. Before a determination can be made, he requires continued observation for the following reasons [stable to be discharged back to facility today]. Assessment/Plan Medical Assessment: 89-year-old male male with PMH of Alzheimer dementia, hypertension, hyperlipidemia, seziure, legal blindness, atrial fibrillation not on anticoagulation, CAD, CHF with of EF 35%, recently discharged from [facility] on July 25 after was treated for aspiration pneumonia was sent to the ER after he was found to have high sodium levels on labs. Assessment: 1. Hypernatremia 2. History of CHF 3. History of A.fib not on AC 4. History of Alzheimer's dementia Plan: * His sodium levels have trended down to normal today. He has improved well on IV fluids. * He can be discharged back to the facility. * He will need adequate hydration especially since he is on Lasix, despite a small dose. Should receive atleast 250ml free water q6 orally. This has been included in his discharge instructions. * Will discontinue his Donepezil as benefit is limited in his condition. * Continue all other home medications. * Diet: Regular. Puree and [place] thick consistency * DVT Prophylaxis: SC Heparin x 3 * Code: DNR/DNI Problem List: 1. Hypernatremia Subjective Follow-up For: Hypernatremia Complaints: pt unable to provide hx Subjective: Patient was seen and examined at bedside. He has dementia at baseline and unable to offer complaints. He does not appear to be in any acute distress. Review of Systems Constitutional: Reports: no symptoms. Objective Last 24 Hrs of Vital Signs/I&O Vital Signs Date Time Temp Pulse Resp B/P B/P Pulse O2 O2 Flow FiO2 Mean Ox Delivery Rate 07/30 1154 97.6 66 20 124/66 07/30 0853 66 124/66 07/30 0852 66 124/64 07/30 0800 Nasal 2.0L Cannula 07/30 0642 97.6 70 20 124/60 94 Nasal 2.0L Cannula 07/30 0552 76 18 124/60 07/30 0014 99.0 100 20 124/60 07/30 0008 100 22 124/60 90 Nasal 2.0L Cannula 07/30 0000 92 Nasal 3.0L Cannula 07/29 2208 99.0 60 20 102/60 91 Nasal 2.0L Cannula 07/29 1814 68 98/60 07/29 1523 97.7 60 20 07/29 1500 97.7 60 20 110/58 92 07/29 1443 Nasal 2.0L Cannula 07/29 1326 98.6 76 18 103/56 98 Nasal 2.0L Cannula Intake & Output 07/30 1600 07/30 0800 07/30 0000 Intake Total 240 1005 Output Total Balance 240 1005 Intake, IV 525 Intake, Oral 240 480 Physical Exam General Appearance: Alert, Mild Distress, awake Skin: No Rashes, No Breakdown Skin Temp/Moisture Exam: Warm/Dry Sepsis Skin Exam (color): Normal for Ethnicity HEENT: Atraumatic Cardiovascular: Normal S1, Normal S2, No Murmurs Lungs: Clear to Auscultation, Normal Air Movement Abdomen: Soft, No Tenderness Neurological: Normal Speech Extremities: No Edema Last 24 Hrs of Labs/Mics: Laboratory Tests 07/30/17 0745: Anion Gap 12, Estimated GFR > 60, BUN/Creatinine Ratio 26.7 H, CBC w Diff NO MAN DIFF REQ, RBC 4.52 L, MCV 86.8, MCH 28.8, MCHC 33.2, RDW 13.9, MPV 8.5, Gran % 84.4 H, Lymphocytes % 7.4 L, Monocytes % 6.5, Eosinophils % 1.3, Basophils % 0.4, Absolute Granulocytes 10.1 H, Absolute Lymphocytes 0.9 L, Absolute Monocytes 0.8 H, Absolute Eosinophils 0.2, Absolute Basophils 0 07/29/17 1406: Anion Gap 11, Estimated GFR > 60, BUN/Creatinine Ratio 25.7 H, CBC w Diff NO MAN DIFF REQ, RBC 4.29 L, MCV 86.5, MCH 29.7, MCHC 34.3, RDW 14.0, MPV 8.4, Gran % 81.8 H, Lymphocytes % 8.5 L, Monocytes % 7.3, Eosinophils % 2.1, Basophils % 0.3, Absolute Granulocytes 10.2 H, Absolute Lymphocytes 1.1 L, Absolute Monocytes 0.9 H, Absolute Eosinophils 0.3, Absolute Basophils 0 Nessa Samano MD 07/30/17 1029: Observation Note Observation Note _ I have personally examined TEE PARISI. him disposition is uncertain at this time. Before a determination can be made, he requires continued observation for the following reasons. Patient seen and examined, not able to communicate well 2/2 to advanced dementia. Na levels are better. Vital Signs Date Time Temp Pulse Resp B/P B/P Pulse O2 O2 Flow FiO2 Mean Ox Delivery Rate 07/30 0853 66 124/66 07/30 0852 66 124/64 07/30 0642 97.6 70 20 124/60 94 Nasal 2.0L Cannula 07/30 0552 76 18 124/60 07/30 0014 99.0 100 20 124/60 07/30 0008 100 22 124/60 90 Nasal 2.0L Cannula 07/30 0000 92 Nasal 3.0L Cannula 07/29 2208 99.0 60 20 102/60 91 Nasal 2.0L Cannula 07/29 1814 68 98/60 07/29 1523 97.7 60 20 07/29 1500 97.7 60 20 110/58 92 07/29 1443 Nasal 2.0L Cannula 07/29 1326 98.6 76 18 103/56 98 Nasal 2.0L Cannula 07/29 1144 98.0 64 20 108/58 94 Nasal 2.0L Cannula 07/29 1040 64 20 117/55 94 Nasal 2.0L Cannula on exam; awake, nad. cv; s1,s2, rrr, + systolic murmur. resp; decreased bs at bases. abd; soft, nt, bs+ ext; no edema Laboratory Tests 07/30 07/29 0745 1406 Chemistry Sodium (137 - 145 mmol/L) 142 146 H Potassium (3.5 - 5.1 mmol/L) 4.2 4.0 Chloride (98 - 107 mmol/L) 106 108 H Carbon Dioxide (22 - 30 mmol/L) 24 28 Anion Gap (5 - 16) 12 11 BUN (9 - 20 mg/dL) 16 18 Creatinine (0.7 - 1.2 mg/dL) 0.6 L 0.7 Estimated GFR (>60 ml/min) > 60 > 60 BUN/Creatinine Ratio (7 - 25 %) 26.7 H 25.7 H Hematology CBC w Diff NO MAN DIFF REQ NO MAN DIFF REQ WBC (4.8 - 10.8 /CUMM) 11.9 H 12.4 H RBC (4.70 - 6.10 /CUMM) 4.52 L 4.29 L Hgb (14.0 - 18.0 G/DL) 13.0 L 12.7 L Hct (42 - 52 %) 39.3 L 37.1 L MCV (80.0 - 94.0 FL) 86.8 86.5 MCH (27.0 - 31.0 PG) 28.8 29.7 MCHC (33.0 - 37.0 G/DL) 33.2 34.3 RDW (11.5 - 14.5 %) 13.9 14.0 Plt Count (130 - 400 /CUMM) 274 309 MPV (7.4 - 10.4 FL) 8.5 8.4 Gran % (42.2 - 75.2 %) 84.4 H 81.8 H Lymphocytes % (20.5 - 51.1 %) 7.4 L 8.5 L Monocytes % (1.7 - 9.3 %) 6.5 7.3 Eosinophils % (0 - 5 %) 1.3 2.1 Basophils % (0.0 - 2.0 %) 0.4 0.3 Absolute Granulocytes (1.4 - 6.5 /CUMM) 10.1 H 10.2 H Absolute Lymphocytes (1.2 - 3.4 /CUMM) 0.9 L 1.1 L Absolute Monocytes (0.10 - 0.60 /CUMM) 0.8 H 0.9 H Absolute Eosinophils (0.0 - 0.7 /CUMM) 0.2 0.3 Absolute Basophils (0.0 - 0.2 /CUMM) 0 0 A/P; 89 y/o M with pmh sig for Alzheimer dementia, CAD with recent type II CO on dual antibiotic, CHF EF 35% was recently started on lasix 20 mg daily, moderate aortic stenosis, new onset atrial fibrillation not on anticoagulation for history of hematuria and high risk bleeding, hypertension, hyperlipidemia, seziure, Legally blind with recent admission to [facility] respiration ammonia, type II CO and was discharged on Lasix now placed on Gen med OBS for hypernatremia, likley 2/2 to combination of dehydration from less po intake as well as being on lasix. Sodium levels are back to normal. Patient has received IV fluids. Unfortunately patient's ejection fraction is very low and his chest x-ray did show some interstitial edema which was mild. We cannot completely stopped the Lasix. He is a very low dose but we will put on his paperwork on discharge instructions to give him a certain amount of water throughout the day. This will need to be followed by the snf staff. We have also decided to discontinue his Aricept as it is not making any difference in his dementia. Patient has advanced dementia. He is otherwise medically stable for discharge back to his snf today. His oxygen can be tapered over there.
--- NOTE | 2017-07-30 10:30 | Patient Discharge Instructions ---
Discharge Instructions General Discharge Information You were seen/treated for: Hypernatremia Special Instructions: Please follow up with your PCP within one week of discharge. Drink 250cc of water every 6 hours. Diet Continue normal diet: Yes Recommended Diet: Puree and nectar thick Activity Full Activity/No Limits: No Activity Self Limited: Yes Acute Coronary Syndrome Inclusion Criteria At DC or during hospital stay patient has or had the following: ACS DIAGNOSIS No Discharge Core Measures Meds if any: Prescribed or Continued at Discharge Meds if any: NOT Prescribed or Continued at Discharge Congestive Heart Failure Inclusion Criteria At DC or during hospital stay patient has or had the following: CHF DIAGNOSIS No Discharge Core Measures Meds if any: Prescribed or Continued at Discharge Meds if any: NOT Prescribed or Continued at Discharge Cerebrovascular accident Inclusion Criteria At DC or during hospital stay patient has or had the following: CVA/TIA Diagnosis No Discharge Core Measures Meds if any: Prescribed or Continued at Discharge Meds if any: NOT Prescribed or Continued at Discharge Venous thromboembolism Inclusion Criteria VTE Diagnosis No VTE Type NONE VTE Confirmed by (Test) NONE Discharge Core Measures - Per Current guidelines, there needs to be overlap - treatment for the first 5 days of Warfarin therapy. - If discharged on Warfarin prior to 5 days of - overlap therapy, the patient will need to be - assessed for post discharge needs including - *Post discharge parental anticoagulation - *Warfarin and/or parental anticoagulation education - *Follow up date to check INR post discharge At least 5 days overlap therapy as Inpatient No Meds if any: Prescribed or Continued at Discharge Note: Overlap Therapy is Warfarin and Anticoagulant Meds if any: NOT Prescribed or Continued at Discharge
[2017-07-30 11:54] VITALS: BP 124/66
== END 2017-07-30 13:14 ==
LOC: ERH 15:38 → ERHI 19:45 → 2NA 19:45 → ERHI 19:45 → EDBEDREQ 07-29 11:53 → ENRESERV 07-29 11:58 → 2NA 07-29 12:01 → ERHI 07-29 12:11 → ENRESERV 07-29 13:01 → ENTRNSPT 07-29 13:16 → EDTRNSPTSTS 07-29 13:21 → EDTRNSPT 07-29 13:21 → 2NA 07-29 13:31 → CMPTRNSPT 07-29 13:42 → ENPENDDIS 07-30 10:54 → 2NA 07-30 13:14
PROVIDERS: Student in an Organized Health Care Education/Training Program
DX: E87.0 Hyperosmolality and hypernatremia (principal); G30.9 Alzheimer's disease, unspecified; F02.81 Dementia in other diseases classified elsewhere, unspecified severity, with behavioral disturbance; I25.10 Atherosclerotic heart disease of native coronary artery without angina pectoris; I35.0 Nonrheumatic aortic (valve) stenosis; I48.91 Unspecified atrial fibrillation; I11.0 Hypertensive heart disease with heart failure; I50.22 Chronic systolic (congestive) heart failure; E78.5 Hyperlipidemia, unspecified; R56.9 Unspecified convulsions; H54.8 Legal blindness, as defined in USA; Z86.73 Personal history of transient ischemic attack (TIA), and cerebral infarction without residual deficits; Z79.82 Long term (current) use of aspirin; I21.A1 Myocardial infarction type 2
CPT/HCPCS: 1328; 1530; 1748; 6030; 84133; 84300; 36415; 36592; 71045; 81001; 82436; 82570; 87070; 96372; G0378; J1644; J3490; J7042

== ENCOUNTER 2017-09-08 16:27 | Inpatient (IN) | payer OTHER, MEDICARE ==
[~2017-09-08] VITALS: Ht 165.1 cm; Wt 61.0 kg
--- NOTE | 2017-09-08 16:41 | ED AMS/SEIZURE/WEAK/DIZZY ---
History of Present Illness General Chief Complaint: Altered Mental Status Stated Complaint: AMS Source: patient Exam Limitations: no limitations Vital Signs & Intake/Output Vital Signs & Intake/Output Vital Signs Date Time Temp Pulse Resp B/P B/P Pulse O2 O2 Flow FiO2 Mean Ox Delivery Rate 09/09 0654 55 126/63 09/09 0543 97.4 55 22 126/63 97 Room Air / 2345 97 Room Air / 2319 97.9 55 22 130/60 98 Room Air / 2246 98.0 71 16 146/83 98 Room Air / 2052 97.7 67 20 147/69 98 Room Air 09/08 1641 Room Air / 1640 97.2 84 20 153/79 100 Room Air ED Intake and Output 09/09 0000 09/08 1200 Intake Total 700 Output Total Balance 700 Intake, IV 700 Patient 125 lb Weight Weight Bed scale Measurement Method Allergies Coded Allergies: adhesive (UNKNOWN 12/05/15) Triage Nurses Notes Reviewed? yes Onset: Abrupt Duration: day(s): Timing: recent history Injury Environment: home No Modifying Factors: none HPI: 89-year-old male comes into the emergency room for further evaluation of increased weakness. Patient has a decreased appetite and not eating and drinking. His sodium level was reportedly elevated. There's been no reports of vomiting. He presented decline in his mental status over the last few months. (Mil Mckinley) Reconcile Medications Aspirin (Ecotrin*) 81 MG TABLET.DR 1 TAB PO DAILY HEART HEALTH (Reported) Atorvastatin Calcium 40 MG TABLET 1 TAB PO DAILY CHOLESTEROL (Reported) Clopidogrel Bisulfate (Plavix) 75 MG TABLET 75 MG PO DAILY coronary artery disease Cyanocobalamin (Vitamin B-12) 1,000 MCG TABLET 1 TAB PO DAILY VITAMIN SUPPORT (Reported) Diltiazem HCl (Cardizem) 30 MG TABLET 1 TAB PO Q6 heart rate Docusate Sodium (Stool Softener) 50 MG CAPSULE 2 TAB PO DAILY CONSTIPATION ( Reported) Donepezil HCl (Aricept) 5 MG TABLET 1 TAB PO QPM MENTAL HEALTH (Reported) Folic Acid 1 MG TABLET 1 TAB PO DAILY VITAMIN SUPPORT (Reported) Furosemide 20 MG TABLET 20 MG PO DAILY diuresis Isosorbide Mononitrate (Isosorbide Mononitrate ER) 30 MG TAB.ER.24H 1 TAB PO DAILY HEART (Reported) Lisinopril 10 MG TABLET 1 TAB PO DAILY BP (Reported) Nitroglycerin (Nitrostat) (Unknown Strength) TAB.SUBL 0.3 MG SL AD PRN HEART (Reported) 1st sign of attack; may repeat every 5 minutes until relief; if pain persists after 3 tablets in 15 minutes, prompt medical att Omeprazole 20 MG TABLET.DR 1 TAB PO DAILY gastric protection Phenytoin Sodium Extended 100 MG CAPSULE 2 CAP PO BID SEIZURES (Reported) Risperidone 0.25 MG TABLET 1 TAB PO BID PRN AGITAT/HALLUCINATION/IRRITABIL Sennosides (Senna) 8.6 MG TABLET 2 TAB PO BID CONSTIPATION (Reported) Vit C/E/Zn/Coppr/Lutein/Zeaxan (Preservision Areds 2 Softgel) 250-200-40 CAPSULE 1 CAP PO BID EYE (Reported) (Harvinder Coburn DO) Past History Travel History Traveled to [place] past 21 day No Medical History Any Pertinent Medical History? 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 No (Mil Mckinley) Review of Systems Review of Systems Constitutional: Reports: see HPI. EENTM: Reports: no symptoms. Respiratory: Reports: no symptoms. Cardiovascular: Reports: no symptoms. GI: Reports: no symptoms. Genitourinary: Reports: no symptoms. Musculoskeletal: Reports: no symptoms. Skin: Reports: no symptoms. Neurological/Psychological: Reports: see HPI. Hematologic/Endocrine: Reports: no symptoms. Immunologic/Allergic: Reports: no symptoms. All Other Systems: Reviewed and Negative (Mil Mckinley) Physical Exam Physical Exam General Appearance: lethargic, thin Head: atraumatic Ears, Nose, Throat: dry mucous membranes Neck: normal inspection Respiratory: no respiratory distress Gastrointestinal: soft Back: decreased range of motion Extremities: no pedal edema Neurologic/Psych: disoriented x 3 Skin: intact, normal color Core Measures CVA/TIA Diagnosis No Sepsis Present: No Sepsis Focused Exam Completed? No (Mil Mckinley) Core Measures ACS in differential dx? No (Harvinder Coburn DO) Progress Differential Diagnosis: arrythmia, anemia, benign positional vertigo, CVA/stroke , dehydration, drug intoxication, electrolyte imbalance, GI bleed, labrynthitis, pneumonia, presyncope, UTI/pyelo Plan of Care: Orders Procedure Date/time Status CBC WITHOUT DIFFERENTIAL 09/10 06 Active BASIC ELECTROLYTES PLUS BUN&CR 09/10 0600 Active Nothing by Mouth 09/09 B Active SODIUM 09/09 1400 Active SODIUM 09/09 0800 Complete Change service to 09/09 0738 Active CBC WITHOUT DIFFERENTIAL 09/09 0600 Complete SODIUM 09/09 0400 Complete URINE OSMOLALITY 09/09 0330 Complete SERUM OSMOLALITY 09/09 0030 Complete BASIC ELECTROLYTES PLUS BUN&CR 09/09 0000 Complete PT Evaluate & Treat 09/09 UNK Active Lab Add-on Test 09/09 UNK Active Precautions 09/09 UNK Active PHYSICIAN CONSULT 09/09 UNK Active SWALLOW EVALUATION 09/08 2342 Active Pathway - chart 09/08 2342 Active House Staff 09/08 2342 Active NUTRITIONAL CONSULT 09/08 2342 Active Weight 09/08 2315 Active Vital Signs 09/08 231 Complete Teach/Educate 09/08 2314 Active Pain Treatment and Response 09/08 2314 Active Nutritional Intake, Monitor 09/08 2314 Active Isolation 09/08 2315 Active Intake & Output 09/08 2315 Complete Patient Care Conference 09/08 2315 Active Activity/Ambulation 09/08 231 Complete Intake & Output 09/08 2246 Complete Patient Data 09/08 2142 Active Misc Message 09/08 1924 Active ED Holding Orders 09/08 1924 Active Admit to inpatient 09/08 1924 Active Vital Signs 09/08 192 Complete Vital Signs 09/08 1924 Active Code Status 09/08 1924 Complete Code Status 09/08 1924 Active Add-on Test (ER Only) 09/08 1718 Active B-TYPE NATRIURETIC PEP (BNP) 09/08 1705 Complete URINE LYTES, SPOT 09/08 1646 Complete URINALYSIS 09/08 164 Complete TROPONIN LEVEL 09/08 1645 Complete LACTIC ACID 09/08 1645 Complete COMPREHENSIVE METABOLIC PANEL 09/08 1645 Complete CBC WITHOUT DIFFERENTIAL 09/08 1645 Complete EKG 09/08 1645 Active Lab Add-on Test 09/08 UNK Active VTE Mechanical Prophylaxis 09/08 UNK Active Vital Signs 09/08 UNK Complete Intake & Output 09/08 UNK Active Activity/Ambulation 09/08 UNK Active Current Medications Sig/Karel Start time Last Medication Dose Stop Time Status Admin Enoxaparin Sodium 40 MG DAILY 09/09 1128 AC (Lovenox) Dextrose/Water 1,000 ML .Q10H 09/09 1045 AC 09/09 (Dextrose 5%) 1100 Aspirin Buffered 81 MG DAILY 09/09 0900 AC (Ecotrin) Clopidogrel Bisulfate 75 MG DAILY 09/09 09 AC (Plavix) Docusate Sodium 100 MG DAILY 09/09 0900 AC (Colace) Phenytoin 200 MG BID 09/09 0900 AC (Dilantin ER) Senna/Docusate Sodium 2 TAB DAILY 09/09 0900 AC (Senokot S) Omeprazole 40 MG DAILY AC 09/09 0700 AC (Prilosec) Diltiazem HCl 30 MG Q6 09/09 0600 AC (Cardizem) Sodium Chloride 1,000 ML BOLUS ONE 09/08 1800 CAN (Normal Saline 0.9%) 09/08 1859 Laboratory Tests 09/09/17 0910: 09/09/17 0600: Sodium Cancelled, Potassium Cancelled, Chloride Cancelled, Carbon Dioxide Cancelled, Anion Gap Cancelled, BUN Cancelled, Creatinine Cancelled, BUN/ Creatinine Ratio Cancelled 09/09/17 0345: CBC w Diff NO MAN DIFF REQ, RBC 4.59 L, MCV 85.7, MCH 28.5, MCHC 33.2, RDW 15.7 H, MPV 7.6, Gran % 75.7 H, Lymphocytes % 14.8 L, Monocytes % 8.4, Eosinophils % 0.9, Basophils % 0.2, Absolute Granulocytes 5.5, Absolute Lymphocytes 1.1 L, Absolute Monocytes 0.6, Absolute Eosinophils 0.1, Absolute Basophils 0 09/09/17 0330: Urinalysis MOD H, Urine Color YEL, Urine Clarity HAZY H, Urine pH 6.0, Ur Specific [place] >= 1.030, Urine Protein TRACE H, Urine Ketones TRACE H, Urine Nitrite NEG, Urine Bilirubin NEG@ICTO, Urine Urobilinogen 0.2, Ur Leukocyte Esterase NEG, Ur Microscopic SEDIMENT EXAMINED, Urine RBC 1-3, Urine WBC 1-3 H, Ur Epithelial Cells RARE, Urine Hemoglobin MOD H, Urine Glucose NEG 09/09/17 0330: Urine Osmolality 930, Ur Random Creatinine 185.1, Ur Random Sodium 33, Ur Random Potassium 83.9, Fraction Sodium Excret 0.1 09/09/17 0030: Anion Gap 10, Estimated GFR > 60, BUN/Creatinine Ratio 28.0 H, Serum Osmolality 333 H 09/08/17 1946: Lactic Acid Cancelled 09/08/17 1705: Anion Gap 15, Estimated GFR > 60, BUN/Creatinine Ratio 30.0 H, Glucose 137 H, Lactic Acid 2.0, Calcium 10.1, Total Bilirubin 0.6, AST 40, ALT 61, Alkaline Phosphatase 152 H, Troponin I 0.05, Wkw-W-Xeumwrweain Pept 7430 H, Total Protein 7.4, Albumin 3.8, Globulin 3.6, Albumin/Globulin Ratio 1.1, CBC w Diff MAN DIFF ORDERED, RBC 5.17, MCV 85.6, MCH 28.6, MCHC 33.5, RDW 15.2 H, MPV 8.2, Gran % 80.2 H, Lymphocytes % 12.0 L, Monocytes % 6.8, Eosinophils % 0.3, Basophils % 0.7, Absolute Granulocytes 6.6 H, Absolute Lymphocytes 1.0 L, Absolute Monocytes 0.6, Absolute Eosinophils 0, Absolute Basophils 0.1, Platelet Estimate ADEQUATE, Normocytic RBCs VERIFIED, Normochromic RBCs VERIFIED Diagnostic Imaging: Viewed by Me: Radiology Read, CT Scan. Discussed w/RAD: Radiology Read, CT Scan. Radiology Impression: PATIENT: TEE PARISI PRESENT AGE: 89 PATIENT ACCOUNT NO: [id number] : [birth year] LOCATION: [facility] ORDERING PHYSICIAN: Mil YOUNG SERVICE DATE: 09/08/17 EXAM TYPE: RAD - XRY-PORTABLE CHEST XRAY EXAMINATION: XR PORTABLE CHEST CLINICAL INFORMATION: Altered mental status. COMPARISON: Chest x-ray 07/29/2017. TECHNIQUE: Portable frontal view of the chest was obtained. The upper zones are poorly assessed as the patient's chin is flexed over the region. FINDINGS: The lung terrazas are moderately well-expanded bilaterally. There has been interval decrease in the opacities at the lung bases when compared to the prior study. There are no definite pleural effusions. The cardiac silhouette is normal. The aortic arch is calcified and unfolded. The central pulmonary vasculature appears normal. There are no acute osseous findings. IMPRESSION: 1. There are no acute cardiopulmonary findings. DICTATED BY: Andrea Kat MD DATE/TIME DICTATED:09/08/171725 [employer]AME AND [employer] PROTECTOR:ANDERSON DATE/TIME TRANSCRIBED:09/08/171725 CONFIDENTIAL, DO NOT COPY WITHOUT APPROPRIATE AUTHORIZATION. <Electronically signed in Other Vendor System> SIGNED BY: Andrea Kat MD 09/08/171730, PATIENT: TEE PARISI PRESENT AGE: 89 PATIENT ACCOUNT NO: [id number] : [birth year] LOCATION: [facility] ORDERING PHYSICIAN: Mil YOUNG SERVICE DATE: 09/08/17 EXAM TYPE: CAT - CT HEAD WO IV CONTRAST EXAMINATION: CT HEAD WITHOUT CONTRAST CLINICAL INFORMATION: Altered mental status. COMPARISON: CT head 07/17/2017 TECHNIQUE: Contiguous axial imaging was performed from the skull base to vertex without intravenous administration of contrast. DLP: 692.17 mGy- cm FINDINGS: There is no evidence of acute intracranial hemorrhage or territorial infarction. No abnormal mass effect or midline shift is seen. Myles to white matter differentiation is well preserved. No extra-axial fluid collections are identified. There is atrophy with prominence of the ventricles and the sulci and hypodensity of the periventricular white matter due to chronic small vessel ischemic disease. There is vascular calcifications of the internal carotid arteries bilaterally. The osseous structures and soft tissues are normal. Is complete opacification of the left maxillary sinus. There is air- fluid level partially opacifying the right maxillary sinus. The frontal sinuses are opacified. The mastoid air cells are normally aerated. IMPRESSION: No acute intracranial pathology. Sinus disease. DICTATED BY: Fahad Singh MD DATE/TIME DICTATED:09/08/171907 GAME AND [employer] PROTECTOR:RAD.ANDERSON DATE/TIME TRANSCRIBED:1907 CONFIDENTIAL, DO NOT COPY WITHOUT APPROPRIATE AUTHORIZATION. < Electronically signed in Other Vendor System> SIGNED BY: Fahad Singh MD 1913 Initial ED EKG: normal sinus rhythm, rate (92) (Mil Mckinley) Departure Departure Disposition: STILL A PATIENT Condition: Stable Clinical Impression Primary Impression: Hypernatremia Secondary Impressions: Dehydration Referrals: Salas GRIFFIN,Uday Arreola (PCP/Family) Departure Forms: Customer Survey General Discharge Information Admission Note Spoke With: Donta Tsai MD Documentation of Exam: Documentation of any treatments & extenuating circumstances including Concerns Regarding Discharge (functional status, medication knowledge or non-compliance, living conditions, etc.) that warrant an admission rather than observation: gentle IV hydration. Serial blood work. Medically not safe for discharge. Dehydration on exam. Patient may require PEG tube for nutrition due to not eating or drinking. IR consultation. (Mil Mckinley) Departure Prescriptions: Current Visit Scripts Risperidone 1 TAB PO BID PRN AGITAT/HALLUCINATION/IRRITABIL #30 TAB Comments I've seen and personally examined the patient and I agree with the PAs evaluation. Profound weakness. Not eating. Significant decline in his mental status. Significant hypernatremia. He is being admitted to the hospital for further care. (Harvinder Coburn DO)
[2017-09-08 17:24] LABS: ABSOLUTE BASOPHIL COUNT 0.1 /CUMM (0.0-0.2); ABSOLUTE EOSINOPHIL COUNT 0 /CUMM (0.0-0.7); ABSOLUTE GRANULOCYTE CT 6.6 /CUMM (1.4-6.5); ABSOLUTE MONOCYTE COUNT 0.6 /CUMM (0.10-0.60); BASOPHIL % 0.7 % (0.0-2.0); EOSINOPHIL % 0.3 % (0-5); GRANULOCYTE % 80.2 % (42.2-75.2); HEMATOCRIT 44.3 % (42-52); MEAN CORPUSCULAR HGB 28.6 PG (27.0-31.0); MEAN CORPUSCULAR HGB CONC 33.5 G/DL (33.0-37.0); MEAN CORPUSCULAR VOLUME 85.6 FL (80.0-94.0); MEAN PLATELET VOLUME 8.2 FL (7.4-10.4); PLATELET COUNT 328 /CUMM (130-400); RBC DISTRIBUTION WIDTH 15.2 % (11.5-14.5); RED BLOOD CELL CT 5.17 /CUMM (4.70-6.10); WHITE BLOOD CELL COUNT 8.2 /CUMM (4.8-10.8)
--- NOTE | 2017-09-08 17:31 | RADIOLOGY REPORT ---
EXAMINATION: XR PORTABLE CHEST CLINICAL INFORMATION: Altered mental status. COMPARISON: Chest x-ray 07/29/2017. TECHNIQUE: Portable frontal view of the chest was obtained. The upper zones are poorly assessed as the patient's chin is flexed over the region. FINDINGS: The lung terrazas are moderately well-expanded bilaterally. There has been interval decrease in the opacities at the lung bases when compared to the prior study. There are no definite pleural effusions. The cardiac silhouette is normal. The aortic arch is calcified and unfolded. The central pulmonary vasculature appears normal. There are no acute osseous findings. IMPRESSION: 1. There are no acute cardiopulmonary findings.
--- NOTE | 2017-09-08 19:14 | CT SCAN REPORT ---
EXAMINATION: CT HEAD WITHOUT CONTRAST CLINICAL INFORMATION: Altered mental status. COMPARISON: CT head 07/17/2017 TECHNIQUE: Contiguous axial imaging was performed from the skull base to vertex without intravenous administration of contrast. DLP: 692.17 mGy-cm FINDINGS: There is no evidence of acute intracranial hemorrhage or territorial infarction. No abnormal mass effect or midline shift is seen. Myles to white matter differentiation is well preserved. No extra-axial fluid collections are identified. There is atrophy with prominence of the ventricles and the sulci and hypodensity of the periventricular white matter due to chronic small vessel ischemic disease. There is vascular calcifications of the internal carotid arteries bilaterally. The osseous structures and soft tissues are normal. Is complete opacification of the left maxillary sinus. There is air-fluid level partially opacifying the right maxillary sinus. The frontal sinuses are opacified. The mastoid air cells are normally aerated. IMPRESSION: No acute intracranial pathology. Sinus disease.
--- NOTE | 2017-09-08 21:44 | History & Physical ---
Dom GRIFFIN,Cecilio 09/08/17 6623: General Information and HPI MD Statement: I have seen and personally examined TEE PARISI and documented this H&P. The patient is a 89 year old M who presented with a patient stated chief complaint of [worsening lethargy/ams, hypernatremia]. Source of Information: family, old records Exam Limitations: not alert/orientated History of Present Illness: Patient is an 89-year-old male with a PMH significant for Alzheimer's dementia, CAD, HTN, HLD, seizure disorder, GI bleed, blindness, paroxysmal A. fib [facility] with worsening lethargy and altered mental status over the course of 1 week. History was obtained by the patient's and son who were at bedside. Patient approximately 1 week ago had several episodes of diarrhea, since that time he has had very poor p.o. intake. Patient 's family reports that on the rare occasions he does take in food or water, he grimaces after swallowing. After recently being discharged from [facility], he had been working with physical therapy, however this stopped 2 weeks ago when he was deemed to not be making significant progress, he is now wheelchair-bound. Patient has progressive Alzheimer's dementia, per his he has shown a progressive decline in cognitive function, with his lucid intervals being much less frequent. Patient is not articulate any complaints to the family recently, however he often speaks incoherently and over the last week since his has rarely been speaking. Allergies/Medications Allergies: Coded Allergies: adhesive (UNKNOWN 12/05/15) Past History Travel History Traveled to [place] past 21 day No Medical History Neurological: Alzheimer's disease, seizure, TIA EENT: LEGALLY BLIND Cardiovascular: aortic stenosis, CAD, hypertension, hyperlipidemia Respiratory: bronchitis Gastrointestinal: GI bleed Hepatic: NONE Renal: NONE Musculoskeletal: NONE Psychiatric: NONE Endocrine: NONE Blood Disorders: NONE Cancer(s): NONE BILINGUAL HR GENERALIST/Reproductive: NONE History of MRSA: No History of VRE: No History of CDIFF: No Surgical History Surgical History: appendectomy, cataract removal, hernia repair-inguinal, L carotid endarterectomy Past Family/Social History Family History Relations & Conditions if any MOTHER FH: diabetes mellitus Psychosocial History Where do you live? Retirement Facility Services at Home: None Primary Language: Bengali Smoking Status: Former Smoker ETOH Use: denies use Illicit Drug Use: denies illicit drug use Functional Ability ADLs Independent: dressing, eating, toileting, bathing. Ambulation: independent IADLs Needs Assist: shopping, housework, finances, food prep, telephone, transportation, medication admin. Review of Systems Review of Systems Constitutional: Denies: chills, diaphoresis, fever. EENTM: Reports: see HPI, throat pain (grimmaces with PO intake). Cardiovascular: Reports: no symptoms, see HPI. Respiratory: Reports: see HPI. GI: Reports: see HPI, abdominal pain, diarrhea (1 week ago). Genitourinary: Reports: no symptoms, see HPI. Musculoskeletal: Reports: no symptoms. Skin: Reports: no symptoms. Neurological/Psychological: Reports: dementia. Exam & Diagnostic Data Last 24 Hrs of Vital Signs/I&O Vital Signs Date Time Temp Pulse Resp B/P B/P Pulse O2 O2 Flow FiO2 Mean Ox Delivery Rate 09/08 2319 97.9 55 22 130/60 98 Room Air 09/08 2246 98.0 71 16 146/83 98 Room Air 09/08 2052 97.7 67 20 147/69 98 Room Air 09/08 1641 Room Air 09/08 1640 97.2 84 20 153/79 100 Room Air Intake & Output 09/09 0800 09/09 0000 09/08 1600 Intake Total 700 Output Total Balance 700 Intake, IV 700 Patient 125 lb Weight Weight Bed scale Measurement Method Physical Exam General Appearance lethargic, oriented to person and time but not place Cardiovascular Normal S1, Normal S2, irregularly irregular rate, systolic ejection murmur Lungs not cooperative with exam, scant rhonchi Abdomen Normal Bowel Sounds, Soft, slight grimmacing with abdominal palpation and patient attempted to push hands away during exam Neurological not cooperative with neuro exam Extremities No Clubbing, No Cyanosis, No Edema Last 24 Hrs of Labs/Carlos A: Laboratory Tests 09/09/17 0030: Anion Gap 10, Estimated GFR > 60, BUN/Creatinine Ratio 28.0 H 09/08/17 1946: Lactic Acid Cancelled 09/08/17 1705: Anion Gap 15, Estimated GFR > 60, BUN/Creatinine Ratio 30.0 H, Glucose 137 H, Lactic Acid 2.0, Calcium 10.1, Total Bilirubin 0.6, AST 40, ALT 61, Alkaline Phosphatase 152 H, Troponin I 0.05, Bsx-W-Afxcesoezfh Pept 7430 H, Total Protein 7.4, Albumin 3.8, Globulin 3.6, Albumin/Globulin Ratio 1.1, CBC w Diff MAN DIFF ORDERED, RBC 5.17, MCV 85.6, MCH 28.6, MCHC 33.5, RDW 15.2 H, MPV 8.2, Gran % 80.2 H, Lymphocytes % 12.0 L, Monocytes % 6.8, Eosinophils % 0.3, Basophils % 0.7, Absolute Granulocytes 6.6 H, Absolute Lymphocytes 1.0 L, Absolute Monocytes 0.6, Absolute Eosinophils 0, Absolute Basophils 0.1, Platelet Estimate ADEQUATE, Normocytic RBCs VERIFIED, Normochromic RBCs VERIFIED Diagnostic Data EKG Results sinus rhythm with PACs CXR Results The lung terrazas are moderately well-expanded bilaterally. There has been interval decrease in the opacities at the lung bases when compared to the prior study. There are no definite pleural effusions. The cardiac silhouette is normal. The aortic arch is calcified and unfolded. The central pulmonary vasculature appears normal. There are no acute osseous findings. IMPRESSION: 1. There are no acute cardiopulmonary findings. Other Results CT head There is no evidence of acute intracranial hemorrhage or territorial infarction. No abnormal mass effect or midline shift is seen. Myles to white matter differentiation is well preserved. No extra-axial fluid collections are identified. There is atrophy with prominence of the ventricles and the sulci and hypodensity of the periventricular white matter due to chronic small vessel ischemic disease. There is vascular calcifications of the internal carotid arteries bilaterally. The osseous structures and soft tissues are normal. Is complete opacification of the left maxillary sinus. There is air-fluid level partially opacifying the right maxillary sinus. The frontal sinuses are opacified. The mastoid air cells are normally aerated. IMPRESSION: No acute intracranial pathology. Sinus disease. CT abd/pelvis Evaluation limited without intravenous contrast. LUNG BASES: There is right basilar atelectasis. Prominent mitral annular calcification is redemonstrated. No pericardial or pleural effusion. LIVER, GALLBLADDER, AND BILIARY TREE: Evaluation limited without intravenous contrast. No focal lesion seen. No intrahepatic biliary dilatation. The gallbladder is unremarkable with no evidence of radiopaque gallstones, gallbladder wall thickening, or obvious pericholecystic inflammatory changes. PANCREAS: Within normal limits. No acute inflammatory changes are seen. SPLEEN: Unremarkable. ADRENAL GLANDS: Unremarkable. KIDNEYS AND URETERS: Multiple bilateral renal cysts. Smaller lesions are too small to characterize, probably reflecting cysts, similar to the prior study. No calculi. No hydronephrosis. BLADDER: There is hyperdensity along the posterior bladder wall, from indeterminate significance. Potentially, this may reflect complex contents, calcific debris or perhaps calcification in the urinary bladder wall. Correlate with urinalysis. GASTROINTESTINAL TRACT: There is prominent stool in the rectum and rectosigmoid junction. Question some edema of the rectal wall, but no júnior inflammatory changes are seen. The large colon otherwise appears unremarkable. Normal caliber small bowel loops. No evidence of bowel obstruction. The stomach is nondistended. No free fluid. The appendix not visualized. ABDOMINAL WALL: No significant hernia is appreciated. LYMPH NODES: No pathologically enlarged lymph nodes are seen. VASCULAR: Ectatic distal descending aorta measuring 3.3 cm in AP dimension, unchanged. Moderate atherosclerotic disease in the aorta. PELVIC VISCERA: Enlarged prostate, containing coarse calcification. Seminal vesicles are symmetric. OSSEOUS STRUCTURES: Multilevel degenerative changes of the spine. IMPRESSION: 1. Prominent volume of stool in the rectum and rectosigmoid junction, with possible edema in the rectal wall. Findings are suggestive of rectal impaction. Clinically correlate. 2. There is hyperdensity along the posterior urinary bladder wall, from indeterminate etiology. Differential considerations include complex contents, calcific debris, or perhaps calcification in the urinary bladder wall. Correlate with urinalysis. 3. Bilateral renal cysts. 4. Enlarged prostate. 5. Stable ectatic distal descending aorta measuring 3.3 cm. Assessment/Plan Assessment: Patient is an 89-year-old male with a PMH significant for Alzheimer's dementia, CAD, HTN, HLD, seizure disorder, aortic stenosis, GI bleed, blindness, paroxysmal A. fib who [facility] with worsening lethargy and altered mental status over the course of 1 week. Patient has had poor p.o. intake over the last week, episode of diarrhea 1 week ago. Per patient's family he has had worsening cognitive decline over the past several weeks and increasing weakness. Vital signs on admission: T 97.2, P 84, RR 20, BP 153/79, pulse ox 100% on room air Labs: WBC 8.2, H/H 14.8/44.3, platelets 328, sodium 156, potassium 4.1, chloride 113, CO2 28, BUN 30, creatinine 1.0 Problem list #Hypernatremia #Worsening cognitive decline #Chronic medical problems including CAD, Alzheimer's dementia, HLD, seizure disorder, blindness, paroxysmal A. fib, aortic stenosis Plan -Admit to general medicine -IV hydration with D5 water, and sodium checks every 4 hours until within normal limits, the water deficit calculated at 5.4 L -n.p.o. pending formal swallow evaluation -Per discussion with patient's family, PEG tube will not be pursued, even if patient is not tolerating p.o. diet when his mental status improves -Hold all sedative medications -We will attempt to give necessary medications with applesauce, if patient does not tolerate this we will need to convert medications to IV -Bowel regimen given fecal impaction seen on CT Diet: N.p.o. pending formal swallow evaluation DVT prophylaxis: Subcutaneous heparin, Alps CODE STATUS: DNR/DNI As Ranked By This Provider Problem List: 1. Dehydration 2. Alteration consciousness 3. Hypernatremia Core Measures/Misc (12/21) Acute Coronary Syndrome ACS Diagnosis: No Congestive Heart Failure Congestive Heart Failure Diagnosis No Cerebrovascular Accident CVA/TIA Diagnosis: No VTE (View Protocol) VTE Risk Factors Age>40 No Mechanical VTE Prophylaxis d/t N/A MechProphylax Ordered No VTE Pharm Prophylaxis d/t NA PharmProphylax ordered Sepsis (View protocol) Sepsis Present: No If YES complete Sepsis Event Note If YES complete Sepsis Event Note Maddie Heller 09/09/17 0136: General Information and HPI Allergies/Medications Home Med list Aspirin (Ecotrin*) 81 MG TABLET.DR 1 TAB PO DAILY HEART HEALTH (Reported) Atorvastatin Calcium 40 MG TABLET 1 TAB PO DAILY CHOLESTEROL (Reported) Clopidogrel Bisulfate (Plavix) 75 MG TABLET 75 MG PO DAILY coronary artery disease Cyanocobalamin (Vitamin B-12) 1,000 MCG TABLET 1 TAB PO DAILY VITAMIN SUPPORT (Reported) Diltiazem HCl (Cardizem) 30 MG TABLET 1 TAB PO Q6 heart rate Docusate Sodium (Stool Softener) 50 MG CAPSULE 2 TAB PO DAILY CONSTIPATION ( Reported) Donepezil HCl (Aricept) 5 MG TABLET 1 TAB PO QPM MENTAL HEALTH (Reported) Folic Acid 1 MG TABLET 1 TAB PO DAILY VITAMIN SUPPORT (Reported) Furosemide 20 MG TABLET 20 MG PO DAILY diuresis Isosorbide Mononitrate (Isosorbide Mononitrate ER) 30 MG TAB.ER.24H 1 TAB PO DAILY HEART (Reported) Lisinopril 10 MG TABLET 1 TAB PO DAILY BP (Reported) Nitroglycerin (Nitrostat) (Unknown Strength) TAB.SUBL 0.3 MG SL AD PRN HEART (Reported) 1st sign of attack; may repeat every 5 minutes until relief; if pain persists after 3 tablets in 15 minutes, prompt medical att Omeprazole 20 MG TABLET.DR 1 TAB PO DAILY gastric protection Phenytoin Sodium Extended 100 MG CAPSULE 2 CAP PO BID SEIZURES (Reported) Risperidone 0.25 MG TABLET 1 TAB PO BID PRN AGITAT/HALLUCINATION/IRRITABIL Sennosides (Senna) 8.6 MG TABLET 2 TAB PO BID CONSTIPATION (Reported) Vit C/E/Zn/Coppr/Lutein/Zeaxan (Preservision Areds 2 Softgel) 250-200-40 CAPSULE 1 CAP PO BID EYE (Reported) Core Measures/Misc (12/21) Sepsis (View protocol) If YES complete Sepsis Event Note If YES complete Sepsis Event Note Resident Review Statement Resident Statement: examined this patient, discussed with credit intern, agreed with credit intern, amended to note Other Findings: Mr Parisi is an 89 year old man w/ a PMHx of Alzheimer's disease, seizure, TIA, legally blind, coronary artery disease, hypertension, congestive heart failure, hyperlipidemia, moderate aortic stenosis, atrial fibrillation not on anticoagulation for history of hematuria and high risk bleeding, previous GI bleed was brought in from an extended care facility with a chief concern of increased weakness. Most of the history was obtained from the patient's , since Mr. Parisi could not provide any history. Reported decreased by mouth intake. Also reported decline in mental status over the past few months. No reports of vomiting. Reported to have a few episodes of diarrhea. Other ROS wasnt very clear, but reported no fever, chills; no chest pain, shortness of breath. No neurological weakness. Unclear about urine output. At the time of admission-temperature 97.2, pulse rate 84, respiration 20, blood pressure 153/74, pulse ox 100% on room air. General Exam: AAOx0, sleepy, cant follow verbal commands reliably, No acute distress, dry mucosa, vision couldnt be tested, Skin: No rashes, no breakdown; HEENT: PERRLA, EOMI;Neck: Supple, No JVD; No cervical lymphadenopathy;CVS: irregular Rate, Normal S1,S2, systolic murmur; Resp: decreaed air entry, no ronchi/rales(limited exam) ;Abdomen: Soft, No tenderness, Normal Bowel Sounds; Neuro: Neuro exam was limited given his somnolence, Reflexes 2+;Extremities: No cyanosis, no pedal edema Perrtinent lab findings- WBC 8.2, hemoglobin 14.8, platelet count 328 sodium 158 (range 146-151 from 07/23/2017-07/29/2017) Potassium 4.1, chloride 118, bicarbonate 28, anion gap 15 BUN 30, creatinine 1.0 (likely dehydration), glucose 137 Lactic acid 2.0 Calcium 10.1 Liver chemistry-AST 40, ALT 61, alkaline phosphatase 152 (unclear etiology) Troponin I-0.05, proBNP 7430 (-4320), albumin 3.8. Urinalysis pending Urine lites pending EKG reveals normal sinus rhythm, multiple PVCs, left axis deviation, left anterior fascicular block. CT 09/08/2017 head: No acute intracranial pathology. Sinus disease. Chest x-ray 09/08/2017 1. There are no acute cardiopulmonary findings. CT scan abdomen 09/08/2017-1. Prominent volume of stool in the rectum and rectosigmoid junction, with possible edema in the rectal wall. Findings are suggestive of rectal impaction. 2. There is hyperdensity along the posterior urinary bladder wall, from indeterminate etiology. Differential considerations include complex contents, calcific debris, or perhaps calcification in the urinary bladder wall. Correlate with urinalysis. 3. Bilateral renal cysts. 4. Enlarged prostate.5. Stable ectatic distal descending aorta measuring 3.3 cm. Etiology in his case of increasing lethargy, and altered mental status could be multifactorial including worsening dementia, leading to abnormal thirst mechanism that would explain his hypovolemic state. Also noted to have diarrhea, and unsure if he lost of lot of fluids leading to hypovolemia(elevated BUN, and physical exam). Although, his proBNP was slightly elevated, he doesnt have any s /s of CHF exacerbation, thus no hypervolemia. In cases that are hypovolemic hypernatremia, the treatment is to correct the volume status w/ isotonic fluids and then correct the free water deficit, which is around 5.12 liters in his case. Given his chronicity of hypernatremia, care should be taken to not over correct more than 10-12 meq/day; the onset of hypertonicity is slow enough to allow the brain to adapt to minimize cerebral dehydration and organic osmolytes are accumulated during the adaptation and are very slow to leave the cell during rehydration. Although there is no magic formula to correct the hypernatremia, would correct half the deficit in the first 24 hrs, and the remainder in the next few days. Other differentials considered are DI, which is unlikely, but would check urine osm,urine output. In regards to the CT e/o contents behind the bladder wall, these have to be evaluated, as needed. Problem list: 1. Hypernatremia (chronic), hypovolemic 2. Dementia 3. History of aortic stenosis 4. History of CHF 5. Altered mental status 6. e/o rectal impaction 7. Bilateral renal cysts 8 BPH ? 9. Ectatic distal descending aorta measuring 3.3 cm. 10. h/o seizures 11. h/o Afib not on AC Plan: -Admit the patient to general medicine service. -Patient has been given intravenous fluids, for volume resuscitation in the ER, for hypovolemic hyponatremia. -Chek BEP every 4-6 hours, avoid correction of more than 10-12 mEq per liter per day. Goal is to correct half the deficit in the first 24 hrs, and the remainder in the next few days. -Check urinalysis, urine lites, urine osm. -Continue home doses of antihypertensives. -Not on any AC for h/o of p Afib at this time. Currently in NSR. Would continue calcium channel blokcker. -NPO pending swallow evaluation. -Pt usually eats a puree'ed diet, and has no inability to swallow. -Speech and nutritional consult given his decreased po intake, and AMS. -Continue anti-seizure meds. -Please continue senna, colace. If he doesnt have a bowel movement in the next 24 hrs, would try enema. Checklist: 1. DVT PPx- heparin sc 2. GI ppx- protonix prn 3. DNR/DNI. 4. NPO for now, pending swallow eval. Eulalio GRIFFIN, [facility] 09/09/17 0526: Core Measures/Misc (12/21) Sepsis (View protocol) If YES complete Sepsis Event Note If YES complete Sepsis Event Note Attending MD Review Statement Attending Statement Attending MD Statement: examined this patient, discuss w/resident/PA/ASSISTANT PROFESSOR SCULPTURE, agreed w/resident/PA/ASSISTANT PROFESSOR SCULPTURE, discussed with family, reviewed images, amended to note Attending Assessment/Plan: 89 yo M with h/o Alzheimer's dementia, HTN, seizure, TIA, CAD s/p KS, HfrEF, moderate , Afib not on AC due to high risk of bleeding, legally blind, is brought in from [facility] for increasing confusion, weakness, lethargy and poor PO intake for the past 1 week. Patient had diarrhea one week ago. Family notes worsening dementia symptoms. Sodium checked at the facility today was 157 hence he was sent to ER. He is wheelchair bound and a Omar lift. Diet is usually pureed nectar thick liquids. Vitals stable. Exam reveals elderly male in no distress, dry mucosa, no obvious rash, Chest clear, Abd soft, some mid abdomen tenderness, LE: no edema. Labs: Na 156 --> 158, BUN 30, glucose 137, lactic acid 2.0, Alk phos 152, trop 0.05, proBNP 7430. UA not suggestive of UTI. CXR: no acute findings. CT head: no acute pathology, sinus disease. CT abd/pelvis: rectal stool impaction, hyperdensity along posterior urinary bladder wall, bilateral renal cysts, enlarged prostate. EKG: sinus rhythm, PVC's, Qtc 495. Echo (2018): EF 35%, concentric LVH, apical akinesis, moderate aortic stenosis, moderate pulmonary hypertension. Assessment and plan: 1. Lethargy, confusion metabolic encephalopathy in combination with worsening dementia 2. Hypernatremia, severe dehydration 3. Alzheimer's dementia 4. Diarrhea resolved, now he has stool impaction 5. H/o systolic heart failure with elevated proBNP but not in pulmonary edema - Admit to General medicine - Calculate free water deficit - ~ 5 L - Patient received normal saline in the ER - Initiate D5W @ 150/hour while watching for fluid overload - Check sodium levels Q4 - Avoid over-correction to no more than 8-10 mEq in 24 hours - NPO for now, swallow eval when more awake - Resume home meds when able to take PO - If needed consider transfer to Tele for IV cardiac meds - Stool disimpaction needs to be performed, consider giving an enema DVT ppx Hep SC. DNR/I. Family does not wish for any artificial feeds or feeding tubes. If he deteriorates, then they want to keep him comfortable.
--- NOTE | 2017-09-08 22:13 | CT SCAN REPORT ---
EXAMINATION: CT ABDOMEN AND PELVIS WITHOUT CONTRAST CLINICAL INFORMATION: Altered mental status. COMPARISON: 07/04/2016 TECHNIQUE: Multidetector volumetric imaging was performed from the superior aspect of the liver through the pubic symphysis. Sagittal and coronal reformatted images were obtained on the technologist's workstation. DLP: 261 mGy-cm FINDINGS: Evaluation limited without intravenous contrast. LUNG BASES: There is right basilar atelectasis. Prominent mitral annular calcification is redemonstrated. No pericardial or pleural effusion. LIVER, GALLBLADDER, AND BILIARY TREE: Evaluation limited without intravenous contrast. No focal lesion seen. No intrahepatic biliary dilatation. The gallbladder is unremarkable with no evidence of radiopaque gallstones, gallbladder wall thickening, or obvious pericholecystic inflammatory changes. PANCREAS: Within normal limits. No acute inflammatory changes are seen. SPLEEN: Unremarkable. ADRENAL GLANDS: Unremarkable. KIDNEYS AND URETERS: Multiple bilateral renal cysts. Smaller lesions are too small to characterize, probably reflecting cysts, similar to the prior study. No calculi. No hydronephrosis. BLADDER: There is hyperdensity along the posterior bladder wall, from indeterminate significance. Potentially, this may reflect complex contents, calcific debris or perhaps calcification in the urinary bladder wall. Correlate with urinalysis. GASTROINTESTINAL TRACT: There is prominent stool in the rectum and rectosigmoid junction. Question some edema of the rectal wall, but no júnior inflammatory changes are seen. The large colon otherwise appears unremarkable. Normal caliber small bowel loops. No evidence of bowel obstruction. The stomach is nondistended. No free fluid. The appendix not visualized. ABDOMINAL WALL: No significant hernia is appreciated. LYMPH NODES: No pathologically enlarged lymph nodes are seen. VASCULAR: Ectatic distal descending aorta measuring 3.3 cm in AP dimension, unchanged. Moderate atherosclerotic disease in the aorta. PELVIC VISCERA: Enlarged prostate, containing coarse calcification. Seminal vesicles are symmetric. OSSEOUS STRUCTURES: Multilevel degenerative changes of the spine. IMPRESSION: 1. Prominent volume of stool in the rectum and rectosigmoid junction, with possible edema in the rectal wall. Findings are suggestive of rectal impaction. Clinically correlate. 2. There is hyperdensity along the posterior urinary bladder wall, from indeterminate etiology. Differential considerations include complex contents, calcific debris, or perhaps calcification in the urinary bladder wall. Correlate with urinalysis. 3. Bilateral renal cysts. 4. Enlarged prostate. 5. Stable ectatic distal descending aorta measuring 3.3 cm.
[2017-09-08 23:19] VITALS: BP 130/60
[2017-09-08] MEDS ORDERED: RISPERIDONE0.25 M1 PO (23:38)
[2017-09-08] MEDS ORDERED: SENNA8.6 M3 PO (23:44)
[2017-09-08] MEDS ORDERED: STOOL SOFTENER50 MG PO (23:44)
[2017-09-08] MEDS ORDERED: ARICEPT5 M1 PO (23:45)
[2017-09-09 03:57] LABS: ABSOLUTE BASOPHIL COUNT 0 /CUMM (0.0-0.2); ABSOLUTE EOSINOPHIL COUNT 0.1 /CUMM (0.0-0.7); ABSOLUTE GRANULOCYTE CT 5.5 /CUMM (1.4-6.5); ABSOLUTE LYMPH COUNT 1.1 /CUMM (1.2-3.4); ABSOLUTE MONOCYTE COUNT 0.6 /CUMM (0.10-0.60); BASOPHIL % 0.2 % (0.0-2.0); EOSINOPHIL % 0.9 % (0-5); GRANULOCYTE % 75.7 % (42.2-75.2); MEAN CORPUSCULAR HGB 28.5 PG (27.0-31.0); MEAN CORPUSCULAR HGB CONC 33.2 G/DL (33.0-37.0); MEAN CORPUSCULAR VOLUME 85.7 FL (80.0-94.0); MEAN PLATELET VOLUME 7.6 FL (7.4-10.4); PLATELET COUNT 282 /CUMM (130-400); RBC DISTRIBUTION WIDTH 15.7 % (11.5-14.5); RED BLOOD CELL CT 4.59 /CUMM (4.70-6.10); WHITE BLOOD CELL COUNT 7.2 /CUMM (4.8-10.8)
[2017-09-09 03:59] LABS: HEMATOCRIT 39.3 % (42-52)
--- NOTE | 2017-09-09 04:14 | Admission Certification ---
Admission Certification Certification Statement - As attending physician, I certify that at the time of - admission, based on clinical presentation, severity of - symptoms, need for further diagnostic testing and - therapeutic interventions, and risk of adverse outcomes - without in-hospital treatment, in my clinical assessment, - this patient requires an acute hospital stay for a minimum - of two nights or longer. I have also considered psychsocial - factors such as support system, advanced age, financial - issues, cognitive issues, and failed out-patient treatments, - past re-admission history, safety of patient, and lack of - compliance as applicable. Specific rationale supporting this admission is: Hypernatremia, dehydration, worsening mentation.
[2017-09-09 05:43] VITALS: BP 126/63
--- NOTE | 2017-09-09 07:10 | PN- Housestaff ---
Andres GRIFFIN,[facility] 09/09/17 0710: Subjective Follow-up For: Lethargy, AMS Complaints: pt unable to provide hx Subjective: Patient seen and examined. He is lethargic and minimally responsive. Unable to offer any complaints. Review of Systems Constitutional: Reports: no symptoms. Objective Last 24 Hrs of Vital Signs/I&O Vital Signs Date Time Temp Pulse Resp B/P B/P Pulse O2 O2 Flow FiO2 Mean Ox Delivery Rate 09/09 0654 55 126/63 09/09 0543 97.4 55 22 126/63 97 Room Air 09/08 2345 97 Room Air 09/08 2319 97.9 55 22 130/60 98 Room Air 09/08 2246 98.0 71 16 146/83 98 Room Air 09/08 2052 97.7 67 20 147/69 98 Room Air 09/08 1641 Room Air 09/08 1640 97.2 84 20 153/79 100 Room Air Intake & Output 09/09 1600 09/09 0800 09/09 0000 Intake Total 600 700 Output Total 350 Balance 250 700 Intake, IV 600 700 Output, Urine 350 Patient 123 lb 124 lb 125 lb Weight Weight Bed scale Bed scale Measurement Method Physical Exam General Appearance: Cooperative, Mild Distress, awake, lethargic, Skin: No Rashes, No Breakdown Skin Temp/Moisture Exam: Warm/Dry Sepsis Skin Exam (color): Normal for Ethnicity HEENT: Atraumatic Cardiovascular: Normal S1, Normal S2, AMADOR Lungs: Clear to Auscultation, Normal Air Movement Abdomen: Soft, No Tenderness Neurological: Normal Speech Extremities: No Edema Last 24 Hrs of Lab/Carlos A Results Last 24 Hrs of Labs/Mics: Laboratory Tests 09/09/17 0910: 09/09/17 0600: Sodium Cancelled, Potassium Cancelled, Chloride Cancelled, Carbon Dioxide Cancelled, Anion Gap Cancelled, BUN Cancelled, Creatinine Cancelled, BUN/ Creatinine Ratio Cancelled 09/09/17 0345: CBC w Diff NO MAN DIFF REQ, RBC 4.59 L, MCV 85.7, MCH 28.5, MCHC 33.2, RDW 15.7 H, MPV 7.6, Gran % 75.7 H, Lymphocytes % 14.8 L, Monocytes % 8.4, Eosinophils % 0.9, Basophils % 0.2, Absolute Granulocytes 5.5, Absolute Lymphocytes 1.1 L, Absolute Monocytes 0.6, Absolute Eosinophils 0.1, Absolute Basophils 0 09/09/17 0330: Urinalysis MOD H, Urine Color YEL, Urine Clarity HAZY H, Urine pH 6.0, Ur Specific [place] >= 1.030, Urine Protein TRACE H, Urine Ketones TRACE H, Urine Nitrite NEG, Urine Bilirubin NEG@ICTO, Urine Urobilinogen 0.2, Ur Leukocyte Esterase NEG, Ur Microscopic SEDIMENT EXAMINED, Urine RBC 1-3, Urine WBC 1-3 H, Ur Epithelial Cells RARE, Urine Hemoglobin MOD H, Urine Glucose NEG 09/09/17 0330: Urine Osmolality 930, Ur Random Creatinine 185.1, Ur Random Sodium 33, Ur Random Potassium 83.9, Fraction Sodium Excret 0.1 09/09/17 0030: Anion Gap 10, Estimated GFR > 60, BUN/Creatinine Ratio 28.0 H, Serum Osmolality 333 H 09/08/17 1946: Lactic Acid Cancelled 09/08/17 1705: Anion Gap 15, Estimated GFR > 60, BUN/Creatinine Ratio 30.0 H, Glucose 137 H, Lactic Acid 2.0, Calcium 10.1, Total Bilirubin 0.6, AST 40, ALT 61, Alkaline Phosphatase 152 H, Troponin I 0.05, Dft-R-Bcfcqelbjer Pept 7430 H, Total Protein 7.4, Albumin 3.8, Globulin 3.6, Albumin/Globulin Ratio 1.1, CBC w Diff MAN DIFF ORDERED, RBC 5.17, MCV 85.6, MCH 28.6, MCHC 33.5, RDW 15.2 H, MPV 8.2, Gran % 80.2 H, Lymphocytes % 12.0 L, Monocytes % 6.8, Eosinophils % 0.3, Basophils % 0.7, Absolute Granulocytes 6.6 H, Absolute Lymphocytes 1.0 L, Absolute Monocytes 0.6, Absolute Eosinophils 0, Absolute Basophils 0.1, Platelet Estimate ADEQUATE, Normocytic RBCs VERIFIED, Normochromic RBCs VERIFIED Assessment/Plan Assessment: 89-year-old male male with PMH of Alzheimer dementia, hypertension, hyperlipidemia, seziure, legal blindness, atrial fibrillation not on anticoagulation, CAD, CHF with of EF 35%, recently discharged from [facility] after being treated for hypernatremia was sent to the ER for worsening lethargy and altered mental status over the course of 1 week. Assessment: 1. Hypernatremia 2. Worsening lethargy and AMS 3. History of A.fib not on AC 4. History of Alzheimer's dementia Plan: * His AMS and lethargy could might as well be due his electrolyte abnormality. * His Na level is improving. Goal is to correct by 6-8meq/24 hours. He has already corrected it to 150 today. Will attempt to keep it to this level for now. * Continue D5W @100ml/hr. * Monitor for signs of improvement with correction of sodium. * BEP (Na only) q6. * Will keep him NPO including meds until his swallow evaluation is done. Per nurses report patient was attempted feeding with apple sauce which is not swallowing. * Palliative consult * Goals of care discussion with family. * Diet: NPO for now * DVT Prophylaxis: SC Lovenox * Code: DNR/DNI Problem List: 1. Alteration consciousness Pain Ratin Pain Location: none Pain Goal: Remain pain free Pain Plan: none Tomorrow's Labs & Rationales: CBC, BEP Selwyn GRIFFIN,Nessa 09/09/17 1056: Attending MD Review Statement Attending Statement Attending MD Statement: examined this patient, discuss w/resident/PA/ZINC PLATE CUTTER, agreed w/resident/PA/ZINC PLATE CUTTER, discussed with family, reviewed EMR data (avail), discussed with nursing, discussed with case mgmt, reviewed images, amended to note Attending Assessment/Plan: Patient seen and examined, still lethergic and not able to communicate well secondary to advanced dementia. Patient admitted with lethargy, dehydration and hypernatremia. Sodium levels have improved after IV fluids. Vital Signs Date Time Temp Pulse Resp B/P B/P Pulse O2 O2 Flow FiO2 Mean Ox Delivery Rate 09/09 0654 55 126/63 09/09 0543 97.4 55 22 126/63 97 Room Air 09/08 2345 97 Room Air 09/08 2319 97.9 55 22 130/60 98 Room Air / 2246 98.0 71 16 146/83 98 Room Air / 2052 97.7 67 20 147/69 98 Room Air 09/08 1641 Room Air 09/08 1640 97.2 84 20 153/79 100 Room Air on exam; awake but lethargic. cv; s1,s2 rrr, + systolic murmur resp; clear abd; soft, nt, bs+ ext; no edema Laboratory Tests 09/09 09/09 09/09 0910 0600 0345 Chemistry Sodium (137 - 145 mmol/L) 150 H Cancelled 155 H Potassium Cancelled Chloride Cancelled Carbon Dioxide Cancelled Anion Gap Cancelled BUN Cancelled Creatinine Cancelled BUN/Creatinine Ratio Cancelled Hematology CBC w Diff NO MAN DIFF REQ WBC (4.8 - 10.8 /CUMM) 7.2 RBC (4.70 - 6.10 /CUMM) 4.59 L Hgb (14.0 - 18.0 G/DL) 13.1 L Hct (42 - 52 %) 39.3 L MCV (80.0 - 94.0 FL) 85.7 MCH (27.0 - 31.0 PG) 28.5 MCHC (33.0 - 37.0 G/DL) 33.2 RDW (11.5 - 14.5 %) 15.7 H Plt Count (130 - 400 /CUMM) 282 MPV (7.4 - 10.4 FL) 7.6 Gran % (42.2 - 75.2 %) 75.7 H Lymphocytes % (20.5 - 51.1 %) 14.8 L Monocytes % (1.7 - 9.3 %) 8.4 Eosinophils % (0 - 5 %) 0.9 Basophils % (0.0 - 2.0 %) 0.2 Absolute Granulocytes (1.4 - 6.5 /CUMM) 5.5 Absolute Lymphocytes (1.2 - 3.4 /CUMM) 1.1 L Absolute Monocytes (0.10 - 0.60 /CUMM) 0.6 Absolute Eosinophils (0.0 - 0.7 /CUMM) 0.1 Absolute Basophils (0.0 - 0.2 /CUMM) 0 09/09 09/09 09/09 0330 0330 0030 Chemistry Sodium (137 - 145 mmol/L) 158 *H Potassium (3.5 - 5.1 mmol/L) 3.7 Chloride (98 - 107 mmol/L) 118 H Carbon Dioxide (22 - 30 mmol/L) 30 Anion Gap (5 - 16) 10 BUN (9 - 20 mg/dL) 28 H Creatinine (0.7 - 1.2 mg/dL) 1.0 Estimated GFR (>60 ml/min) > 60 BUN/Creatinine Ratio (7 - 25 %) 28.0 H Serum Osmolality (285 - 295 MOSM/KG) 333 H Urines Urinalysis MOD H Urine Color (YEL,AMB,STR) YEL Urine Clarity (CLEAR) HAZY H Urine pH (5.0 - 8.0) 6.0 Ur Specific [place] (1.001 - 1.035) >= 1.030 Urine Protein (NEG,<30 MG/DL) TRACE H Urine Ketones (NEG) TRACE H Urine Nitrite (NEG) NEG Urine Bilirubin (NEG) NEG@ICTO Urine Urobilinogen (0.1 - 1.0 EU/dl) 0.2 Ur Leukocyte Esterase (NEG) NEG Ur Microscopic SEDIMENT EXAMINED Urine RBC (0 - 5 /HPF) 1-3 Urine WBC (0 - 2 /HPF) 1-3 H Ur Epithelial Cells (NONE,FEW) RARE Urine Hemoglobin (NEG) MOD H Urine Osmolality (300 - 1000 MOSM/KG) 930 Ur Random Creatinine (mg/dL) 185.1 Ur Random Sodium (30 - 90 mmol/L) 33 Ur Random Potassium (mmol/L) 83.9 Fraction Sodium Excret (<1% %) 0.1 Urine Glucose (N MG/DL) NEG 09/08 09/08 194 1705 Chemistry Sodium (137 - 145 mmol/L) 156 *H Potassium (3.5 - 5.1 mmol/L) 4.1 Chloride (98 - 107 mmol/L) 113 H Carbon Dioxide (22 - 30 mmol/L) 28 Anion Gap (5 - 16) 15 BUN (9 - 20 mg/dL) 30 H Creatinine (0.7 - 1.2 mg/dL) 1.0 Estimated GFR (>60 ml/min) > 60 BUN/Creatinine Ratio (7 - 25 %) 30.0 H Glucose (65 - 99 mg/dL) 137 H Lactic Acid (0.7 - 2.1 mmol/L) Cancelled 2.0 Calcium (8.4 - 10.2 mg/dL) 10.1 Total Bilirubin (0.2 - 1.3 mg/dL) 0.6 AST (17 - 59 U/L) 40 ALT (21 - 72 U/L) 61 Alkaline Phosphatase (< 127 U/L) 152 H Troponin I (<0.11 ng/ml) 0.05 Pqp-Z-Gpfwjceqiqt Pept (<125 pg/mL) 7430 H Total Protein (6.3 - 8.2 g/dL) 7.4 Albumin (3.5 - 5.0 g/dL) 3.8 Globulin (1.9 - 4.2 gm/dL) 3.6 Albumin/Globulin Ratio (1.1 - 2.2 %) 1.1 Hematology CBC w Diff MAN DIFF ORDERED WBC (4.8 - 10.8 /CUMM) 8.2 RBC (4.70 - 6.10 /CUMM) 5.17 Hgb (14.0 - 18.0 G/DL) 14.8 Hct (42 - 52 %) 44.3 MCV (80.0 - 94.0 FL) 85.6 MCH (27.0 - 31.0 PG) 28.6 MCHC (33.0 - 37.0 G/DL) 33.5 RDW (11.5 - 14.5 %) 15.2 H Plt Count (130 - 400 /CUMM) 328 MPV (7.4 - 10.4 FL) 8.2 Gran % (42.2 - 75.2 %) 80.2 H Lymphocytes % (20.5 - 51.1 %) 12.0 L Monocytes % (1.7 - 9.3 %) 6.8 Eosinophils % (0 - 5 %) 0.3 Basophils % (0.0 - 2.0 %) 0.7 Absolute Granulocytes (1.4 - 6.5 /CUMM) 6.6 H Absolute Lymphocytes (1.2 - 3.4 /CUMM) 1.0 L Absolute Monocytes (0.10 - 0.60 /CUMM) 0.6 Absolute Eosinophils (0.0 - 0.7 /CUMM) 0 Absolute Basophils (0.0 - 0.2 /CUMM) 0.1 Platelet Estimate (ADEQUATE) ADEQUATE Normocytic RBCs VERIFIED Normochromic RBCs VERIFIED A/P; 89 y/o M with pmh sig for Alzheimer's dementia, CAD, HTN, HLD, seizure disorder, GI bleed, blindness, paroxysmal A. fib, previous admission for hypernatremia admitted with lethargy, dehydration, Hypernatremia and mild metabolic encephalopathy on top of advanced dementia. Sodium is improved. Continue IV fluids but will decrease the rate. Patient to get swallow evaluation. If he passed a swallow evaluation than his oral medications can be resumed. I spoke with his and she is agreeable to get Palliative care consult. Please call Dr. Dumas from palliative care consult. DVT px; Hep sq. D/W and son over the phone.
[2017-09-09 14:38] VITALS: BP 125/69
[2017-09-09 22:14] VITALS: BP 135/83
[2017-09-10 06:20] VITALS: BP 141/87
--- NOTE | 2017-09-10 07:12 | PN- Housestaff ---
Andres GRIFFIN,[facility] 09/10/17 0712: Subjective Follow-up For: Hypernatremia Complaints: pt unable to provide hx Subjective: Patient seen and examined this morning. Apppears to be doing slightly better than yesterday but is still fairly lethargic. Says his throat aches. Review of Systems Constitutional: Reports: no symptoms. Objective Last 24 Hrs of Vital Signs/I&O Vital Signs Date Time Temp Pulse Resp B/P B/P Pulse O2 O2 Flow FiO2 Mean Ox Delivery Rate 09/10 0734 63 09/10 0620 97.8 82 20 141/87 99 Room Air 09/10 0415 66 09/10 0203 60 09/10 0003 56 09/09 2230 75 09/09 2214 98.0 20 135/83 96 Room Air 09/09 2000 72 09/09 1822 65 09/09 1600 71 09/09 1438 96.2 73 18 125/69 99 Room Air Intake & Output 09/10 1600 09/10 0800 09/10 0000 Intake Total 700 300 Output Total Balance 700 300 Intake, IV 700 300 Intake, Oral 0 0 Number 0 Bowel Movements Patient 123 lb Weight Physical Exam General Appearance: Cooperative, Mild Distress, lethargic Skin: No Rashes, No Breakdown Skin Temp/Moisture Exam: Warm/Dry Sepsis Skin Exam (color): Normal for Ethnicity HEENT: Atraumatic Cardiovascular: Normal S1, Normal S2, systolic ejection murmur Lungs: Normal Air Movement Abdomen: Soft, No Tenderness Neurological: Normal Speech Extremities: No Edema Last 24 Hrs of Lab/Carlos A Results Last 24 Hrs of Labs/Mics: Laboratory Tests 09/10/17 0729: Sodium Pending, Potassium Pending, Chloride Pending, Carbon Dioxide Pending, Anion Gap Pending, BUN Pending, Creatinine Pending, BUN/Creatinine Ratio Pending , CBC w Diff Pending, WBC Pending, RBC Pending, Hgb Pending, Hct Pending, MCV Pending, MCH Pending, MCHC Pending, RDW Pending, Plt Count Pending, MPV Pending, Phenytoin Pending 09/10/17 0300: Anion Gap 10, Estimated GFR > 60, BUN/Creatinine Ratio 22.5 09/09/17 1950: 09/09/17 1520: 09/09/17 0910: Assessment/Plan Assessment: 89-year-old male male with PMH of Alzheimer dementia, hypertension, hyperlipidemia, seziure, legal blindness, atrial fibrillation not on anticoagulation, CAD, CHF with of EF 35%, recently discharged from [facility] after being treated for hypernatremia was sent to the ER for worsening lethargy and altered mental status over the course of 1 week. Assessment: 1. Hypernatremia 2. Worsening lethargy and AMS 3. History of A.fib not on AC 4. History of Alzheimer's dementia Plan: * His AMS and lethargy appears to be slightly improved. * His Na level is improving. Goal is to correct by 6-8meq/24 hours. * Continue D5W @100ml/hr and monitor Na * Replace potassium * Monitor for signs of improvement with correction of sodium. * He failed his swallow eval again today. * Will keep him NPO. * Palliative consult - pending * Goals of care discussion with family. * Diet: NPO for now * DVT Prophylaxis: SC Lovenox * Code: DNR/DNI Problem List: 1. Hypernatremia Pain Ratin Pain Location: none Pain Goal: Remain pain free Pain Plan: none Tomorrow's Labs & Rationales: CBC, BEP Selwyn GRIFFIN,Nessa 09/10/17 1020: Attending MD Review Statement Attending Statement Attending MD Statement: examined this patient, discuss w/resident/PA/HISTOTECHNICIAN, agreed w/resident/PA/HISTOTECHNICIAN, reviewed EMR data (avail), discussed with nursing, discussed with case mgmt, reviewed images, amended to note Attending Assessment/Plan: Patient seen and examined, slightly more awake today. Patient not able to communicate well secondary to having advanced dementia. Sodium levels are slowly improving. Patient to get repeat swallow evaluation today. Vital Signs Date Time Temp Pulse Resp B/P B/P Pulse O2 O2 Flow FiO2 Mean Ox Delivery Rate 09/10 1021 63 09/10 0734 63 09/10 0620 97.8 82 20 141/87 99 Room Air 09/10 0415 66 09/10 0203 60 09/10 0003 56 09/09 2230 75 09/09 2214 98.0 20 135/83 96 Room Air 09/09 2000 72 09/09 1822 65 09/09 1600 71 09/09 1438 96.2 73 18 125/69 99 Room Air on exam; awake, nad. cv; s1,s2, rrr resp; clear abd; soft, nt, bs+ ext; no edema Laboratory Tests 09/10 09/10 09/09 09/09 0729 0300 1950 1520 Chemistry Sodium (137 - 145 mmol/L) 147 H 149 H 151 H 150 H Potassium (3.5 - 5.1 mmol/L) 3.2 L 3.4 L Chloride (98 - 107 mmol/L) 109 H 112 H Carbon Dioxide (22 - 30 mmol/L) 28 27 Anion Gap (5 - 16) 10 10 BUN (9 - 20 mg/dL) 16 18 Creatinine (0.7 - 1.2 mg/dL) 0.8 0.8 Estimated GFR (>60 ml/min) > 60 > 60 BUN/Creatinine Ratio (7 - 25 %) 20.0 22.5 Hematology CBC w Diff NO MAN DIFF REQ WBC (4.8 - 10.8 /CUMM) 8.4 RBC (4.70 - 6.10 /CUMM) 4.45 L Hgb (14.0 - 18.0 G/DL) 12.7 L Hct (42 - 52 %) 38.0 L MCV (80.0 - 94.0 FL) 85.4 MCH (27.0 - 31.0 PG) 28.6 MCHC (33.0 - 37.0 G/DL) 33.5 RDW (11.5 - 14.5 %) 14.9 H Plt Count (130 - 400 /CUMM) 238 MPV (7.4 - 10.4 FL) 8.4 Gran % (42.2 - 75.2 %) 78.3 H Lymphocytes % (20.5 - 51.1 %) 13.8 L Monocytes % (1.7 - 9.3 %) 6.2 Eosinophils % (0 - 5 %) 1.3 Basophils % (0.0 - 2.0 %) 0.4 Absolute Granulocytes (1.4 - 6.5 /CUMM) 6.5 Absolute Lymphocytes (1.2 - 3.4 /CUMM) 1.2 Absolute Monocytes (0.10 - 0.60 /CUMM) 0.5 Absolute Eosinophils (0.0 - 0.7 /CUMM) 0.1 Absolute Basophils (0.0 - 0.2 /CUMM) 0 Toxicology Phenytoin (10.0 - 20.0 ug/mL) 3.4 L A/P: 89 y/o M with pmh sig for Alzheimer's dementia, CAD, HTN, HLD, seizure disorder, GI bleed, blindness, paroxysmal A. fib, previous admission for hypernatremia admitted with lethargy, dehydration, Hypernatremia and mild metabolic encephalopathy on top of advanced dementia. Will continue IV fluids. Will add potassium to the IV fluids as patient hypokalemic. CAT scan shows constipation with stool impaction. Will start the patient on suppository and enema and if that doesn't work and he might require disimpaction. Once patient passed swallow eval, will start the patient on oral bowel regimen. Palliative care consult was obtained yesterday and Dr. Dumas to see the patient today. Continue the rest of the mx. DVT px; Lovenox.
[2017-09-10 08:14] LABS: ABSOLUTE BASOPHIL COUNT 0 /CUMM (0.0-0.2); ABSOLUTE EOSINOPHIL COUNT 0.1 /CUMM (0.0-0.7); ABSOLUTE GRANULOCYTE CT 6.5 /CUMM (1.4-6.5); ABSOLUTE LYMPH COUNT 1.2 /CUMM (1.2-3.4); ABSOLUTE MONOCYTE COUNT 0.5 /CUMM (0.10-0.60); BASOPHIL % 0.4 % (0.0-2.0); EOSINOPHIL % 1.3 % (0-5); GRANULOCYTE % 78.3 % (42.2-75.2); MEAN CORPUSCULAR HGB 28.6 PG (27.0-31.0); MEAN CORPUSCULAR HGB CONC 33.5 G/DL (33.0-37.0); MEAN CORPUSCULAR VOLUME 85.4 FL (80.0-94.0); MEAN PLATELET VOLUME 8.4 FL (7.4-10.4); PLATELET COUNT 238 /CUMM (130-400); RBC DISTRIBUTION WIDTH 14.9 % (11.5-14.5); RED BLOOD CELL CT 4.45 /CUMM (4.70-6.10); WHITE BLOOD CELL COUNT 8.4 /CUMM (4.8-10.8)
--- NOTE | 2017-09-10 12:32 | Cons- Palliative Care ---
General Information and HPI Consulting Request Date of Consult: 09/10/17 Requested By: Nessa Samano MD Reason for Consult: care/transition planning Source old records, housestaff Exam Limitations unable to give history History of Present Illness: 89M admitted to for change in mental status. Patient identified with hypernatremia manifested by Na 157. The palliative medicine team was consulted to assist with goals of care, symptom managment. Patient currently with advance directives of DNR/DNI. Per housestaff, family are not interested in aggressive nutritional support via PEG or NGT. At this time, patient is not swallowing and just pockets food placed in mouth. He resides in SNF and is suffering from advanced dementia. Allergies/Medications Allergies: Coded Allergies: adhesive (UNKNOWN 12/05/15) Home Med List: Aspirin (Ecotrin*) 81 MG TABLET.DR 1 TAB PO DAILY HEART HEALTH (Reported) Atorvastatin Calcium 40 MG TABLET 1 TAB PO DAILY CHOLESTEROL (Reported) Clopidogrel Bisulfate (Plavix) 75 MG TABLET 75 MG PO DAILY coronary artery disease Cyanocobalamin (Vitamin B-12) 1,000 MCG TABLET 1 TAB PO DAILY VITAMIN SUPPORT (Reported) Diltiazem HCl (Cardizem) 30 MG TABLET 1 TAB PO Q6 heart rate Docusate Sodium (Stool Softener) 50 MG CAPSULE 2 TAB PO DAILY CONSTIPATION ( Reported) Donepezil HCl (Aricept) 5 MG TABLET 1 TAB PO QPM MENTAL HEALTH (Reported) Folic Acid 1 MG TABLET 1 TAB PO DAILY VITAMIN SUPPORT (Reported) Furosemide 20 MG TABLET 20 MG PO DAILY diuresis Isosorbide Mononitrate (Isosorbide Mononitrate ER) 30 MG TAB.ER.24H 1 TAB PO DAILY HEART (Reported) Lisinopril 10 MG TABLET 1 TAB PO DAILY BP (Reported) Nitroglycerin (Nitrostat) (Unknown Strength) TAB.SUBL 0.3 MG SL AD PRN HEART (Reported) 1st sign of attack; may repeat every 5 minutes until relief; if pain persists after 3 tablets in 15 minutes, prompt medical att Omeprazole 20 MG TABLET.DR 1 TAB PO DAILY gastric protection Phenytoin Sodium Extended 100 MG CAPSULE 2 CAP PO BID SEIZURES (Reported) Risperidone 0.25 MG TABLET 1 TAB PO BID PRN AGITAT/HALLUCINATION/IRRITABIL Sennosides (Senna) 8.6 MG TABLET 2 TAB PO BID CONSTIPATION (Reported) Vit C/E/Zn/Coppr/Lutein/Zeaxan (Preservision Areds 2 Softgel) 250-200-40 CAPSULE 1 CAP PO BID EYE (Reported) Current Medications: Current Medications Sig/Karel Start time Last Medication Dose Route Stop Time Status Admin Aspirin Buffered 81 MG DAILY 09/09 0800 AC PO Bisacodyl 10 MG Q12 09/10 1053 AC ME Clopidogrel Bisulfate 75 MG DAILY 09/09 899 AC PO Dextrose/Water 1,000 ML .Q10H 09/09 1045 AC 09/10 IV 0512 Diltiazem HCl 30 MG Q6 09/09 0600 AC PO Docusate Sodium 100 MG DAILY 09/09 899 AC PO Enoxaparin Sodium 40 MG DAILY 09/09 1128 AC 09/10 SC 0835 Omeprazole 40 MG DAILY AC 09/09 0700 DC PO Pantoprazole Sodium 40 MG DAILY 09/09 1512 AC 09/10 IV 0836 Phenytoin 200 MG BID 09/09 2100 DC IV Phenytoin 200 MG BID 09/09 2100 AC 09/10 Sodium Chloride 100 ML IV 0837 Phenytoin 200 MG BID 09/09 0900 DC PO Potassium Chloride 40 MEQ Q10H 09/10 1130 AC Dextrose/Water 1,000 ML IV 09/10 2129 Potassium Chloride 10 MEQ Q1H 09/10 1030 DC IV 09/10 1131 Senna/Docusate Sodium 2 TAB DAILY 09/09 0900 AC PO Review of Systems Review of Systems: unable to obtain ROS secondary to derlirium/advanced dementia Past History Medical History Neurological: Alzheimer's disease, seizure, TIA EENT: LEGALLY BLIND Cardiovascular: aortic stenosis, CAD, hypertension, hyperlipidemia Respiratory: bronchitis Gastrointestinal: GI bleed Hepatic: NONE Renal: NONE Musculoskeletal: NONE Psychiatric: NONE Endocrine: NONE Blood Disorders: NONE Cancer(s): NONE CONSTRUCTION REP/Reproductive: NONE Surgical History Surgical History: appendectomy, cataract removal, hernia repair-inguinal, L carotid endarterectomy Family History Relations & Conditions If Any MOTHER FH: diabetes mellitus Psychosocial History Where Do You Live? [facility] Facility Services at Home: None Primary Language: Albanian Smoking Status: Former Smoker ETOH Use: denies use Illicit Drug Use: denies illicit drug use Karnofsky Performance Scale: 20 Living Will? unknown Power of Hand Marker/HCP? unknown Functional Ability ADLs Independent: dressing, eating, toileting, bathing. Ambulation: independent IADLs Needs Assist: shopping, housework, finances, food prep, telephone, transportation, medication admin. Exam & Diagnostic Data Last 24 Hrs of Vitals/I&Os: Vital Signs Date Time Temp Pulse Resp B/P B/P Pulse O2 O2 Flow FiO2 Mean Ox Delivery Rate 09/10 1021 63 09/10 0734 63 09/10 0620 97.8 82 20 141/87 99 Room Air 09/10 0415 66 09/10 0203 60 09/10 0003 56 09/09 2230 75 09/09 2214 98.0 20 135/83 96 Room Air 09/09 2000 72 09/09 1822 65 09/09 1600 71 09/09 1438 96.2 73 18 125/69 99 Room Air Intake & Output 09/10 1600 09/10 0800 09/10 0000 Intake Total 700 300 Output Total Balance 700 300 Intake, IV 700 300 Intake, Oral 0 0 Number 1 0 Bowel Movements Patient 123 lb Weight Physical Exam: elderly male, in bed, arousable, not oriented Lungs - rhonchi CV - RRR Abd - soft Extr - no C/C Neuro - arousable Diagnostic Data Lab/Micro/Pathology Results: Laboratory Tests 09/10/17 0729: Anion Gap 10, Estimated GFR > 60, BUN/Creatinine Ratio 20.0, CBC w Diff NO MAN DIFF REQ, RBC 4.45 L, MCV 85.4, MCH 28.6, MCHC 33.5, RDW 14.9 H, MPV 8.4, Gran % 78.3 H, Lymphocytes % 13.8 L, Monocytes % 6.2, Eosinophils % 1.3, Basophils % 0.4, Absolute Granulocytes 6.5, Absolute Lymphocytes 1.2, Absolute Monocytes 0.5, Absolute Eosinophils 0.1, Absolute Basophils 0, Phenytoin 3.4 L 09/10/17 0300: Anion Gap 10, Estimated GFR > 60, BUN/Creatinine Ratio 22.5 09/09/17 1950: 09/09/17 1520: Assessment/Plan Assessment 89M admitted with delirium on top of advanced dementia in setting of electrolyte disturbance Patient's Condition: serious Prognosis: grave Is Patient Decisional? no Case Discussed With: house staff Goals of Care: limited medical treatment Treatment Preferences: 1. Continue with correction of electrolytes/fluids as you are doing 2. Delirium may persist for some time even after correction of metabolic abnormalities. 3. A time limited trial of supportive care (IVF) is reasonable while awaiting return to previous level of function 4. Consider transition to comfort-only measures if patient is not regaining ability to tolerate PO intake. 5. Avoid aggressive medical interventions should his condition deteriorate Consult Acknowledgment - Thank you for your consult request.
[2017-09-10 13:47] VITALS: BP 140/70
[2017-09-10 20:00] VITALS: BP 90/46
[2017-09-11 06:00] VITALS: BP 94/58
--- NOTE | 2017-09-11 07:17 | PN- Housestaff ---
Andres GRIFFIN,[facility] 09/11/17 0716: Subjective Follow-up For: Hypernatremia AMS Subjective: Patient seen and examined. Appears to be doing better than yesterday. Is able to convey that he is not experiencing any pain. No further ROS could be obtained. Review of Systems Constitutional: Reports: no symptoms. Objective Last 24 Hrs of Vital Signs/I&O Vital Signs Date Time Temp Pulse Resp B/P B/P Pulse O2 O2 Flow FiO2 Mean Ox Delivery Rate 09/11 06 98.0 62 20 94/58 95 Room Air 09/11 0400 61 / 0200 65 /08 0000 57 / 2352 65 90/46 / 2200 65 / 2000 74 / 2000 98.7 20 90/46 94 Room Air / 1800 83 / 1347 98.4 81 20 140/70 99 Room Air 09/10 1021 63 Intake & Output 09/11 1600 09/11 0800 06 0000 Intake Total 600 400 Output Total Balance 600 400 Intake, IV 600 400 Number 2 2 Bowel Movements Physical Exam General Appearance: Cooperative, Mild Distress, awake Skin: No Rashes, No Breakdown Skin Temp/Moisture Exam: Warm/Dry Sepsis Skin Exam (color): Normal for Ethnicity HEENT: Atraumatic Cardiovascular: Normal S1, Normal S2, ejection systolic murmur Lungs: Normal Air Movement Abdomen: Soft, No Tenderness Neurological: Normal Speech Extremities: No Edema Last 24 Hrs of Lab/Carlos A Results Last 24 Hrs of Labs/Mics: Laboratory Tests 09/11/17 0656: Sodium Pending, Potassium Pending, Chloride Pending, Carbon Dioxide Pending, Anion Gap Pending, BUN Pending, Creatinine Pending, BUN/Creatinine Ratio Pending , CBC w Diff Pending, WBC Pending, RBC Pending, Hgb Pending, Hct Pending, MCV Pending, MCH Pending, MCHC Pending, RDW Pending, Plt Count Pending, MPV Pending, Gran % Pending, Lymphocytes % Pending, Monocytes % Pending, Eosinophils % Pending, Basophils % Pending, Absolute Granulocytes Pending, Absolute Lymphocytes Pending, Absolute Monocytes Pending, Absolute Eosinophils Pending, Absolute Basophils Pending 09/10/17 2250: 09/10/17 1915: Assessment/Plan Assessment: 89-year-old male male with PMH of Alzheimer dementia, hypertension, hyperlipidemia, seziure, legal blindness, atrial fibrillation not on anticoagulation, CAD, CHF with of EF 35%, recently discharged from [facility] after being treated for hypernatremia was sent to the ER for worsening lethargy and altered mental status over the course of 1 week. Assessment: 1. Hypernatremia - resolved 2. Worsening lethargy and AMS 3. History of A.fib not on AC 4. History of Alzheimer's dementia Plan: * His AMS and lethargy appears to be slightly improved. * His Na level is back to normal. * Continue D5W @100ml/hr and will monitor Na daily * Repeat swallow eval today. * Will keep him NPO as he pockets food in his mouth. * His prognosis is poor with advanced dementia. * Discussed goals of care with family yesterday. Will follow up today or tomorrow. * Diet: NPO * DVT Prophylaxis: SC Lovenox * Code: DNR/DNI Problem List: 1. Dehydration Pain Ratin Pain Location: none Pain Goal: Remain pain free Pain Plan: none Tomorrow's Labs & Rationales: CBC, BEP Selwyn GRIFFIN,Nessa 09/11/17 1050: Attending MD Review Statement Attending Statement Attending MD Statement: examined this patient, discuss w/resident/PA/TEST DESK OPERATOR, agreed w/resident/PA/TEST DESK OPERATOR, reviewed EMR data (avail), discussed with nursing, discussed with case mgmt, reviewed images, amended to note Attending Assessment/Plan: Patient seen and examined, remains lethargic. In the morning he was reportedly more awake. Sodium level is normalized. Vital Signs Date Time Temp Pulse Resp B/P B/P Pulse O2 O2 Flow FiO2 Mean Ox Delivery Rate 09/11 06 98.0 62 20 94/58 95 Room Air 09/11 0400 61 09/11 0200 65 / 0000 57 09/10 2352 65 90/46 09/10 2200 65 / 2000 74 09/10 2000 98.7 20 90/46 94 Room Air 09/10 1800 83 09/10 1347 98.4 81 20 140/70 99 Room Air on exam; lethargic, nad. cv; s1,s2, rrr, + systolic murmur resp; clear abd; soft, nt, bs+ ext; no edema Laboratory Tests 09/11 09/10 09/10 0656 [id number] 1915 Chemistry Sodium (137 - 145 mmol/L) 144 140 140 Potassium (3.5 - 5.1 mmol/L) 4.1 Chloride (98 - 107 mmol/L) 110 H Carbon Dioxide (22 - 30 mmol/L) 25 Anion Gap (5 - 16) 9 BUN (9 - 20 mg/dL) 17 Creatinine (0.7 - 1.2 mg/dL) 1.0 Estimated GFR (>60 ml/min) > 60 BUN/Creatinine Ratio (7 - 25 %) 17.0 Hematology CBC w Diff NO MAN DIFF REQ WBC (4.8 - 10.8 /CUMM) 12.1 H RBC (4.70 - 6.10 /CUMM) 4.23 L Hgb (14.0 - 18.0 G/DL) 12.3 L Hct (42 - 52 %) 35.7 L MCV (80.0 - 94.0 FL) 84.4 MCH (27.0 - 31.0 PG) 29.0 MCHC (33.0 - 37.0 G/DL) 34.4 RDW (11.5 - 14.5 %) 15.2 H Plt Count (130 - 400 /CUMM) 253 MPV (7.4 - 10.4 FL) 8.4 Gran % (42.2 - 75.2 %) 84.4 H Lymphocytes % (20.5 - 51.1 %) 8.3 L Monocytes % (1.7 - 9.3 %) 6.8 Eosinophils % (0 - 5 %) 0.3 Basophils % (0.0 - 2.0 %) 0.2 Absolute Granulocytes (1.4 - 6.5 /CUMM) 10.2 H Absolute Lymphocytes (1.2 - 3.4 /CUMM) 1.0 L Absolute Monocytes (0.10 - 0.60 /CUMM) 0.8 H Absolute Eosinophils (0.0 - 0.7 /CUMM) 0 Absolute Basophils (0.0 - 0.2 /CUMM) 0 A/P; 89 y/o M with pmh sig for Alzheimer's dementia, CAD, HTN, HLD, seizure disorder, GI bleed, blindness, paroxysmal A. fib, previous admission for hypernatremia admitted with lethargy, dehydration, Hypernatremia and mild metabolic encephalopathy on top of advanced dementia. Potassium is corrected. Sodium is now normalized. Patient remains an IV fluids. Patient with a repeat swallow eval today. If he continues to feel then we would have to revisit the family about decision for comfort care. We did have a lengthy meeting with the family members yesterday which included patient' s and his 2 sons. We did discuss about the fact that patient has failed swallow evaluation 2. We also discussed the fact that his is likely secondary to his advanced dementia which is further progressing. We also discussed the fact that it is unlikely that his condition will be reversed. We decided to wait another 24-48 hours to his sodium gets corrected to see if he comes back to his baseline. If he continues to fail swallow eval then the family will revisit the decision about possibly making him comfort care/hospice. In the meantime we will continue gentle IV hydration and the rest of his medications. Constipation is relieved. DVT px; Lovenox.
[2017-09-11 07:40] LABS: ABSOLUTE BASOPHIL COUNT 0 /CUMM (0.0-0.2); ABSOLUTE EOSINOPHIL COUNT 0 /CUMM (0.0-0.7); ABSOLUTE GRANULOCYTE CT 10.2 /CUMM (1.4-6.5); ABSOLUTE MONOCYTE COUNT 0.8 /CUMM (0.10-0.60); BASOPHIL % 0.2 % (0.0-2.0); EOSINOPHIL % 0.3 % (0-5); HEMATOCRIT 35.7 % (42-52); MEAN CORPUSCULAR HGB CONC 34.4 G/DL (33.0-37.0); MEAN CORPUSCULAR VOLUME 84.4 FL (80.0-94.0); MEAN PLATELET VOLUME 8.4 FL (7.4-10.4); PLATELET COUNT 253 /CUMM (130-400); RBC DISTRIBUTION WIDTH 15.2 % (11.5-14.5); RED BLOOD CELL CT 4.23 /CUMM (4.70-6.10); WHITE BLOOD CELL COUNT 12.1 /CUMM (4.8-10.8)
[2017-09-11 08:49] LABS: GRANULOCYTE % 84.4 % (42.2-75.2)
[2017-09-11 14:02] VITALS: BP 99/70
--- NOTE | 2017-09-11 15:29 | Patient Discharge Instructions ---
Discharge Instructions General Discharge Information You were seen/treated for: Hypernatremia Dehydration Diet Continue normal diet: No Activity Full Activity/No Limits: No Activity Self Limited: Yes Acute Coronary Syndrome Inclusion Criteria At DC or during hospital stay patient has or had the following: ACS DIAGNOSIS No Discharge Core Measures Meds if any: Prescribed or Continued at Discharge Meds if any: NOT Prescribed or Continued at Discharge Congestive Heart Failure Inclusion Criteria At DC or during hospital stay patient has or had the following: CHF DIAGNOSIS No Discharge Core Measures Meds if any: Prescribed or Continued at Discharge Meds if any: NOT Prescribed or Continued at Discharge Cerebrovascular accident Inclusion Criteria At DC or during hospital stay patient has or had the following: CVA/TIA Diagnosis No Discharge Core Measures Meds if any: Prescribed or Continued at Discharge Meds if any: NOT Prescribed or Continued at Discharge Venous thromboembolism Inclusion Criteria VTE Diagnosis No VTE Type NONE VTE Confirmed by (Test) NONE Discharge Core Measures - Per Current guidelines, there needs to be overlap - treatment for the first 5 days of Warfarin therapy. - If discharged on Warfarin prior to 5 days of - overlap therapy, the patient will need to be - assessed for post discharge needs including - *Post discharge parental anticoagulation - *Warfarin and/or parental anticoagulation education - *Follow up date to check INR post discharge At least 5 days overlap therapy as Inpatient No Meds if any: Prescribed or Continued at Discharge Note: Overlap Therapy is Warfarin and Anticoagulant Meds if any: NOT Prescribed or Continued at Discharge Meds if any: NOT Prescribed or Continued at Discharge
[2017-09-11 22:26] VITALS: BP 100/60
[2017-09-12 06:20] VITALS: BP 108/62
--- NOTE | 2017-09-12 07:56 | PN- Housestaff ---
Subjective Follow-up For: hypernatremia dehydration Complaints: pt unable to provide hx Subjective: patient seen and examined. He is lethargic with incoherent speech. Unable to offer any complaints. Review of Systems Constitutional: Reports: no symptoms. Objective Last 24 Hrs of Vital Signs/I&O Vital Signs Date Time Temp Pulse Resp B/P B/P Pulse O2 O2 Flow FiO2 Mean Ox Delivery Rate 09/12 0650 77 108/62 / 0620 98.4 77 20 108/62 93 Room Air 09/11 2358 69 100/60 /08 2226 98.1 69 20 100/60 92 /08 1402 98.2 72 18 99/70 95 Room Air 09/11 1119 Room Air Intake & Output 09/12 1600 09/12 0800 09/12 0000 Intake Total 525 225 Output Total Balance 525 225 Intake, IV 525 225 Intake, Oral 0 0 Number 0 1 Bowel Movements Physical Exam General Appearance: Mild Distress, awake, lethargic Skin: No Rashes, No Breakdown Skin Temp/Moisture Exam: Warm/Dry Sepsis Skin Exam (color): Normal for Ethnicity HEENT: Atraumatic Cardiovascular: Normal S1, Normal S2, AMADOR Lungs: Normal Air Movement Abdomen: Soft, No Tenderness Extremities: No Edema Last 24 Hrs of Lab/Carlos A Results Last 24 Hrs of Labs/Mics: Laboratory Tests 09/12/17 0707: Anion Gap 10, Estimated GFR > 60, BUN/Creatinine Ratio 14.3, CBC w Diff NO MAN DIFF REQ, RBC 3.76 L, MCV 85.1, MCH 28.8, MCHC 33.8, RDW 15.8 H, MPV 9.1, Gran % 79.2 H, Lymphocytes % 11.6 L, Monocytes % 6.9, Eosinophils % 1.9, Basophils % 0.4, Absolute Granulocytes 6.3, Absolute Lymphocytes 0.9 L, Absolute Monocytes 0.5, Absolute Eosinophils 0.2, Absolute Basophils 0 Assessment/Plan Assessment: 89-year-old male male with PMH of Alzheimer dementia, hypertension, hyperlipidemia, seziure, legal blindness, atrial fibrillation not on anticoagulation, CAD, CHF with of EF 35%, recently discharged from [facility] after being treated for hypernatremia was sent to the ER for worsening lethargy and altered mental status over the course of 1 week. Assessment: 1. Hypernatremia - resolved 2. Worsening lethargy and AMS 3. History of A.fib not on AC 4. History of Alzheimer's dementia Plan: * His AMS and lethargy appear unchanged from yesterday. . * Continue D5W @100ml/hr with KCL to correct K * Repeat swallow eval on Thursday * Will keep him NPO. * His prognosis is poor with advanced dementia. * Discussed goals of care with family yesterday. They want to continue supportive care for now and think about comfort measures. * Diet: NPO * DVT Prophylaxis: SC Lovenox * Code: DNR/DNI Problem List: 1. Hypernatremia Pain Ratin Pain Location: none Pain Goal: Remain pain free Pain Plan: none Tomorrow's Labs & Rationales: CBC, BEP
[2017-09-12 08:25] LABS: ABSOLUTE BASOPHIL COUNT 0 /CUMM (0.0-0.2); ABSOLUTE EOSINOPHIL COUNT 0.2 /CUMM (0.0-0.7); ABSOLUTE GRANULOCYTE CT 6.3 /CUMM (1.4-6.5); ABSOLUTE LYMPH COUNT 0.9 /CUMM (1.2-3.4); ABSOLUTE MONOCYTE COUNT 0.5 /CUMM (0.10-0.60); BASOPHIL % 0.4 % (0.0-2.0); EOSINOPHIL % 1.9 % (0-5); GRANULOCYTE % 79.2 % (42.2-75.2); MEAN CORPUSCULAR HGB 28.8 PG (27.0-31.0); MEAN CORPUSCULAR HGB CONC 33.8 G/DL (33.0-37.0); MEAN CORPUSCULAR VOLUME 85.1 FL (80.0-94.0); MEAN PLATELET VOLUME 9.1 FL (7.4-10.4); PLATELET COUNT 167 /CUMM (130-400); RBC DISTRIBUTION WIDTH 15.8 % (11.5-14.5); RED BLOOD CELL CT 3.76 /CUMM (4.70-6.10); WHITE BLOOD CELL COUNT 7.9 /CUMM (4.8-10.8)
--- NOTE | 2017-09-12 08:42 | PN- Att Addend ---
Attending Addendum Attending Brief Note Patient seen and examined. Plan of care discussed with the medical team and the patient. Available lab work and radiology test reports were reviewed. Patient' s has history of dementia and he does not answer question and appears disoriented. Patient is currently nothing by mouth. Assessment * Dysphagia * History of CAD * History of seizure disorder * History of hypertension * His hyperlipidemia * History of paroxysmal A. fib * Hyperkalemia Plan * Keep nothing by mouth for now and support with IV fluids; add KCl to IV fluids to correct potassium * Follow potassium level tomorrow * Will need repeat swallow eval on Thursday * Repeat CBC tomorrow; patient may need a chest x-ray if he becomes febrile or develops a history symptoms given that he is at risk for aspiration based on his dysphagia. Exam: General: Patient awake appears lethargic and disoriented without any distress CVS: S1 plus S2 without any murmur or gallops Chest: Few scattered crepitation without any wheeze. There is no respiratory distress. Abdomen: Soft non-tender, bowel sound present, no guarding or rebound FLYING II INSTRUCTOR: Awake lethargic without any focal neuro deficit and does not follow commands appropriately Extremities: No edema; no clubbing or cyanosis noted Current Medications Sig/Karel Start time Last Medication Dose Route Stop Time Status Admin Aspirin Buffered 81 MG DAILY 09/09 899 AC PO Bisacodyl 10 MG Q12 PRN 09/11 0734 AC MS Clopidogrel Bisulfate 75 MG DAILY 09/09 899 AC PO Dextrose/Sodium 1,000 ML Q13H 09/11 0915 AC 09/12 Chloride IV 0402 Diltiazem HCl 30 MG Q6 09/09 599 AC PO Docusate Sodium 100 MG DAILY 09/09 899 AC PO Enoxaparin Sodium 40 MG DAILY 09/09 1128 AC 09/12 SC 0739 Pantoprazole Sodium 40 MG DAILY 09/09 1512 AC 09/12 IV 0739 Phenytoin 200 MG BID 09/09 2100 AC 09/12 Sodium Chloride 100 ML IV 0738 Potassium Chloride 40 MEQ Q13H 09/10 2045 DC 09/10 Sodium Chloride 1,000 ML IV 2142 Senna/Docusate Sodium 2 TAB DAILY 09/09 899 AC PO Laboratory Tests 09/12/17 0707: Anion Gap 10, Estimated GFR > 60, BUN/Creatinine Ratio 14.3, CBC w Diff Pending, WBC Pending, RBC Pending, Hgb Pending, Hct Pending, MCV Pending, MCH Pending, MCHC Pending, RDW Pending, Plt Count Pending, MPV Pending 09/11/17 0656: Anion Gap 9, Estimated GFR > 60, BUN/Creatinine Ratio 17.0, CBC w Diff NO MAN DIFF REQ, RBC 4.23 L, MCV 84.4, MCH 29.0, MCHC 34.4, RDW 15.2 H, MPV 8.4, Gran % 84.4 H, Lymphocytes % 8.3 L, Monocytes % 6.8, Eosinophils % 0.3, Basophils % 0.2, Absolute Granulocytes 10.2 H, Absolute Lymphocytes 1.0 L, Absolute Monocytes 0.8 H, Absolute Eosinophils 0, Absolute Basophils 0 09/10/17 2250: 09/10/17 1915: 09/10/17 0729: Anion Gap 10, Estimated GFR > 60, BUN/Creatinine Ratio 20.0, CBC w Diff NO MAN DIFF REQ, RBC 4.45 L, MCV 85.4, MCH 28.6, MCHC 33.5, RDW 14.9 H, MPV 8.4, Gran % 78.3 H, Lymphocytes % 13.8 L, Monocytes % 6.2, Eosinophils % 1.3, Basophils % 0.4, Absolute Granulocytes 6.5, Absolute Lymphocytes 1.2, Absolute Monocytes 0.5, Absolute Eosinophils 0.1, Absolute Basophils 0, Phenytoin 3.4 L 09/10/17 0300: Anion Gap 10, Estimated GFR > 60, BUN/Creatinine Ratio 22.5 09/09/17 1950: 09/09/17 1520: 09/09/17 0910: Vital Signs Date Time Temp Pulse Resp B/P B/P Pulse O2 O2 Flow FiO2 Mean Ox Delivery Rate 09/12 0650 77 108/62 09/12 0620 98.4 77 20 108/62 93 Room Air 08 2358 69 100/60 08 2226 98.1 69 20 100/60 92 /08 1402 98.2 72 18 99/70 95 Room Air 08 1119 Room Air Intake & Output 09/12 1600 09/12 0800 09/12 0000 Intake Total 525 225 Output Total Balance 525 225 Intake, IV 525 225 Intake, Oral 0 0 Number 0 1 Bowel Movements Laboratory Tests 09/12 0707 Chemistry Sodium (137 - 145 mmol/L) 143 Potassium (3.5 - 5.1 mmol/L) 3.1 L Chloride (98 - 107 mmol/L) 109 H Carbon Dioxide (22 - 30 mmol/L) 24 Anion Gap (5 - 16) 10 BUN (9 - 20 mg/dL) 10 Creatinine (0.7 - 1.2 mg/dL) 0.7 Estimated GFR (>60 ml/min) > 60 BUN/Creatinine Ratio (7 - 25 %) 14.3 Hematology CBC w Diff NO MAN DIFF REQ WBC (4.8 - 10.8 /CUMM) 7.9 RBC (4.70 - 6.10 /CUMM) 3.76 L Hgb (14.0 - 18.0 G/DL) 10.8 L Hct (42 - 52 %) 32.0 L MCV (80.0 - 94.0 FL) 85.1 MCH (27.0 - 31.0 PG) 28.8 MCHC (33.0 - 37.0 G/DL) 33.8 RDW (11.5 - 14.5 %) 15.8 H Plt Count (130 - 400 /CUMM) 167 MPV (7.4 - 10.4 FL) 9.1 Gran % (42.2 - 75.2 %) 79.2 H Lymphocytes % (20.5 - 51.1 %) 11.6 L Monocytes % (1.7 - 9.3 %) 6.9 Eosinophils % (0 - 5 %) 1.9 Basophils % (0.0 - 2.0 %) 0.4 Absolute Granulocytes (1.4 - 6.5 /CUMM) 6.3 Absolute Lymphocytes (1.2 - 3.4 /CUMM) 0.9 L Absolute Monocytes (0.10 - 0.60 /CUMM) 0.5 Absolute Eosinophils (0.0 - 0.7 /CUMM) 0.2 Absolute Basophils (0.0 - 0.2 /CUMM) 0
[2017-09-12 14:17] VITALS: BP 100/60
--- NOTE | 2017-09-12 15:45 | RADIOLOGY REPORT ---
EXAMINATION: XR PORTABLE CHEST CLINICAL INFORMATION: Poor swallowing. Reflux. Aspiration pneumonia. Leukocytosis. COMPARISON: Chest radiography 09/08/2017. TECHNIQUE: Portable frontal view of the chest was obtained. FINDINGS: The lungs are well expanded. Nonspecific mild peribronchial thickening/bronchovascular prominence at the right lower lung. No other lobar consolidation, pleural effusion, pulmonary edema, or pneumothorax. No mediastinal widening. Aortic atherosclerotic calcification. No acute osseous abnormalities. IMPRESSION: Nonspecific mild peribronchial thickening/bronchovascular prominence in the right lower lung; findings may represent local small airways inflammation or possibly early pneumonia.
[2017-09-12 21:48] VITALS: BP 165/91
[2017-09-13 05:41] VITALS: BP 150/69
--- NOTE | 2017-09-13 08:06 | PN- Housestaff ---
Subjective Follow-up For: AMS Hypernatremia Subjective: patient seen and examined. Appeared to be resting comfortably. Woken with deep sternal rub. He is incoherent. Unable to offer any history or complaints. Review of Systems Constitutional: Reports: no symptoms. Objective Last 24 Hrs of Vital Signs/I&O Vital Signs Date Time Temp Pulse Resp B/P B/P Pulse O2 O2 Flow FiO2 Mean Ox Delivery Rate 09/13 0541 98.2 87 24 150/69 94 Room Air 09/12 2148 98.8 88 20 165/91 95 09/12 1720 98.0 68 20 100/60 09/12 1417 98.0 68 20 100/60 97 Room Air 09/12 1315 98.4 77 20 108/62 Intake & Output 09/13 1600 09/13 0800 09/13 0000 Intake Total 600 300 Output Total Balance 600 300 Intake, IV 600 300 Intake, Oral 0 Number 1 2 Bowel Movements Patient 136 lb Weight Physical Exam General Appearance: awake, lethargic Skin: No Rashes, No Breakdown Skin Temp/Moisture Exam: Warm/Dry Sepsis Skin Exam (color): Normal for Ethnicity HEENT: Atraumatic Cardiovascular: Normal S1, Normal S2, AMADOR Lungs: Clear to Auscultation, Normal Air Movement Abdomen: Soft, No Tenderness Neurological: Normal Speech Extremities: No Edema Assessment/Plan Assessment: 89-year-old male male with PMH of Alzheimer dementia, hypertension, hyperlipidemia, seziure, legal blindness, atrial fibrillation not on anticoagulation, CAD, CHF with of EF 35%, recently discharged from [facility] after being treated for hypernatremia was sent to the ER for worsening lethargy and altered mental status over the course of 1 week. Assessment: 1. Hypernatremia - resolved 2. Worsening lethargy and AMS 3. History of A.fib not on AC 4. History of Alzheimer's dementia Plan: * patient is still lethargic with minimal improvement since he came in. * Continue D5W @100ml/hr * Repeat swallow eval tomorrow * continue NPO * His prognosis is poor with advanced dementia. * Discussed goals of care with family again tomorrow. They want to continue supportive care for now and think about comfort measures. * Diet: NPO * DVT Prophylaxis: SC Lovenox * Code: DNR/DNI Problem List: 1. Dehydration Pain Ratin Pain Location: none Pain Goal: Remain pain free Pain Plan: none Tomorrow's Labs & Rationales: BEP
[2017-09-13 08:36] LABS: ABSOLUTE BASOPHIL COUNT 0 /CUMM (0.0-0.2); ABSOLUTE EOSINOPHIL COUNT 0.1 /CUMM (0.0-0.7); ABSOLUTE GRANULOCYTE CT 13.5 /CUMM (1.4-6.5); ABSOLUTE LYMPH COUNT 0.8 /CUMM (1.2-3.4); ABSOLUTE MONOCYTE COUNT 0.9 /CUMM (0.10-0.60); BASOPHIL % 0.2 % (0.0-2.0); EOSINOPHIL % 0.4 % (0-5); GRANULOCYTE % 88.1 % (42.2-75.2); MEAN CORPUSCULAR HGB 28.6 PG (27.0-31.0); MEAN CORPUSCULAR HGB CONC 34.1 G/DL (33.0-37.0); MEAN CORPUSCULAR VOLUME 83.9 FL (80.0-94.0); MEAN PLATELET VOLUME 9.2 FL (7.4-10.4); RBC DISTRIBUTION WIDTH 15.1 % (11.5-14.5); RED BLOOD CELL CT 4.48 /CUMM (4.70-6.10)
[2017-09-13 09:50] LABS: HEMATOCRIT 37.6 % (42-52); PLATELET COUNT 276 /CUMM (130-400); WHITE BLOOD CELL COUNT 15.3 /CUMM (4.8-10.8)
--- NOTE | 2017-09-13 11:29 | PN- Att Addend ---
Attending Addendum Attending Brief Note Patient seen and examined. Plan of care discussed with the medical team and the patient. Available lab work and radiology test reports were reviewed. Patient' s has history of dementia and he does not answer question and appears disoriented. Patient today appears much more lethargic and barely arousable. He does not interact and appears to be morning. Patient is currently nothing by mouth. Assessment * Dysphagia * History of CAD * History of seizure disorder * History of hypertension * His hyperlipidemia * History of paroxysmal A. fib * Hypokalemia- improved * Urinary retention * Increased WBC count * Suspected right lower lobe pneumonia-possibly related to aspiration Plan * Begin IV Unasyn to treat pneumonia * Repeat CBC tomorrow * Aspiration precaution with elevation of the head to at least 30 * Keep nothing by mouth for now and support with IV fluids; add KCl to IV fluids to correct potassium * Follow potassium level tomorrow * Will need repeat swallow eval on Thursday * Patient may be candidate for hospice care and prognosis remains poor. Please consider reassessment by palliative care Tomorrow. Exam: General: Patient awake appears lethargic and disoriented without any distress CVS: S1 plus S2 without any murmur or gallops Chest: Few scattered crepitation without any wheeze. There is no respiratory distress. Abdomen: Soft non-tender, bowel sound present, no guarding or rebound PARATRANSIT DRIVER: Awake lethargic without any focal neuro deficit and does not follow commands appropriately Extremities: No edema; no clubbing or cyanosis noted Current Medications Sig/Karel Start time Last Medication Dose Route Stop Time Status Admin Aspirin Buffered 81 MG DAILY 09/09 899 AC PO Bisacodyl 10 MG Q12 PRN 09/11 0734 AC WI Clopidogrel Bisulfate 75 MG DAILY 09/09 899 AC PO Dextrose/Sodium 1,000 ML Q13H 09/11 0915 AC 09/13 Chloride IV 0412 Diltiazem HCl 30 MG Q6 09/09 599 AC PO Docusate Sodium 100 MG DAILY 09/09 899 AC PO Enoxaparin Sodium 40 MG DAILY 09/09 1128 AC 09/13 SC 0738 Pantoprazole Sodium 40 MG DAILY 09/09 1512 AC 09/13 IV 0738 Phenytoin 200 MG BID 09/09 2100 AC 09/13 Sodium Chloride 100 ML IV 0737 Potassium Chloride 40 MEQ Q13H 09/12 1115 DC 09/12 Dextrose/Water 1,000 ML IV 09/13 0014 1314 Senna/Docusate Sodium 2 TAB DAILY 09/09 0900 AC 09/13 PO 0739 Laboratory Tests 09/13 0700 Chemistry Sodium (137 - 145 mmol/L) 138 Potassium (3.5 - 5.1 mmol/L) 3.5 Chloride (98 - 107 mmol/L) 106 Carbon Dioxide (22 - 30 mmol/L) 20 L Anion Gap (5 - 16) 12 BUN (9 - 20 mg/dL) 6 L Creatinine (0.7 - 1.2 mg/dL) 0.8 Estimated GFR (>60 ml/min) > 60 BUN/Creatinine Ratio (7 - 25 %) 7.5 Hematology CBC w Diff NO MAN DIFF REQ WBC (4.8 - 10.8 /CUMM) 15.3 H RBC (4.70 - 6.10 /CUMM) 4.48 L Hgb (14.0 - 18.0 G/DL) 12.8 L Hct (42 - 52 %) 37.6 L MCV (80.0 - 94.0 FL) 83.9 MCH (27.0 - 31.0 PG) 28.6 MCHC (33.0 - 37.0 G/DL) 34.1 RDW (11.5 - 14.5 %) 15.1 H Plt Count (130 - 400 /CUMM) 276 MPV (7.4 - 10.4 FL) 9.2 Gran % (42.2 - 75.2 %) 88.1 H Lymphocytes % (20.5 - 51.1 %) 5.4 L Monocytes % (1.7 - 9.3 %) 5.9 Eosinophils % (0 - 5 %) 0.4 Basophils % (0.0 - 2.0 %) 0.2 Absolute Granulocytes (1.4 - 6.5 /CUMM) 13.5 H Absolute Lymphocytes (1.2 - 3.4 /CUMM) 0.8 L Absolute Monocytes (0.10 - 0.60 /CUMM) 0.9 H Absolute Eosinophils (0.0 - 0.7 /CUMM) 0.1 Absolute Basophils (0.0 - 0.2 /CUMM) 0 Vital Signs Date Time Temp Pulse Resp B/P B/P Pulse O2 O2 Flow FiO2 Mean Ox Delivery Rate 09/13 0541 98.2 87 24 150/69 94 Room Air 09/12 2148 98.8 88 20 165/91 95 / 1720 98.0 68 20 100/60 09/12 1417 98.0 68 20 100/60 97 Room Air 09/12 1315 98.4 77 20 108/62 Intake & Output 09/13 1600 09/13 0800 09/13 0000 Intake Total 600 300 Output Total Balance 600 300 Intake, IV 600 300 Intake, Oral 0 Number 1 2 Bowel Movements Patient 136 lb Weight CXR Mack 9 Nonspecific mild peribronchial thickening/bronchovascular prominence in the right lower lung; findings may represent local small airways inflammation or possibly early pneumonia.
[2017-09-13 13:57] VITALS: BP 116/66
[2017-09-13 22:11] VITALS: BP 100/60
[2017-09-14 06:00] VITALS: BP 112/70
--- NOTE | 2017-09-14 07:10 | PN- Housestaff ---
Andres GRIFFIN,[facility] 09/14/17 0710: Subjective Follow-up For: Hypernatremia AMS Complaints: pt unable to provide hx Subjective: Patient seen and examined. Is awake, alert and responsive. Talks but is incoherent. Unable to offer any complaints. Review of Systems Constitutional: Reports: no symptoms. Objective Last 24 Hrs of Vital Signs/I&O Vital Signs Date Time Temp Pulse Resp B/P B/P Pulse O2 O2 Flow FiO2 Mean Ox Delivery Rate 09/13 2211 97.8 82 20 100/60 94 09/13 1600 Room Air 09/13 1357 98.3 94 18 116/66 4 Room Air 09/13 1312 98.2 87 24 150/69 Intake & Output 09/14 0800 09/14 0000 09/13 1600 Intake Total 600 600 700 Output Total 256 829 2447 Balance 250 0 -1000 Intake, IV 600 600 700 Intake, Oral 0 0 Number 1 1 Bowel Movements Output, Urine 328 678 1410 Physical Exam General Appearance: Alert, Cooperative, Mild Distress, awake Skin: No Rashes, No Breakdown Skin Temp/Moisture Exam: Warm/Dry Sepsis Skin Exam (color): Normal for Ethnicity HEENT: Atraumatic Cardiovascular: Normal S1, Normal S2, AMADOR Lungs: Clear to Auscultation, Normal Air Movement Abdomen: Soft, No Tenderness Neurological: Normal Speech Extremities: No Edema Last 24 Hrs of Lab/Carlos A Results Last 24 Hrs of Labs/Mics: Laboratory Tests 09/14/17 0715: Sodium Pending, Potassium Pending, Chloride Pending, Carbon Dioxide Pending, Anion Gap Pending, BUN Pending, Creatinine Pending, BUN/Creatinine Ratio Pending , CBC w Diff Pending, WBC Pending, RBC Pending, Hgb Pending, Hct Pending, MCV Pending, MCH Pending, MCHC Pending, RDW Pending, Plt Count Pending, MPV Pending Assessment/Plan Assessment: 89-year-old male male with PMH of Alzheimer dementia, hypertension, hyperlipidemia, seziure, legal blindness, atrial fibrillation not on anticoagulation, CAD, CHF with of EF 35%, recently discharged from [facility] after being treated for hypernatremia was sent to the ER for worsening lethargy and altered mental status over the course of 1 week. Assessment: 1. Hypernatremia - resolved 2. Worsening lethargy and AMS - improving 3. History of A.fib not on AC 4. History of Alzheimer's dementia Plan: * His mentation is significanly improved from admission. His Na have remained in the normal range. * Continue D5W @100ml/hr * IV Unasyn was started yesterday to cover for aspiration pneumonia. Will continue it for 7 days. * Repeat swallow eval today. However, if he fails it again, will have to discuss goals of care discussion with family. Family previously wished to think about comfort measures. * continue NPO * His prognosis is poor with advanced dementia. * Diet: NPO * DVT Prophylaxis: SC Lovenox * Code: DNR/DNI Problem List: 1. Hypernatremia Pain Ratin Pain Location: none Pain Goal: Remain pain free Pain Plan: none Tomorrow's Labs & Rationales: CBC, BEP Selwyn GRIFFIN,Nessa 09/14/17 1017: Attending MD Review Statement Attending Statement Attending MD Statement: examined this patient, discuss w/resident/PA/YARN HANDLER, agreed w/resident/PA/YARN HANDLER, reviewed EMR data (avail), discussed with nursing, discussed with case mgmt, reviewed images, amended to note Attending Assessment/Plan: Patient seen and examined, remains lethargic although was able to answer some questions today. Vital signs are main stable. Sodium level have improved on IV fluids. Patient to get repeat swallow evaluation today. If continues to fail then will have another discussion with family for possible comfort care/hospice. Patient also currently getting treated for aspiration pneumonia with antibiotics which should be continued for a total of seven-days. Continue the rest of the management patient on Lovenox for DVT prophylaxis.
[2017-09-14 08:10] LABS: ABSOLUTE BASOPHIL COUNT 0 /CUMM (0.0-0.2); ABSOLUTE EOSINOPHIL COUNT 0.1 /CUMM (0.0-0.7); ABSOLUTE GRANULOCYTE CT 7.9 /CUMM (1.4-6.5); ABSOLUTE MONOCYTE COUNT 0.9 /CUMM (0.10-0.60); BASOPHIL % 0.2 % (0.0-2.0); EOSINOPHIL % 1.2 % (0-5); MEAN CORPUSCULAR HGB 28.7 PG (27.0-31.0); MEAN CORPUSCULAR VOLUME 84.3 FL (80.0-94.0); MEAN PLATELET VOLUME 8.9 FL (7.4-10.4); PLATELET COUNT 198 /CUMM (130-400); RBC DISTRIBUTION WIDTH 15.9 % (11.5-14.5); RED BLOOD CELL CT 3.68 /CUMM (4.70-6.10); WHITE BLOOD CELL COUNT 9.9 /CUMM (4.8-10.8)
[2017-09-14 14:29] VITALS: BP 100/60
--- NOTE | 2017-09-15 07:15 | Discharge Summary ---
Visit Information Visit Dates Admission Date: 09/08/17 Discharge Date: 09/14/17 Hospital Course Course Attending Physician: Nessa Samano MD Primary Care Physician: Uday Marina MD Hospital Course: Mr Peoples is a 89-year-old male male with PMH of Alzheimer dementia, hypertension, hyperlipidemia, seziure, legal blindness, atrial fibrillation not on anticoagulation, CAD, CHF with of EF 35%, recently discharged from [facility] after being treated for hypernatremia was sent to the ER for worsening lethargy and altered mental status over the course of 1 week prior to admission. He was seen and treated for: Hypernatremia Altered Mental Status On admission, patient was extremely lethargic. Labs on admission showed severe hypernatremia with Na of 156. Initial CT head in the ED did not show any acute intracranial abnormality. He was admitted to general medicine and started on IVF with D5W with goal correction of Na 6-8meq/day. His mentation slightly improved with correction of his electrolytes. Patient was reported to have an extremely poor oral intake for the past week at the [facility]. A swallow evaluation was performed and the patient was found unable to swallow. Palliative consult was obtained with suggestions to monitor the patient for improvement 24-48 hours after correction of his electrolytes. Unfortunately, even after 4 days of resolution of his hypernatremia, his condition failed to improve. A swallow evaluation was done 3 times with consistently negative results. He was NPO for total duration of his hospital stay with IVF D5W, the only source of nutrition. Goals of care discussion was conducted with the family. The was the POA who mentioned that the patient had wishes against tube feeding. The family opted for comfort measures. The patient was discharged to hospice for further care. Allergies: Coded Allergies: adhesive (UNKNOWN 12/05/15) Significant Procedures: SERVICE DATE: 09/12/17-699 EXAM TYPE: RAD - XRY-PORTABLE CHEST XRAY FINDINGS: The lungs are well expanded. Nonspecific mild peribronchial thickening/bronchovascular prominence at the right lower lung. No other lobar consolidation, pleural effusion, pulmonary edema, or pneumothorax. No mediastinal widening. Aortic atherosclerotic calcification. No acute osseous abnormalities. IMPRESSION: Nonspecific mild peribronchial thickening/bronchovascular prominence in the right lower lung; findings may represent local small airways inflammation or possibly early pneumonia. SERVICE DATE: 09/08/17 EXAM TYPE: CAT - CT ABD & PELVIS W/O IV CONTRAST FINDINGS: Evaluation limited without intravenous contrast. LUNG BASES: There is right basilar atelectasis. Prominent mitral annular calcification is redemonstrated. No pericardial or pleural effusion. LIVER, GALLBLADDER, AND BILIARY TREE: Evaluation limited without intravenous contrast. No focal lesion seen. No intrahepatic biliary dilatation. The gallbladder is unremarkable with no evidence of radiopaque gallstones, gallbladder wall thickening, or obvious pericholecystic inflammatory changes. PANCREAS: Within normal limits. No acute inflammatory changes are seen. SPLEEN: Unremarkable. ADRENAL GLANDS: Unremarkable. KIDNEYS AND URETERS: Multiple bilateral renal cysts. Smaller lesions are too small to characterize, probably reflecting cysts, similar to the prior study. No calculi. No hydronephrosis. BLADDER: There is hyperdensity along the posterior bladder wall, from indeterminate significance. Potentially, this may reflect complex contents, calcific debris or perhaps calcification in the urinary bladder wall. Correlate with urinalysis. GASTROINTESTINAL TRACT: There is prominent stool in the rectum and rectosigmoid junction. Question some edema of the rectal wall, but no júnior inflammatory changes are seen. The large colon otherwise appears unremarkable. Normal caliber small bowel loops. No evidence of bowel obstruction. The stomach is nondistended. No free fluid. The appendix not visualized. ABDOMINAL WALL: No significant hernia is appreciated. LYMPH NODES: No pathologically enlarged lymph nodes are seen. VASCULAR: Ectatic distal descending aorta measuring 3.3 cm in AP dimension, unchanged. Moderate atherosclerotic disease in the aorta. PELVIC VISCERA: Enlarged prostate, containing coarse calcification. Seminal vesicles are symmetric. OSSEOUS STRUCTURES: Multilevel degenerative changes of the spine. IMPRESSION: 1. Prominent volume of stool in the rectum and rectosigmoid junction, with possible edema in the rectal wall. Findings are suggestive of rectal impaction. Clinically correlate. 2. There is hyperdensity along the posterior urinary bladder wall, from indeterminate etiology. Differential considerations include complex contents, calcific debris, or perhaps calcification in the urinary bladder wall. Correlate with urinalysis. 3. Bilateral renal cysts. 4. Enlarged prostate. 5. Stable ectatic distal descending aorta measuring 3.3 cm. SERVICE DATE: 09/08/17 EXAM TYPE: CAT - CT HEAD WO IV CONTRAST FINDINGS: There is no evidence of acute intracranial hemorrhage or territorial infarction. No abnormal mass effect or midline shift is seen. Myles to white matter differentiation is well preserved. No extra-axial fluid collections are identified. There is atrophy with prominence of the ventricles and the sulci and hypodensity of the periventricular white matter due to chronic small vessel ischemic disease. There is vascular calcifications of the internal carotid arteries bilaterally. The osseous structures and soft tissues are normal. Is complete opacification of the left maxillary sinus. There is air-fluid level partially opacifying the right maxillary sinus. The frontal sinuses are opacified. The mastoid air cells are normally aerated. IMPRESSION: No acute intracranial pathology. Sinus disease. SERVICE DATE: 09/08/17 EXAM TYPE: RAD - XRY-PORTABLE CHEST XRAY FINDINGS: The lung terrazas are moderately well-expanded bilaterally. There has been interval decrease in the opacities at the lung bases when compared to the prior study. There are no definite pleural effusions. The cardiac silhouette is normal. The aortic arch is calcified and unfolded. The central pulmonary vasculature appears normal. There are no acute osseous findings. IMPRESSION: 1. There are no acute cardiopulmonary findings. Disposition Summary Disposition Principal Diagnosis: Hypernatremia Dysphagia AMS Additional Diagnosis: Atrial fibrilliation Alzheimer's dementia Hypertension Seizures CAD CHF Discharge Disposition: hospice - medical facilit Discharge Instructions General Discharge Information Code Status: Do Not Resucitate/Intubat Patient's Diet: Regular - But NPO for entire duration of hospital Patient's Activity: As tolerated Follow-Up Instructions/Appts: none Medications at Discharge Discharge Medications: The following medications have been changed: Old: Risperidone (Risperidone) 0.25 MG TABLET 1 Tablet ORAL 4 TIMES A DAY as needed for AGITAT/HALLUCINATION/IRRITABIL Qty = 30 New: Risperidone (Risperidone) 0.25 MG TABLET 1 Tablet ORAL TWICE DAILY as needed for AGITAT/HALLUCINATION/IRRITABIL Qty = 30 Comments: Last Taken: 07/30/17 Time: 1626 Copies To: Salas GRIFFIN,Uday Arreola
== END 2017-09-14 18:51 | disposition hospice, home (50) | DRG 640 ==
LOC: ERH 16:27 → 2NA 19:25 → ERHI 19:25 → ENRESERV 22:09 → ENTRNSPT 22:41 → EDTRNSPTSTS 22:43 → EDTRNSPT 22:43 → 2NA 22:50 → CMPTRNSPT 22:53 → 2NA 09-09 07:55
PROVIDERS: Internal Medicine; Internal Medicine Endocrinology, Diabetes & Metabolism; Physician Assistant Medical; Student in an Organized Health Care Education/Training Program
DX: E87.0 Hyperosmolality and hypernatremia (principal); G93.41 Metabolic encephalopathy; I50.22 Chronic systolic (congestive) heart failure; E86.0 Dehydration; G30.9 Alzheimer's disease, unspecified; F02.80 Dementia in other diseases classified elsewhere, unspecified severity, without behavioral disturbance, psychotic disturbance, mood disturbance, and anxiety; Z51.5 Encounter for palliative care; I11.0 Hypertensive heart disease with heart failure; I48.0 Paroxysmal atrial fibrillation; I25.10 Atherosclerotic heart disease of native coronary artery without angina pectoris; H54.7 Unspecified visual loss; Z79.01 Long term (current) use of anticoagulants; I35.0 Nonrheumatic aortic (valve) stenosis; E78.5 Hyperlipidemia, unspecified; G40.909 Epilepsy, unspecified, not intractable, without status epilepticus; N28.1 Cyst of kidney, acquired; N40.0 Benign prostatic hyperplasia without lower urinary tract symptoms; I77.819 Aortic ectasia, unspecified site; Z66 Do not resuscitate
CPT/HCPCS: 2NASP; 84133; 84300; 36415; 36592; 71045; 74176; 81001; 82436; 82570; 93005; 93010; J1165; J1644; J1650; J7042; J7060